=== PATIENT | female | born 1940 | race Caucasian/White ===

== ENCOUNTER 2016-12-28 03:18 | Inpatient (IN) | payer MEDICARE, BC ==
[2016-12-28 03:45] LABS: Glucose,Whole Blood 325 mg/dL (75-99)
[2016-12-28] MEDS ORDERED: HYDROmorphone 1 MG/ML 1 ML SYRINGE IVP STA (03:47)
[2016-12-28] MEDS ORDERED: SODIUM CHLORIDE 0.9% 500 ML IV STA (03:47)
[2016-12-28] MEDS ORDERED: ONDANSETRON 4 MG/2 ML VIAL IVP STA (03:47)
--- NOTE | 2016-12-28 03:49 | ED ---
Abdominal Pain HPI - General Source: patient, family, RN notes reviewed Mode of arrival: wheelchair Limitations: no limitations <Mattie Rinaldi - Last Filed: 12/28/16 03:47> <Deng Amanda - Last Filed: 12/28/16 06:31> - General Chief Complaint: Abdominal Pain Stated Complaint: Abdominal Pain Time Seen by Provider: 12/28/16 03:40 - History of Present Illness Initial Comments: 76-year-old female presents to the emergency department with a chief complaint of abdominal pain. Patient states that this pain has been happening for about 2 days now. Patient states that she started to have just the lower abdominal pain. Patient states she was unable to even lay flat due to the discomfort. Patient patient has some nausea with dry heaves. Patient states she is a dialysis patient and she did not do her peritoneal last night. Patient states that she was concerned because her symptoms just keep worsening so she thought that she should be evaluated. Patient states that she has not had any fever chills that she's been aware of this. Patient denies any chest pain or shortness of breath. Patient states that her glucose has been high on the 400s. Patient states that she was concerned due to the continued pain so she thought that she should be evaluated. (Mattie Rinaldi) - Related Data Home Medications Medication Instructions Recorded Confirmed Aspirin 81 mg PO DAILY 08/24/15 12/28/16 Cholecalciferol [Vitamin D3] 1,000 unit PO BID 08/24/15 12/28/16 Lovastatin [Mevacor] 10 mg PO DAILY 08/24/15 12/28/16 Metoprolol Tartrate [Lopressor] 100 mg PO BID 08/24/15 12/28/16 amLODIPine [Norvasc] 10 mg PO HS 08/24/15 12/28/16 Allopurinol [Zyloprim] 100 mg PO DAILY 11/27/15 12/28/16 Cyanocobalamin [Vitamin B-12] 1,000 mcg PO HS 11/27/15 12/28/16 Insulin Glargine [Lantus] 50 unit SQ HS 11/27/15 12/28/16 Pyridoxine [Vitamin B-6] 100 mg PO HS 11/27/15 12/28/16 Acetaminophen [Tylenol] 1,000 mg PO BID PRN 02/06/16 12/28/16 Insulin Aspart [NovoLOG] 10 unit SQ TID-W/MEALS 02/06/16 12/28/16 Insulin Aspart [NovoLOG] See Protocol SQ TID-W/MEALS 02/06/16 12/28/16 Isosorbide Mononitrate ER [Imdur] 30 mg PO QAM 02/06/16 12/28/16 Omeprazole 40 mg PO AC-BRKFST 02/06/16 12/28/16 Previous Rx's Medication Instructions Recorded hydrALAZINE HCL [Apresoline] 25 mg PO BID #60 tab 09/01/15 Furosemide [Lasix] 80 mg PO Q12HR #60 tablet 12/02/15 Cefuroxime [Ceftin] 250 mg PO BID #14 tablet 02/07/16 Hydrocodone/Acetaminophen [[place] 1 - 2 each PO Q4HR PRN #30 tab 02/07/16 5-325] Allergies Allergy/AdvReac Type Severity Reaction Status Date / Time No Known Allergies Allergy Verified 12/28/16 03:35 Review of Systems ROS Other: All systems not noted in ROS Statement are negative. <Mattie Rinaldi - Last Filed: 12/28/16 03:47> ROS Other: All systems not noted in ROS Statement are negative. <Deng Amanda - Last Filed: 12/28/16 06:31> ROS Statement: Those systems with pertinent positive or pertinent negative responses have been documented in the HPI. Past Medical History Past Medical History: Heart Failure, Diabetes Mellitus, Hyperlipidemia, Hypertension, Myocardial Infarction ([place]), Renal Disease Additional Past Medical History / Comment(s): currently using O2 at 2L NM, Pt is a transfer from [facility] to [facility] for CHF, renal failure. Pt presented today to [facility] with MAYRA x 5 days and getting worse. She has a dry cough and increased edema bilateral legs. 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 Last Myocardial Infarction Date:: unkn- 30 or more yrs ago per EKG History of Any Multi-Drug Resistant Organisms: None Reported Past Surgical History: Back Surgery, Orthopedic Surgery Additional Past Surgical History / Comment(s): 08/31/15 EGD with bx and colonoscopy with ulcerative polyp, right shoulder surgery - humerus ORIF, left ankle ORIF, low back surgery, multiple pain procedures, L cataract removal, R knee arthroscopy. Additional Past Anesthesia/Blood Transfusion Reaction / Comment(s): Pt states she has received blood in the past without reaction. Past Psychological History: No Psychological Hx Reported Additional Psychological History / Comment(s): Pt resides with her spouse. She is independent. She does not use any assistive device. She drives. Smoking Status: Never smoker Past Alcohol Use History: None Reported Past Drug Use History: None Reported - Past Family History Sister(s) Family Medical History: Cancer Additional Family Medical History / Comment(s): Ovarian cancer Brother(s) Family Medical History: Cancer Additional Family Medical History / Comment(s): colon Mother Family Medical History: Diabetes Mellitus Additional Family Medical History / Comment(s): Mother in her 80's Father History Unknown: Yes Additional Family Medical History / Comment(s): Father had a bowel obstruction. He at 84 yrs. <Mattie Rinaldi - Last Filed: 12/28/16 03:47> General Exam Limitations: no limitations <Mattie Rinaldi - Last Filed: 12/28/16 03:47> <Deng Amanda - Last Filed: 12/28/16 06:31> - General Exam Comments Initial Comments: General: The patient is awake and alert, in no distress, and does not appear acutely ill. Eye: Pupils are equal, round and reactive to light, extra-ocular movements are intact; there is normal conjunctiva bilaterally. No signs of icterus. Ears, nose, mouth and throat: There are moist mucous membranes and no oral lesions. Neck: The neck is supple, there is no tenderness. Cardiovascular: There is a regular rate and rhythm. No murmur, rub or gallop is appreciated. Respiratory: Lungs are clear to auscultation, respirations are non-labored, breath sounds are equal. No wheezes, stridor, rales, or rhonchi. Gastrointestinal: Peritoneal dialysis drain appears to be in place Soft, distended, diffusely tender abdomen without masses or organomegaly noted. There is no rebound or guarding present. No CVA tenderness. Bowel sounds are unremarkable. Back: There is no tenderness to palpation in the midline. There is no obvious deformity. No rashes noted. Musculoskeletal: Normal ROM, no tenderness, There is no pedal edema. There is no calf tenderness or swelling. Sensation intact. Pulses equal bilaterally 2+. Neurological: CN II-XII intact, There are no obvious motor or sensory deficits. Coordination appears grossly intact. Speech is normal. Skin: Skin is warm and dry and no rashes or lesions are noted. Psychiatric: Cooperative, appropriate mood & affect, normal judgment. (Mattie Rinaldi) Course <Mattie Rinaldi - Last Filed: 12/28/16 03:47> <Deng Amanda - Last Filed: 12/28/16 06:31> Vital Signs 12/28/16 12/28/16 03:31 05:26 Temperature 99.2 F 100 F H Pulse Rate 104 H 102 H Respiratory 20 20 Rate Blood Pressure 154/73 130/61 O2 Sat by Pulse 92 L 92 L Oximetry - Reevaluation(s) Reevaluation #1: 12/28/16 03:49 This case will be signed out to Dr. Amanda (Mattie Rinaldi) Medical Decision Making <Mattie Rinaldi - Last Filed: 12/28/16 03:47> - Lab Data Result diagrams: 12/28/16 03:58 12/28/16 03:58 - Radiology Data Radiology results: report reviewed (I did review the imaging and report no acute findings or is however evidence of a possible mass in the right kidney.), image reviewed <Deng Amanda - Last Filed: 12/28/16 06:31> - Medical Decision Making The patient did get relief of a lot of the abdominal pain after the dialysate was removed. He was however cloudy does have a low-grade temperature the concern is for early peritonitis patient will be placed on empiric antibiotics she'll be admitted with nephrology consultation the lactic acid was elevated however the patient on clinical exam does not appear to be toxic. (Deng Amanda) - Lab Data Lab Results 12/28/16 12/28/16 12/28/16 Range/Units 03:43 03:58 03:58 WBC 8.1 (3.8-10.6) k/uL RBC 3.65 L (3.80-5.40) m/uL Hgb 12.5 (11.4-16.0) gm/dL Hct 40.0 (34.0-46.0) % MCV 109.4 H (80.0-100.0) fL MCH 34.3 (25.0-35.0) pg MCHC 31.4 (31.0-37.0) g/dL RDW 15.1 (11.5-15.5) % Plt Count 148 L (150-450) k/uL Neutrophils % 87 % Lymphocytes % 6 % Monocytes % 5 % Eosinophils % 0 % Basophils % 0 % Neutrophils # 7.0 (1.3-7.7) k/uL Lymphocytes # 0.5 L (1.0-4.8) k/uL Monocytes # 0.4 (0-1.0) k/uL Eosinophils # 0.0 (0-0.7) k/uL Basophils # 0.0 (0-0.2) k/uL Manual Slide Review Performed Polychromasia Present Anisocytosis (manual) Present Macrocytosis Marked PT (9.0-12.0) sec INR (<1.1) APTT (22.0-30.0) sec Sodium 135 L (137-145) mmol/L Potassium 5.4 H (3.5-5.1) mmol/L Chloride 97 L (98-107) mmol/L Carbon Dioxide 24 (22-30) mmol/L Anion Gap 14 mmol/L BUN 43 H (7-17) mg/dL Creatinine 2.04 H (0.52-1.04) mg/dL Est GFR (MDRD) Af Amer 29 (>60 ml/min/1.73 sqM) Est GFR (MDRD) Non-Af 24 (>60 ml/min/1.73 sqM) Glucose 341 H (74-99) mg/dL POC Glucose (mg/dL) 325 H (75-99) mg/dL POC Glu Malware Analyst ID Arsalan Maew Plasma Lactic Acid [place] (0.7-2.0) mmol/L Calcium 9.2 (8.4-10.2) mg/dL Total Bilirubin 1.8 H (0.2-1.3) mg/dL AST 66 H (14-36) U/L ALT 38 (9-52) U/L Alkaline Phosphatase 121 (38-126) U/L Total Protein 7.1 (6.3-8.2) g/dL Albumin 3.9 (3.5-5.0) g/dL Amylase 44 (30-110) U/L Lipase 37 (23-300) U/L Acetone, Qual Negative (Negative) 12/28/16 12/28/16 Range/Units 03:58 03:58 WBC (3.8-10.6) k/uL RBC (3.80-5.40) m/uL Hgb (11.4-16.0) gm/dL Hct (34.0-46.0) % MCV (80.0-100.0) fL MCH (25.0-35.0) pg MCHC (31.0-37.0) g/dL RDW (11.5-15.5) % Plt Count (150-450) k/uL Neutrophils % % Lymphocytes % % Monocytes % % Eosinophils % % Basophils % % Neutrophils # (1.3-7.7) k/uL Lymphocytes # (1.0-4.8) k/uL Monocytes # (0-1.0) k/uL Eosinophils # (0-0.7) k/uL Basophils # (0-0.2) k/uL Manual Slide Review Polychromasia Anisocytosis (manual) Macrocytosis PT 10.9 (9.0-12.0) sec INR 1.1 (<1.1) APTT 27.1 (22.0-30.0) sec Sodium (137-145) mmol/L Potassium (3.5-5.1) mmol/L Chloride (98-107) mmol/L Carbon Dioxide (22-30) mmol/L Anion Gap mmol/L BUN (7-17) mg/dL Creatinine (0.52-1.04) mg/dL Est GFR (MDRD) Af Amer (>60 ml/min/1.73 sqM) Est GFR (MDRD) Non-Af (>60 ml/min/1.73 sqM) Glucose (74-99) mg/dL POC Glucose (mg/dL) (75-99) mg/dL POC Glu Malware Analyst ID Plasma Lactic Acid [place] 3.1 H* (0.7-2.0) mmol/L Calcium (8.4-10.2) mg/dL Total Bilirubin (0.2-1.3) mg/dL AST (14-36) U/L ALT (9-52) U/L Alkaline Phosphatase (38-126) U/L Total Protein (6.3-8.2) g/dL Albumin (3.5-5.0) g/dL Amylase (30-110) U/L Lipase (23-300) U/L Acetone, Qual (Negative) Disposition <Mattie Rinaldi - Last Filed: 12/28/16 03:47> <Deng Amanda - Last Filed: 12/28/16 06:31> Clinical Impression: Peritonitis associated with peritoneal dialysis, Abdominal pain, Fever, Sepsis , Renal failure Disposition: ADMITTED IP TO THIS HOSP Condition: Stable
[2016-12-28 04:19] LABS: Basophils % (A) 0 %; CH 36.1; CHCM 33.2; Eosinophils % (A) 0 %; HDW 2.94; HGB 12.5 gm/dL (11.4-16.0); Luc # (Auto) 0.13; Luc % (Auto) 2; Lymphocytes # (A) 0.5 k/uL (1.0-4.8); Lymphocytes % (A) 6 %; MCH 34.3 pg (25.0-35.0); MCHC 31.4 g/dL (31.0-37.0); MCV 109.4 fL (80.0-100.0); Macrocytosis Marked; Mean Platelet Volume 7.8; Monocytes # (A) 0.4 k/uL (0-1.0); Monocytes % (A) 5 %; Neutrophils % (A) 87 %; RBC 3.65 m/uL (3.80-5.40); RDW 15.1 % (11.5-15.5); WBC 8.1 k/uL (3.8-10.6); WBC (Perox) 8.03
[2016-12-28 04:20] LABS: Alkaline Phosphatase 121 U/L (38-126); Amylase 44 U/L (30-110); Anion Gap 14 mmol/L; Calcium 9.2 mg/dL (8.4-10.2); Carbon Dioxide 24 mmol/L (22-30); Chloride 97 mmol/L (98-107); Glucose 341 mg/dL (74-99); Non-African American GFR(MDRD) 24 (>60 ml/min/1.73 sqM); Sodium 135 mmol/L (137-145)
[2016-12-28 04:23] LABS: Potassium 5.4 mmol/L (3.5-5.1); Total Protein 7.1 g/dL (6.3-8.2)
[2016-12-28 04:24] LABS: AST 66 U/L (14-36); Total Bilirubin 1.8 mg/dL (0.2-1.3)
[2016-12-28 04:25] LABS: ALT 38 U/L (9-52); Blood Urea Nitrogen 43 mg/dL (7-17)
[2016-12-28 04:34] LABS: Manual Review Performed; Polychromasia Present
[2016-12-28 04:35] LABS: INR 1.1 (<1.1); Partial Thromboplastin Time 27.1 sec (22.0-30.0); Prothrombin Time 10.9 sec (9.0-12.0)
--- NOTE | 2016-12-28 04:47 | CT ---
EXAM: CT Abdomen and Pelvis Without Intravenous Contrast. CLINICAL HISTORY: Reason: Pain TECHNIQUE: Axial computed tomography images of the abdomen and pelvis without intravenous contrast. CTDI is 17.9 mGy and DLP is 1008.5 mGy-cm Coronal and sagittal reformatted images were created and reviewed. COMPARISON: No relevant prior studies available. FINDINGS: Lower thorax: Left lower lobe 5.9 mm nodule. Right lower lobe 6.4 mm nodule. Bilateral interstitial thickening of the visualized lung bases which may reflect a degree of pulmonary edema. Cardiomegaly. ABDOMEN: Liver: Unremarkable. Gallbladder and bile ducts: Cholelithiasis. Pancreas: Unremarkable. No ductal dilation. Spleen: Unremarkable. No splenomegaly. Adrenals: Unremarkable. No mass. Kidneys and ureters: Right renal 4.7 cm mass not well evaluated. Bilateral renal lobulated contours. Stomach and bowel: Minimally dilated small bowel loops. No definite obstruction. No mucosal thickening. Appendix: Appendix is not well visualized. PELVIS: Bladder: Unremarkable. No stones. Reproductive: Unremarkable as visualized. ABDOMEN and PELVIS: Intraperitoneal space: Peritoneal dialysis catheter with a moderate amount of free fluid and a small amount of free air. Bones/joints: Osteopenia. Multilevel degenerative changes of the spine. Anterolisthesis of L4 over L5 with posterior fusion. No acute fracture. No dislocation. Soft tissues: Unremarkable. Vasculature: Unremarkable. No abdominal aortic aneurysm. Lymph nodes: Unremarkable. No enlarged lymph nodes. IMPRESSION: 1. Peritoneal dialysis catheter with a moderate amount of free fluid and a small amount of free air. 2. Cholelithiasis. 3. Left lower lobe 5.9 mm nodule. Right lower lobe 6.4 mm nodule. In low-risk patients (minimal or absent history of smoking or other known risk factors), recommend CT at 12 months. If stable, no further follow- up. For high-risk patients (history of smoking or other known risk factors), recommend initial CT at 6-12 months. If stable, repeat CT at 18-24 months. 4. Bilateral interstitial thickening of the visualized lung bases which may reflect a degree of pulmonary edema. 5. Right renal 4.7 cm mass not well evaluated. Further evaluation may be performed with pre and postcontrast CT. 6. Minimally dilated small bowel loops with no definite evidence of obstruction.
[2016-12-28] MEDS ORDERED: DIALYSIS (PERITONEAL) DEX 1.5% 2,500 ML INTRAPERIT SCH (06:00)
[2016-12-28] MEDS ORDERED: PIPERACILLIN-TAZOBACTAM 3.375 GM in DEXTROSE/WATER 1 50ML.BAG IVPB STA (06:01)
[2016-12-28] MEDS ORDERED: ONDANSETRON 4 MG/2 ML VIAL IVP PRN (06:31)
[2016-12-28] MEDS ORDERED: NALOXONE 0.4 MG/ML 1 ML VIAL IV PRN (06:31)
[2016-12-28] MEDS ORDERED: ACETAMINOPHEN TAB 500 MG TAB PO PRN (06:35)
[2016-12-28] MEDS ORDERED: IV VANCOMYCIN PER PHARMACY 1 EACH MISC MISCELLANE PRN (06:35)
[2016-12-28] MEDS ORDERED: VANCOMYCIN 1,500 MG in SODIUM CHLORIDE 0.9% 250 ML IVPB ONE (07:00)
[2016-12-28] MEDS: HYDROcodone/APAP 5-325MG 1 EACH TAB PO PRN ×4 (07:09→22:07)
[2016-12-28 08:37] LABS: Glucose,Whole Blood 254 mg/dL (75-99)
[2016-12-28] MEDS: SODIUM CHLORIDE 0.9% 1,000 ML IV SCH (09:38)
[2016-12-28] MEDS: INSULIN LISPRO (humaLOG) 300 UNIT/3 ML VIAL SQ SCH ×7 (09:40→22:11)
[2016-12-28] MEDS: PANTOPRAZOLE 40 MG TABLET PO SCH (09:42)
[2016-12-28] MEDS: CHOLECALCIFEROL 1,000 UNIT TAB PO SCH ×2 (09:43→22:10)
[2016-12-28] MEDS: ATORVASTATIN 10 MG TAB PO SCH (09:43)
[2016-12-28] MEDS: ALLOPURINOL 100 MG TAB PO SCH (09:43)
[2016-12-28] MEDS: FUROSEMIDE 80 MG TAB PO SCH ×2 (09:43→22:10)
[2016-12-28] MEDS: hydrALAZINE HCL 25 MG TAB PO SCH ×2 (09:44→22:10)
[2016-12-28] MEDS: METOPROLOL TARTRATE 50 MG TAB PO SCH (09:44)
[2016-12-28] MEDS: ISOSORBIDE MONONITRATE ER 30 MG TAB.ER.24H PO SCH (09:44)
--- NOTE | 2016-12-28 10:48 | P.NPCON ---
History of Present Illness - Reason for Consult end stage renal disease - History of Present Illness Reason for consultation: End-stage renal disease History of present illness: Patient is a 76-year-old female seen in renal consultation for end- stage renal disease. She is maintained on peritoneal dialysis which was started about 8 months ago. Patient presented with abdominal discomfort going on for the last few days. She also noticed cloudy dialysate prior to admission. She was nauseous and has been dry heaving but did tolerate oral intake this morning. Her lactic acid was 3.1 on admission and is improved to 2.3 today. She is currently maintained on IV fluids running at 100 mL an hour. Denies any chest pain or shortness of breath. Hemodynamically she's been stable. She did have a temperature of 100F this admission. Vital signs are stable. General: The patient appeared well nourished and normally developed. HEENT: Head exam is unremarkable. Neck is without jugular venous distension. LUNGS: Lungs are clear to auscultation and percussion. Breath sounds decreased. HEART: Rate and Rhythm are regular. First and second heart sounds normal. No murmurs, rubs or gallops. ABDOMEN: Abdominal exam reveals normal bowel sounds. Mildly tender to palpation. EXTREMITITES: No clubbing, cyanosis, or edema. Past Medical History Past Medical History: Heart Failure, Diabetes Mellitus, Hyperlipidemia, Hypertension, Myocardial Infarction ([place]), Renal Disease Additional Past Medical History / Comment(s): ,11/27/15 Pt is a transfer from [facility] to [facility] for CHF, renal failure. Pt presented today to [facility] with MAYRA x 5 days and getting worse. She has a dry cough. 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 Last Myocardial Infarction Date:: unkn- 30 or more yrs ago per EKG History of Any Multi-Drug Resistant Organisms: None Reported Past Surgical History: Back Surgery, Orthopedic Surgery Additional Past Surgical History / Comment(s): 08/31/15 EGD with bx and colonoscopy with ulcerative polyp, right shoulder surgery - humerus ORIF, left ankle ORIF, low back surgery, multiple pain procedures, L cataract removal, R knee arthroscopy. Past Anesthesia/Blood Transfusion Reactions: No Reported Reaction Additional Past Anesthesia/Blood Transfusion Reaction / Comment(s): Pt states she has received blood in the past without reaction. Past Psychological History: No Psychological Hx Reported Additional Psychological History / Comment(s): Pt resides with her spouse. She is independent. She does not use any assistive device. She drives. Smoking Status: Never smoker Past Alcohol Use History: None Reported Past Drug Use History: None Reported - Past Family History Sister(s) Family Medical History: Cancer Additional Family Medical History / Comment(s): Ovarian cancer Brother(s) Family Medical History: Cancer Additional Family Medical History / Comment(s): colon Mother Family Medical History: Diabetes Mellitus Additional Family Medical History / Comment(s): Mother in her 80's Father History Unknown: Yes Additional Family Medical History / Comment(s): Father had a bowel obstruction. He at 84 yrs. Medications and Allergies Home Medications Medication Instructions Recorded Confirmed Type Aspirin 81 mg PO DAILY 08/24/15 12/28/16 History Cholecalciferol [Vitamin D3] 1,000 unit PO BID 08/24/15 12/28/16 History Lovastatin [Mevacor] 10 mg PO DAILY 08/24/15 12/28/16 History Metoprolol Tartrate [Lopressor] 100 mg PO BID 08/24/15 12/28/16 History amLODIPine [Norvasc] 10 mg PO HS 08/24/15 12/28/16 History Allopurinol [Zyloprim] 100 mg PO DAILY 11/27/15 12/28/16 History Cyanocobalamin [Vitamin B-12] 1,000 mcg PO HS 11/27/15 12/28/16 History Insulin Glargine [Lantus] 50 unit SQ HS 11/27/15 12/28/16 History Pyridoxine [Vitamin B-6] 100 mg PO HS 11/27/15 12/28/16 History Acetaminophen [Tylenol] 1,000 mg PO BID PRN 02/06/16 12/28/16 History Insulin Aspart [NovoLOG] 10 unit SQ TID-W/MEALS 02/06/16 12/28/16 History Insulin Aspart [NovoLOG] See Protocol SQ TID-W/MEALS 02/06/16 12/28/16 History Isosorbide Mononitrate ER [Imdur] 30 mg PO QAM 02/06/16 12/28/16 History Omeprazole 40 mg PO AC-BRKFST 02/06/16 12/28/16 History Allergies Allergy/AdvReac Type Severity Reaction Status Date / Time No Known Allergies Allergy Verified 12/28/16 03:35 Physical Exam Vitals: Vital Signs Temp Pulse Pulse Resp BP BP Pulse Ox 12/28/16 08:38 100 16 12/28/16 08:36 98.1 F 100 16 135/62 97 12/28/16 07:05 99 20 140/59 96 Intake and Output 12/27/16 12/28/16 12/28/16 22:59 06:59 14:59 Other: Voiding Method Toilet Results - Lab Results Most recent lab results Calcium 9.2 mg/dL (8.4-10.2) 12/28/16 03:58 12/28/16 03:58 12/28/16 03:58 Assessment and Plan Plan: Assessment: #1. End-stage renal disease maintained on peritoneal dialysis. #2. Abdominal discomfort possibly related to peritonitis. She did have cloudy dialysate prior to admission. Currently maintained on IV antibiotics. #3. Chronic kidney disease mineral bone disease. #4. Lactic acidosis. #5. Insulin-dependent diabetes mellitus. Plan: Check peritoneal fluid for cell count, culture, and Gram stain. Continue with IV antibiotics for now. I will give her 1 g of intraperitoneal vancomycin as well as Fortaz. Check phosphorus level. Nephrocaps daily. Decrease rate of IV fluids to 50 mL an hour. Continue with 2 L 1.5% changes every 6 hours. Thank you for the consultation. I will continue to follow the patient with you during her hospital stay.
[2016-12-28] MEDS: ASPIRIN 81 MG CHEW PO SCH (11:16)
[2016-12-28 12:02] LABS: Glucose,Whole Blood 221 mg/dL (75-99)
[2016-12-28 12:06] LABS: Amorphous Sediment,Urine Rare /hpf; Appearance,Urine Cloudy (Clear); Bacteria,Urine Many /hpf; Bilirubin,Urine Negative (Negative); Glucose,Urine (UA) Negative (Negative); Ketones,Urine Negative (Negative); Leukocyte Esterase,Urine Large (Negative); Mucus,Urine Occasional /hpf; Nitrite,Urine Negative (Negative); Particle Count 52441; Protein,Urine 1+ (Negative); RBC,Urine 5 /hpf (0-5); Specific Gravity,Urine 1.017 (1.001-1.035); Squamous Epithelial Cell,Urine 5 /hpf (0-4); UA Billing (MACRO vs. MICRO) MICRO; Urobilinogen,Urine <2.0 mg/dL (<2.0); WBC,Urine 26 /hpf (0-5)
[2016-12-28] MEDS: DIALYSIS DEX INTRAPERIT SCH (12:44)
[2016-12-28 14:26] LABS: Hemoglobin A1C 7.8 % (4.2-6.1)
[2016-12-28 15:32] LABS: RBC, Body Fluid 2550 /uL
[2016-12-28 16:44] LABS: Glucose,Whole Blood 151 mg/dL (75-99)
[2016-12-28] MEDS: PIPERACILLIN-TAZOBACTAM 3.375 GM in DEXTROSE/WATER 1 50ML.BAG IVPB SCH (16:47)
--- NOTE | 2016-12-28 17:57 | P.HPIM ---
History of Present Illness H&P Date: 12/28/16 76-year-old female currently maintained on peritoneal dialysis via cycler comes in to the hospital with the complaint of abdominal pain that is diffuse in nature 3-4 days. Patient states that the pain has progressively gotten worse associated with some difficulty breathing as well. Patient was noted to have diffuse abdominal pain PD catheter insertion site appeared to be normal. Peritoneal fluid was removed for evaluation. With the clinical suspicion for a peritonitis. Patient was started on IV antibiotics and admitted to the hospital. Patient states that she feels better since admission. Denies having any chest pain difficulty breathing nausea vomiting or diarrhea. Patient does make. Denies having any urinary urgency or frequency at this time. Patient has been maintained on peritoneal dialysis for over 8 months and has not had any issues since then. Review of Systems All systems: negative Past Medical History Past Medical History: Heart Failure, Diabetes Mellitus, Hyperlipidemia, Hypertension, Myocardial Infarction (CO), Renal Disease Additional Past Medical History / Comment(s): ,11/27/15 Pt is a transfer from [facility] to [facility] for CHF, renal failure. Pt presented today to [facility] with MAYRA x 5 days and getting worse. She has a dry cough. 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 Last Myocardial Infarction Date:: unkn- 30 or more yrs ago per EKG History of Any Multi-Drug Resistant Organisms: None Reported Past Surgical History: Back Surgery, Orthopedic Surgery Additional Past Surgical History / Comment(s): 08/31/15 EGD with bx and colonoscopy with ulcerative polyp, right shoulder surgery - humerus ORIF, left ankle ORIF, low back surgery, multiple pain procedures, L cataract removal, R knee arthroscopy. Past Anesthesia/Blood Transfusion Reactions: No Reported Reaction Additional Past Anesthesia/Blood Transfusion Reaction / Comment(s): Pt states she has received blood in the past without reaction. Past Psychological History: No Psychological Hx Reported Additional Psychological History / Comment(s): Pt resides with her spouse. She is independent. She does not use any assistive device. She drives. Smoking Status: Never smoker Past Alcohol Use History: None Reported Past Drug Use History: None Reported - Past Family History Sister(s) Family Medical History: Cancer Additional Family Medical History / Comment(s): Ovarian cancer Brother(s) Family Medical History: Cancer Additional Family Medical History / Comment(s): colon Mother Family Medical History: Diabetes Mellitus Additional Family Medical History / Comment(s): Mother in her 80's Father History Unknown: Yes Additional Family Medical History / Comment(s): Father had a bowel obstruction. He at 84 yrs. Medications and Allergies Home Medications Medication Instructions Recorded Confirmed Type Aspirin 81 mg PO DAILY 08/24/15 12/28/16 History Cholecalciferol [Vitamin D3] 1,000 unit PO BID 08/24/15 12/28/16 History Lovastatin [Mevacor] 10 mg PO DAILY 08/24/15 12/28/16 History Metoprolol Tartrate [Lopressor] 50 mg PO BID 08/24/15 12/28/16 History amLODIPine [Norvasc] 5 mg PO HS 08/24/15 12/28/16 History Allopurinol [Zyloprim] 100 mg PO DAILY 11/27/15 12/28/16 History Cyanocobalamin [Vitamin B-12] 1,000 mcg PO HS 11/27/15 12/28/16 History Insulin Glargine [Lantus] 50 unit SQ HS 11/27/15 12/28/16 History Pyridoxine [Vitamin B-6] 100 mg PO HS 11/27/15 12/28/16 History Acetaminophen [Tylenol] 1,000 mg PO BID PRN 02/06/16 12/28/16 History Insulin Aspart [NovoLOG] 10 unit SQ TID-W/MEALS 02/06/16 12/28/16 History Insulin Aspart [NovoLOG] See Protocol SQ TID-W/MEALS 02/06/16 12/28/16 History Isosorbide Mononitrate ER [Imdur] 30 mg PO QAM 02/06/16 12/28/16 History Omeprazole 40 mg PO AC-BRKFST 02/06/16 12/28/16 History Allergies Allergy/AdvReac Type Severity Reaction Status Date / Time No Known Allergies Allergy Verified 12/28/16 11:24 Physical Exam Vitals: Vital Signs Temp Pulse Pulse Resp BP BP Pulse Ox 12/28/16 17:00 97.1 F L 90 18 128/61 92 L 12/28/16 11:15 98 16 126/57 96 12/28/16 08:38 100 16 12/28/16 08:36 98.1 F 100 16 135/62 97 12/28/16 07:05 99 20 140/59 96 Intake and Output 12/28/16 12/28/16 12/28/16 06:59 14:59 22:59 Intake Total 850 Output Total 250 Balance 600 Intake: IV 600 Sodium Chloride 0.9% 1, 600 000 ml @ 50 mls/hr IV . Q20H [facility] Rx#:[id number] Intake, IV Titration 250 Amount Vancomycin 1,500 mg In 250 Sodium Chloride 0.9% 250 ml @ 125 mls/hr IVPB ONCE ONE Rx#:[id number] Output: Urine 250 Other: Voiding Method Toilet Toilet Physical exam Gen. appearance oriented 3 in no distress Neck is supple no JVD Lungs good air entry clear to auscultation no rhonchi or wheezing Heart S1-S2 heard regular rate and rhythm no murmurs appreciated Abdomen soft tender to palpation in epigastric region no organomegaly PD catheter Neurologically cranial nerves II-12 grossly intact no focal motor or sensory deficits noted Skin no abnormalities appreciated Results CBC & Chem 7: 12/28/16 03:58 12/28/16 03:58 Labs: Abnormal Lab Results - Last 24 Hours (Table) 12/28/16 12/28/16 12/28/16 Range/Units 07:49 07:49 08:33 POC Glucose (mg/dL) 254 H (75-99) mg/dL Hemoglobin A1c 7.8 H (4.2-6.1) % Plasma Lactic Acid [place] 2.3 H* (0.7-2.0) mmol/L Urine Appearance (Clear) Urine Protein (Negative) Ur Leukocyte Esterase (Negative) Urine WBC (0-5) /hpf Ur Squamous Epith Cells (0-4) /hpf Amorphous Sediment (None) /hpf Urine Bacteria (None) /hpf Urine Mucus (None) /hpf 12/28/16 12/28/16 12/28/16 Range/Units 11:30 12:00 16:43 POC Glucose (mg/dL) 221 H 151 H (75-99) mg/dL Hemoglobin A1c (4.2-6.1) % Plasma Lactic Acid [place] (0.7-2.0) mmol/L Urine Appearance Cloudy H (Clear) Urine Protein 1+ H (Negative) Ur Leukocyte Esterase Large H (Negative) Urine WBC 26 H (0-5) /hpf Ur Squamous Epith Cells 5 H (0-4) /hpf Amorphous Sediment Rare H (None) /hpf Urine Bacteria Many H (None) /hpf Urine Mucus Occasional H (None) /hpf Thrombosis Risk Factor Assmnt - Choose All That Apply Each Risk Factor Represents 2 Points: Age 61-74 years Thrombosis Risk Factor Assessment Total Risk Factor Score: 2 Thrombosis Risk Factor Assessment Level: Low Risk Assessment and Plan Plan: End-stage renal disease on PD #2 hyperkalemia #3 peritonitis #4 pulmonary nodules bilaterally will need to be followed up as an outpatient #5 history of hypertension #6 history of HF PEF currently stable Plan Continue antibody therapy. Vitals are stable. Continue pain control. Was sent for cell count cultures. Await final cultures. Does appear to have some WBC however clinical diagnosis of peritonitis is present.
[2016-12-28] MEDS ORDERED: DIALYSIS DEX INTRAPERIT ONE (18:00)
[2016-12-28] MEDS ORDERED: VANCOMYCIN INTRAPERIT ONE (18:00)
[2016-12-28] MEDS ORDERED: CEFTAZIDIME INTRAPERIT ONE (18:00)
[2016-12-28 21:43] LABS: Glucose,Whole Blood 132 mg/dL (75-99)
[2016-12-28] MEDS: INSULIN GLARGINE 100 UNIT/ML 10 ML VIAL SQ SCH (22:08)
[2016-12-28] MEDS: amLODIPine 10 MG TAB PO SCH (22:10)
[2016-12-28] MEDS: CYANOCOBALAMIN 500 MCG TAB PO SCH (22:10)
[2016-12-28] MEDS: PYRIDOXINE 50 MG TAB PO SCH (22:10)
[2016-12-29] MEDS: DIALYSIS DEX INTRAPERIT SCH ×4 (00:35→18:13)
[2016-12-29] MEDS: METOPROLOL TARTRATE 50 MG TAB PO SCH ×3 (01:52→21:13)
[2016-12-29] MEDS: HYDROcodone/APAP 5-325MG 1 EACH TAB PO PRN ×3 (02:03→10:40)
[2016-12-29] MEDS: PIPERACILLIN-TAZOBACTAM 3.375 GM in DEXTROSE/WATER 1 50ML.BAG IVPB SCH ×3 (02:06→18:13)
[2016-12-29 06:15] LABS: Glucose,Whole Blood 250 mg/dL (75-99)
[2016-12-29] MEDS: SODIUM CHLORIDE 0.9% 1,000 ML IV SCH ×2 (06:22→21:49)
[2016-12-29] MEDS: PANTOPRAZOLE 40 MG TABLET PO SCH (06:22)
[2016-12-29] MEDS: INSULIN LISPRO (humaLOG) 300 UNIT/3 ML VIAL SQ SCH ×8 (07:37→21:25)
[2016-12-29] MEDS: ISOSORBIDE MONONITRATE ER 30 MG TAB.ER.24H PO SCH (08:20)
[2016-12-29] MEDS: CHOLECALCIFEROL 1,000 UNIT TAB PO SCH ×2 (08:20→21:13)
[2016-12-29] MEDS: FUROSEMIDE 80 MG TAB PO SCH ×2 (08:20→21:14)
[2016-12-29] MEDS: ASPIRIN 81 MG CHEW PO SCH (08:20)
[2016-12-29] MEDS: ALLOPURINOL 100 MG TAB PO SCH (08:20)
[2016-12-29] MEDS: ATORVASTATIN 10 MG TAB PO SCH (08:20)
[2016-12-29] MEDS: hydrALAZINE HCL 25 MG TAB PO SCH ×2 (08:20→21:13)
--- NOTE | 2016-12-29 08:53 | P.PN ---
Subjective Patient is seen in follow-up for end-stage renal disease. She is maintained on peritoneal dialysis. Patient presented with abdominal pain along with nausea and dry heaving. Dialysate fluid was also noted to be cloudy. Her cell count is over 5000 with 93% PMNs. She did receive intraperitoneal vancomycin on December 28 as well as 1 g Fortaz intraperitoneally. She is also on IV Zosyn and vancomycin. She continues to have abdominal discomfort. Appetite is fair. Vital signs are stable. General: The patient appeared well nourished and normally developed. HEENT: Head exam is unremarkable. Neck is without jugular venous distension. LUNGS: Lungs are clear to auscultation and percussion. Breath sounds decreased. HEART: Rate and Rhythm are regular. First and second heart sounds normal. No murmurs, rubs or gallops. ABDOMEN: Abdominal exam reveals normal bowel sounds. Non-tender and non- distended. No evidence of peritonitis. EXTREMITITES: No clubbing, cyanosis, or edema. Objective - Vital Signs Vital signs: Vital Signs Temp 96.1 F L 12/29/16 08:10 Pulse 70 12/29/16 08:10 Resp 16 12/29/16 08:10 BP 104/55 12/29/16 08:10 Pulse Ox 92 L 12/29/16 08:10 Intake & Output 12/28/16 12/29/16 12/29/16 18:59 06:59 18:59 Intake Total 850 Output Total 250 200 Balance 600 -200 Intake: IV 600 Sodium Chloride 0.9% 1, 600 000 ml @ 50 mls/hr IV . Q20H [facility] Rx#:[id number] Intake, IV Titration 250 Amount Vancomycin 1,500 mg In 250 Sodium Chloride 0.9% 250 ml @ 125 mls/hr IVPB ONCE ONE Rx#:[id number] Output: Urine 250 200 Other: Voiding Method Toilet Toilet - Labs CBC & Chem 7: 12/28/16 03:58 12/28/16 03:58 Labs: Abnormal Lab Results - Last 24 Hours (Table) 12/28/16 12/28/16 12/28/16 Range/Units 07:49 07:49 11:30 POC Glucose (mg/dL) (75-99) mg/dL Hemoglobin A1c 7.8 H (4.2-6.1) % Plasma Lactic Acid [place] 2.3 H* (0.7-2.0) mmol/L Urine Appearance Cloudy H (Clear) Urine Protein 1+ H (Negative) Ur Leukocyte Esterase Large H (Negative) Urine WBC 26 H (0-5) /hpf Ur Squamous Epith Cells 5 H (0-4) /hpf Amorphous Sediment Rare H (None) /hpf Urine Bacteria Many H (None) /hpf Urine Mucus Occasional H (None) /hpf 12/28/16 12/28/16 12/28/16 Range/Units 12:00 16:43 21:41 POC Glucose (mg/dL) 221 H 151 H 132 H (75-99) mg/dL Hemoglobin A1c (4.2-6.1) % Plasma Lactic Acid [place] (0.7-2.0) mmol/L Urine Appearance (Clear) Urine Protein (Negative) Ur Leukocyte Esterase (Negative) Urine WBC (0-5) /hpf Ur Squamous Epith Cells (0-4) /hpf Amorphous Sediment (None) /hpf Urine Bacteria (None) /hpf Urine Mucus (None) /hpf 12/29/16 Range/Units 06:13 POC Glucose (mg/dL) 250 H (75-99) mg/dL Hemoglobin A1c (4.2-6.1) % Plasma Lactic Acid [place] (0.7-2.0) mmol/L Urine Appearance (Clear) Urine Protein (Negative) Ur Leukocyte Esterase (Negative) Urine WBC (0-5) /hpf Ur Squamous Epith Cells (0-4) /hpf Amorphous Sediment (None) /hpf Urine Bacteria (None) /hpf Urine Mucus (None) /hpf Microbiology - Last 24 Hours (Table) 12/28/16 13:20 Gram Stain - Preliminary Peritoneal Fluid Body Fluid Culture - Preliminary 12/28/16 11:30 Urine Culture - Preliminary Urine,Clean Catch Assessment and Plan Plan: Assessment: #1. End-stage renal disease maintained on peritoneal dialysis. #2. Abdominal discomfort secondary to peritonitis. #3. Chronic kidney disease mineral bone disease. #4. Lactic acidosis. #5. Insulin-dependent diabetes mellitus. Plan: Repeat peritoneal fluid for cell count, culture, and Gram stain. Maintain 1 g intraperitoneal Fortaz daily (started 12/28). She also received intraperitoneal vancomycin on December 28. Nephrocaps daily. Decrease rate of IV fluids to 50 mL an hour. Hep-Lock if tolerating oral intake. Repeat lactic acid level. Continue with 2 L 1.5% changes every 6 hours. Obtain infectious disease consultation.
[2016-12-29] MEDS ORDERED: CEFTAZIDIME INTRAPERIT SCH (12:00)
[2016-12-29] MEDS ORDERED: VANCOMYCIN 1,000 MG in SODIUM CHLORIDE 0.9% 250 ML IVPB ONE (12:00)
[2016-12-29] MEDS ORDERED: DIALYSIS DEX INTRAPERIT SCH ×2 (12:00→18:00)
[2016-12-29 12:07] LABS: Glucose,Whole Blood 192 mg/dL (75-99)
[2016-12-29] MEDS: FOLIC ACID-VIT B COMPLEX-VIT C 1 CAP PO SCH (12:42)
[2016-12-29] MEDS: HYDROcodone/APAP 7.5-325MG 1 EACH TAB PO PRN ×2 (14:11→18:13)
[2016-12-29] MEDS: LACTULOSE 20 GM/30 ML CUP PO SCH ×2 (14:12→21:14)
--- NOTE | 2016-12-29 14:53 | XR ---
EXAMINATION TYPE: XR abdomen 2V DATE OF EXAM ORDERED: 12/29/2016 2:44 PM HISTORY: Peritonitis/constipation. COMPARISON: Previous CT scan dated 12/28/2016. FINDINGS: There are dilated loops of bowel within the midabdomen. Some of these have haustral markin gs. Others demonstrate valvula conniventes. These are moderately dilated. There is been a previous interpedicular fusion of the lower lumbar spine. There is a dialysis catheter in place with its tip coiled in the pelvis. No free fluid and no free ai r is seen. IMPRESSION: FINDINGS MOST CONSISTENT WITH GENERALIZED ILEUS.
--- NOTE | 2016-12-29 15:49 | P.PN ---
Subjective 76-year-old female currently maintained on peritoneal dialysis via cycler comes in to the hospital with the complaint of abdominal pain that is diffuse in nature 3-4 days. Patient states that the pain has progressively gotten worse associated with some difficulty breathing as well. Patient was noted to have diffuse abdominal pain PD catheter insertion site appeared to be normal. Peritoneal fluid was removed for evaluation. With the clinical suspicion for a peritonitis. Patient was started on IV antibiotics and admitted to the hospital. Patient states that she feels better since admission. Denies having any chest pain difficulty breathing nausea vomiting or diarrhea. Patient does make. Denies having any urinary urgency or frequency at this time. Patient has been maintained on peritoneal dialysis for over 8 months and has not had any issues since then. 12/29/2016 Patient states that her abdominal pain is persistent however denies any fevers chills nausea vomiting. Was draining during the time of my evaluation. Objective - Vital Signs Vital signs: Vital Signs Temp 96.1 F L 12/29/16 08:10 Pulse 70 12/29/16 08:10 Resp 16 12/29/16 08:10 BP 104/55 12/29/16 08:10 Pulse Ox 92 L 12/29/16 08:10 Intake & Output 12/28/16 12/29/16 12/29/16 18:59 06:59 18:59 Intake Total 850 220 Output Total 250 200 Balance 600 -200 220 Intake: IV 600 Sodium Chloride 0.9% 1, 600 000 ml @ 50 mls/hr IV . Q20H [facility] Rx#:[id number] Intake, IV Titration 250 Amount Vancomycin 1,500 mg In 250 Sodium Chloride 0.9% 250 ml @ 125 mls/hr IVPB ONCE ONE Rx#:[id number] Oral 220 Output: Urine 250 200 Other: Voiding Method Toilet Toilet - Exam Gen. appears alert oriented 3 in no distress Lungs good air movement trace crackles on the right base no rhonchi or wheezing Heart S1-S2 heard regular rate and rhythm no murmurs. Abdomen is tender diffusely PD catheter in place Lower extremity is no edema noted Neuro exam no focal motor or sensory deficits noted. - Labs CBC & Chem 7: 12/28/16 03:58 12/28/16 03:58 Labs: Abnormal Lab Results - Last 24 Hours (Table) 12/28/16 12/28/16 12/29/16 Range/Units 16:43 21:41 06:13 POC Glucose (mg/dL) 151 H 132 H 250 H (75-99) mg/dL Plasma Lactic Acid [place] (0.7-2.0) mmol/L 12/29/16 12/29/16 Range/Units 09:20 12:05 POC Glucose (mg/dL) 192 H (75-99) mg/dL Plasma Lactic Acid [place] 2.3 H* (0.7-2.0) mmol/L Microbiology - Last 24 Hours (Table) 12/28/16 13:20 Gram Stain - Preliminary Peritoneal Fluid Body Fluid Culture - Preliminary 12/28/16 11:30 Urine Culture - Preliminary Urine,Clean Catch Assessment and Plan Plan: End-stage renal disease on PD #2 hyperkalemia #3 peritonitis #4 pulmonary nodules bilaterally will need to be followed up as an outpatient #5 history of hypertension #6 history of HF PEF currently stable Plan continue antibiotic therapy await final cultures infectious disease consult.
[2016-12-29 16:49] LABS: Glucose,Whole Blood 136 mg/dL (75-99)
[2016-12-29] MEDS: CEFTAZIDIME INTRAPERIT SCH (18:13)
[2016-12-29 19:19] LABS: RBC, Body Fluid 90 /uL
--- NOTE | 2016-12-29 20:11 | CONS ---
DATE OF CONSULTATION: 12/29/2016 REASON FOR CONSULTATION: PD catheter associated urinary peritonitis. HISTORY OF PRESENT ILLNESS: The patient is a 76-year-old female with past medical history significant for end-stage renal disease on peritoneal dialysis since February 2016. The patient did not have any prior episodes of peritonitis. The patient said she was doing well until when she started having abdominal pain. Pain has been mostly generalized describing to be sharp in nature, about 7 to 8 out of 10. The patient denies significant nausea, vomiting or any diarrhea with it. The next day on Friday, the patient noticed the peritoneal fluid is getting more cloudy. With these symptoms, the patient did present to the [facility] ER. The patient had been evaluated by the ER physician. The patient did have a low-grade fever of 100 and did have a normal white count of 8.1. The patient did have peritoneal fluid which did show a white count of 5425 with 93% WB polymorph. Patient did have a UA that has been positive as well with an elevated lactic acid 2.3. The peritoneal fluid culture now showing gram-negative bacilli. Patient started on IV vancomycin in addition to the Fortaz and the dialysis. I was asked to see the patient for further recommendation regarding antibiotic therapy. REVIEW OF SYSTEMS: CONSTITUTIONAL: Positive for weakness and low-grade fever. EYES: No complaint. ENT: No complaint. RESPIRATORY: No complaint. CARDIOVASCULAR: No complaint. GENITOURINARY: No complaint. GASTROINTESTINAL: As per HPI. MUSCULOSKELETAL: No complaint. INTEGUMENTARY: No complaint. PSYCHOLOGIC: No complaint. ENDOCRINE: No complaint. NEUROLOGIC: No complaint. Past medical history significant for end stage renal disease on peritoneal dialysis, hypertension, hyperlipidemia, diabetes mellitus, heart failure, myocardial infarction, history of recurrent urinary tract infection. PAST SURGICAL HISTORY: Back surgery, PD catheter placement, EGD with biopsy. Left ankle ORIF, left cataract removal and right knee arthroscopy. SOCIAL HISTORY: The patient denies smoking, drinking or drug use. FAMILY HISTORY: Sister with ovarian cancer and one brother with colon cancer. Mother with history of diabetes. ALLERGIES: No known drug allergies. MEDICATIONS: Currently the patient is on: 1. Tylenol. 2. Robinson. 3. Zyloprim. 4. Norvasc. 5. Aspirin. 6. Lipitor. 7. Ceftazidime with dialysis. 8. Vitamin D3. 9. Lasix. 10. Hydralazine. 11. Lantus. 12. Humalog. 13. Imdur. 14. Lactulose. 15. Lopressor. 16. Vancomycin, pharmacy to dose. 17. Zofran. 18. Protonix. 19. Piptazobactam. On examination, blood pressure is 101/50 with a pulse of 73, temperature 96.3. She is 93% on 3 L nasal cannula. General description is an elderly female up in the bed in no distress. Patient is afebrile. No tachypnea or respiratory muscles of aspiration use. HEENT: No pallor. No scleral icterus. Oral mucous membrane dry. NECK: Trachea central, no thyromegaly. LUNGS: Unlabored breathing. Clear to auscultation anteriorly. HEART: S1, S2 with regular rate and rhythm. ABDOMEN: Soft, mildly tender. No evidence of any tunnel infection at the PD catheter. EXTREMITIES: No edema of feet. SKIN EXAMINATION: No rash or mass palpable. NEUROLOGICAL: The patient is awake, alert, oriented x3. Mood and affect normal. LABS: Hemoglobin is 12.5, white count 8.1 BUN of 23, creatinine 2.04. Potassium is 5.4, bilirubin slightly elevated. Peritoneal fluid was yellow and cloudy with nucleated cells , the peritoneal fluid culture showing gram-negative bacilli. The patient did have CT of the abdomen and pelvis which did show free fluid no free air, cholelithiasis, nodule left lower lobe, bilateral thickening of the lung bases right renal calculus and no evidence of any obstruction. DIAGNOSTIC IMPRESSION AND PLAN: Patient with PD catheter associated peritonitis with the peritoneal fluid showing a gram-negative could be either Escherichia coli as the patient has mild pain on antibiotic in the recent past and this being her first episode and no evidence of any tunnel infection. PLAN: 1. We will continue the patient on Ceftazidime in her dialysis bag. However, if the blood cultures are negative we will discontinue on Zosyn as well as vancomycin. 2. Depending upon the final ID of this pathogen, we will determine discharge antibiotic. Thank you for this consultation. We will follow this patient along with you. ELA
[2016-12-29 21:08] LABS: Glucose,Whole Blood 178 mg/dL (75-99)
[2016-12-29] MEDS: PYRIDOXINE 50 MG TAB PO SCH (21:13)
[2016-12-29] MEDS: CYANOCOBALAMIN 500 MCG TAB PO SCH (21:13)
[2016-12-29] MEDS: amLODIPine 10 MG TAB PO SCH (21:13)
[2016-12-29] MEDS: INSULIN GLARGINE 100 UNIT/ML 10 ML VIAL SQ SCH (21:17)
[2016-12-30] MEDS: DIALYSIS DEX INTRAPERIT SCH ×4 (00:09→19:09)
[2016-12-30] MEDS: HYDROcodone/APAP 7.5-325MG 1 EACH TAB PO PRN ×4 (00:21→21:20)
[2016-12-30] MEDS: PIPERACILLIN-TAZOBACTAM 3.375 GM in DEXTROSE/WATER 1 50ML.BAG IVPB SCH ×2 (00:21→08:25)
[2016-12-30 02:20] LABS: Glucose,Whole Blood 170 mg/dL (75-99)
[2016-12-30 06:37] LABS: Basophils % (A) 0 %; CH 35.1; CHCM 31.3; Eosinophils # (A) 0.4 k/uL (0-0.7); Eosinophils % (A) 4 %; HCT 36.2 % (34.0-46.0); HDW 3.03; HGB 10.9 gm/dL (11.4-16.0); Hypochromasia Slight; Luc # (Auto) 0.33; Luc % (Auto) 3; Lymphocytes % (A) 10 %; MCH 33.9 pg (25.0-35.0); MCV 112.8 fL (80.0-100.0); Macrocytosis Marked; Mean Platelet Volume 8.9; Monocytes # (A) 0.7 k/uL (0-1.0); Monocytes % (A) 7 %; Neutrophils # (A) 7.7 k/uL (1.3-7.7); Neutrophils % (A) 76 %; RBC 3.21 m/uL (3.80-5.40); RDW 14.8 % (11.5-15.5); WBC 10.2 k/uL (3.8-10.6); WBC (Perox) 10.51
[2016-12-30 06:50] LABS: Calcium 8.3 mg/dL (8.4-10.2); Magnesium 1.7 mg/dL (1.6-2.3); Potassium 4.6 mmol/L (3.5-5.1); Total Protein 5.9 g/dL (6.3-8.2)
[2016-12-30 07:06] LABS: Glucose,Whole Blood 182 mg/dL (75-99)
[2016-12-30] MEDS: INSULIN LISPRO (humaLOG) 300 UNIT/3 ML VIAL SQ SCH ×7 (07:25→20:17)
[2016-12-30] MEDS: PANTOPRAZOLE 40 MG TABLET PO SCH (07:25)
[2016-12-30 07:54] LABS: Large Platelets Present; Polychromasia Present
[2016-12-30 07:58] LABS: Manual Review Performed
[2016-12-30] MEDS: ASPIRIN 81 MG CHEW PO SCH (08:23)
[2016-12-30] MEDS: ALLOPURINOL 100 MG TAB PO SCH (08:23)
[2016-12-30] MEDS: CHOLECALCIFEROL 1,000 UNIT TAB PO SCH ×2 (08:23→20:25)
[2016-12-30] MEDS: ISOSORBIDE MONONITRATE ER 30 MG TAB.ER.24H PO SCH (08:23)
[2016-12-30] MEDS: FUROSEMIDE 80 MG TAB PO SCH ×2 (08:23→20:25)
[2016-12-30] MEDS: ATORVASTATIN 10 MG TAB PO SCH (08:23)
[2016-12-30] MEDS: hydrALAZINE HCL 25 MG TAB PO SCH ×2 (08:24→20:25)
[2016-12-30] MEDS: METOPROLOL TARTRATE 50 MG TAB PO SCH ×2 (08:25→20:26)
--- NOTE | 2016-12-30 09:15 | XR ---
EXAMINATION TYPE: XR chest 1V portable DATE OF EXAM: 12/30/2016 7:01 AM COMPARISON: 08/28/2015 HISTORY: Shortness of breath TECHNIQUE: Single frontal view of the chest is obtained. FINDINGS: Bilateral areas of subsegmental consolidation noted in the heart is enlarged. No pneumotho rax. IMPRESSION: 1. Limited inspiration with subsegmental consolidation correlate for atelectasis versus pneumonia.
[2016-12-30] MEDS: LACTULOSE 20 GM/30 ML CUP PO SCH ×3 (09:22→20:19)
[2016-12-30 12:01] LABS: Glucose,Whole Blood 162 mg/dL (75-99)
[2016-12-30] MEDS: FOLIC ACID-VIT B COMPLEX-VIT C 1 CAP PO SCH (13:05)
--- NOTE | 2016-12-30 14:08 | PN ---
Patient is seen for followup for end-stage renal disease. She is currently maintained on peritoneal dialysis. She was admitted to the hospital with PD peritonitis. Fluid culture grew Klebsiella and patient is being seen by ID and maintained on IV ceftazidime. Her cell count has decreased overall. She states she is feeling better. On examination, blood pressure is 104/55, heart rate 74 per minute. She is afebrile. Examination of the heart, S1 and S2. Examination of the lungs, decreased breath sounds at the bases. Abdomen is soft, nontender. Examination of lower extremities shows no significant edema. TURNING LATHE TENDER exam is grossly intact. ASSESSMENT: 1. End-stage renal disease, on peritoneal dialysis. Continue current peritoneal dialysis exchanges. 2. Chronic obstructive pulmonary disease peritonitis with Klebsiella pneumonia, maintained on ceftazidime being followed by Infectious Disease. Clinically improving with decreasing cell count in the PD fluid. I will repeat another cell count tomorrow. 3. Hypertension, controlled, blood pressure is actually on the lower side. I will hold off on the Norvasc for now. PLAN: Discontinue Norvasc, discontinue IV fluids. Encourage increased oral intake. Hold hydralazine for systolic blood pressure less than 115.
[2016-12-30] MEDS: CIPROFLOXACIN HCL 250 MG TAB PO SCH ×2 (15:49→20:26)
[2016-12-30 16:57] LABS: Glucose,Whole Blood 133 mg/dL (75-99)
--- NOTE | 2016-12-30 17:40 | P.PN ---
Subjective 76-year-old female currently maintained on peritoneal dialysis via cycler comes in to the hospital with the complaint of abdominal pain that is diffuse in nature 3-4 days. Patient states that the pain has progressively gotten worse associated with some difficulty breathing as well. Patient was noted to have diffuse abdominal pain PD catheter insertion site appeared to be normal. Peritoneal fluid was removed for evaluation. With the clinical suspicion for a peritonitis. Patient was started on IV antibiotics and admitted to the hospital. Patient states that she feels better since admission. Denies having any chest pain difficulty breathing nausea vomiting or diarrhea. Patient does make. Denies having any urinary urgency or frequency at this time. Patient has been maintained on peritoneal dialysis for over 8 months and has not had any issues since then. 12/29/2016 Patient states that her abdominal pain is persistent however denies any fevers chills nausea vomiting. Was draining during the time of my evaluation. 12/30/2016 Patient denies having any abdominal pain today. However states that the there are some confusion over then fluid was being changed. Denies any fevers, chills, nausea, vomiting, diarrhea. Objective - Vital Signs Vital signs: Vital Signs Temp 97.5 F L 12/30/16 08:00 Pulse 74 12/30/16 08:00 Resp 16 12/30/16 08:00 BP 104/55 12/30/16 08:00 Pulse Ox 94 L 12/30/16 08:00 Intake & Output 12/29/16 12/30/16 12/30/16 18:59 06:59 18:59 Intake Total 1040 650 90 Balance 1040 650 90 Weight 95.9 kg Intake: IV 400 600 Sodium Chloride 0.9% 1, 400 600 000 ml @ 50 mls/hr IV . Q20H [facility] Rx#:[id number] Intake, IV Titration 300 50 Amount Piperacillin-Tazobactam 3 50 50 .375 gm In Dextrose/Water 1 50ml.bag @ 12.5 mls/hr IVPB Q8HR [facility] Rx#: [id number] Vancomycin 1,000 mg In 250 Sodium Chloride 0.9% 250 ml @ 125 mls/hr IVPB ONCE ONE Rx#:[id number] Oral 340 90 Other: Voiding Method Toilet Toilet Toilet # Voids 2 # Bowel Movements 1 - Exam Gen. appears alert oriented 3 in no distress Lungs good air movement trace crackles on the right base no rhonchi or wheezing Heart S1-S2 heard regular rate and rhythm no murmurs. Abdomen soft nontender no organomegaly catheter site appears normal Lower extremity is no edema noted Neuro exam no focal motor or sensory deficits noted. - Labs CBC & Chem 7: 12/30/16 06:15 12/30/16 06:15 Labs: Abnormal Lab Results - Last 24 Hours (Table) 12/29/16 12/30/16 12/30/16 Range/Units 20:57 02:18 06:15 RBC (3.80-5.40) m/uL Hgb (11.4-16.0) gm/dL MCV (80.0-100.0) fL MCHC (31.0-37.0) g/dL Chloride 96 L (98-107) mmol/L BUN 50 H (7-17) mg/dL Creatinine 4.38 H (0.52-1.04) mg/dL Glucose 154 H (74-99) mg/dL POC Glucose (mg/dL) 178 H 170 H (75-99) mg/dL Calcium 8.3 L (8.4-10.2) mg/dL Total Protein 5.9 L (6.3-8.2) g/dL Albumin 3.1 L (3.5-5.0) g/dL 12/30/16 12/30/16 12/30/16 Range/Units 06:15 07:02 11:55 RBC 3.21 L (3.80-5.40) m/uL Hgb 10.9 L (11.4-16.0) gm/dL MCV 112.8 H (80.0-100.0) fL MCHC 30.0 L (31.0-37.0) g/dL Chloride (98-107) mmol/L BUN (7-17) mg/dL Creatinine (0.52-1.04) mg/dL Glucose (74-99) mg/dL POC Glucose (mg/dL) 182 H 162 H (75-99) mg/dL Calcium (8.4-10.2) mg/dL Total Protein (6.3-8.2) g/dL Albumin (3.5-5.0) g/dL 12/30/16 Range/Units 16:21 RBC (3.80-5.40) m/uL Hgb (11.4-16.0) gm/dL MCV (80.0-100.0) fL MCHC (31.0-37.0) g/dL Chloride (98-107) mmol/L BUN (7-17) mg/dL Creatinine (0.52-1.04) mg/dL Glucose (74-99) mg/dL POC Glucose (mg/dL) 133 H (75-99) mg/dL Calcium (8.4-10.2) mg/dL Total Protein (6.3-8.2) g/dL Albumin (3.5-5.0) g/dL Microbiology - Last 24 Hours (Table) 12/29/16 13:30 Gram Stain - Preliminary Peritoneal Fluid Body Fluid Culture - Preliminary Gram Neg Bacilli 12/28/16 13:20 Gram Stain - Preliminary Peritoneal Fluid Body Fluid Culture - Preliminary Klebsiella pneumoniae 12/28/16 11:30 Urine Culture - Preliminary Urine,Clean Catch Gram Neg Bacilli Assessment and Plan Plan: End-stage renal disease on PD #2 hyperkalemia #3 peritonitis #4 pulmonary nodules bilaterally will need to be followed up as an outpatient #5 history of hypertension #6 history of HF PEF currently stable Plan patient will likely be discharged home on oral ciprofloxacin for 2 weeks.
[2016-12-30] MEDS: CEFTAZIDIME INTRAPERIT SCH (19:09)
[2016-12-30 20:15] LABS: Glucose,Whole Blood 161 mg/dL (75-99)
[2016-12-30] MEDS: INSULIN GLARGINE 100 UNIT/ML 10 ML VIAL SQ SCH (20:25)
[2016-12-30] MEDS: CYANOCOBALAMIN 500 MCG TAB PO SCH (20:25)
[2016-12-30] MEDS: PYRIDOXINE 50 MG TAB PO SCH (20:26)
[2016-12-30] MEDS ORDERED: PIPERACILLIN-TAZOBACTAM 3.375 GM in DEXTROSE/WATER 1 50ML.BAG IVPB SCH (21:00)
[2016-12-31] MEDS: DIALYSIS DEX INTRAPERIT SCH ×4 (00:20→18:03)
[2016-12-31 02:32] LABS: Glucose,Whole Blood 120 mg/dL (75-99)
[2016-12-31] MEDS: HYDROcodone/APAP 7.5-325MG 1 EACH TAB PO PRN ×3 (06:15→14:05)
--- NOTE | 2016-12-31 06:42 | PN ---
DATE OF SERVICE: 12/30/2016 Reason for followup is PD catheter associated peritonitis. INTERVAL HISTORY: The patient is afebrile. She is feeling slightly better. Her abdominal pain has slightly improved and the dialysis fluid is currently clearing out. Denies having any chest pain, shortness of breath or cough and no diarrhea. On examination, blood pressure 121/58 with a pulse of 76, temperature 97.1. She is 93% on 3 L nasal cannula. General description is an elderly female up in the chair in no distress. RESPIRATORY SYSTEM: Unlabored breathing. Clear to auscultation anteriorly. HEART: S1, S2. Regular rate and rhythm. ABDOMEN: Soft. No tenderness. LABS: Hemoglobin 10.9, white count 10.2 with a BUN of 50, creatinine 4.38. The peritoneal culture with Klebsiella pneumoniae which is sensitive pathogen. Urine with E. coli seemed to be resistant. DIAGNOSTIC IMPRESSION AND PLAN: Patient with PD catheter associated peritonitis. The patient's cultures now positive for Klebsiella pneumoniae that is a sensitive pathogen. Patient currently Fortaz in peritoneal dialysis. We will discontinue the vancomycin and Zosyn as the patient was not bacteremic and add p.o. Cipro 250 twice a day, which the patient will continue for another 2 weeks. Plan of care was discussed with the attending physician. ELA
[2016-12-31 07:04] LABS: Calcium 8.1 mg/dL (8.4-10.2); Potassium 4.1 mmol/L (3.5-5.1)
[2016-12-31 07:27] LABS: Glucose,Whole Blood 135 mg/dL (75-99)
[2016-12-31] MEDS: INSULIN LISPRO (humaLOG) 300 UNIT/3 ML VIAL SQ SCH ×7 (07:56→22:16)
[2016-12-31] MEDS: FUROSEMIDE 80 MG TAB PO SCH ×2 (08:03→22:34)
[2016-12-31] MEDS: CHOLECALCIFEROL 1,000 UNIT TAB PO SCH ×2 (08:04→22:11)
[2016-12-31] MEDS: CIPROFLOXACIN HCL 250 MG TAB PO SCH ×2 (08:04→22:11)
[2016-12-31] MEDS: hydrALAZINE HCL 25 MG TAB PO SCH ×2 (08:04→22:12)
[2016-12-31] MEDS: ALLOPURINOL 100 MG TAB PO SCH (08:05)
[2016-12-31] MEDS: ATORVASTATIN 10 MG TAB PO SCH (08:06)
[2016-12-31] MEDS: ASPIRIN 81 MG CHEW PO SCH (08:06)
[2016-12-31] MEDS: ISOSORBIDE MONONITRATE ER 30 MG TAB.ER.24H PO SCH (08:06)
[2016-12-31] MEDS: PANTOPRAZOLE 40 MG TABLET PO SCH (08:06)
[2016-12-31] MEDS: METOPROLOL TARTRATE 50 MG TAB PO SCH ×2 (08:07→22:12)
[2016-12-31] MEDS: LACTULOSE 20 GM/30 ML CUP PO SCH ×3 (08:07→22:19)
[2016-12-31 11:31] LABS: Glucose,Whole Blood 134 mg/dL (75-99)
--- NOTE | 2016-12-31 11:37 | PN ---
DATE OF SERVICE: 12/31/2016 Reason for followup is PD catheter associated peritonitis. INTERVAL HISTORY: The patient is afebrile. Her abdominal pain has slightly improved. Patient denies having any chest pain or shortness of breath or cough. On examination, blood pressure 118/60 with a pulse of 84, temperature 97.9, she is 95% on 2 L nasal cannula. General description is an elderly female, up in the bed in no distress. RESPIRATORY SYSTEM: Unlabored breathing. Clear to auscultation anteriorly. HEART: S1, S2, regular rate and rhythm. ABDOMEN: Soft. No tenderness. LABS: Peritoneal fluid culture with Klebsiella pneumoniae. DIAGNOSTIC IMPRESSION AND PLAN: Patient with Klebsiella pneumoniae, peritoneal dialysis catheter associated peritonitis. Patient did show clinical improvement. Plan to finish therapy with the p.o. Cipro b.i.d. for another 2 weeks. Continue supportive care.
[2016-12-31] MEDS: FOLIC ACID-VIT B COMPLEX-VIT C 1 CAP PO SCH (12:58)
--- NOTE | 2016-12-31 15:42 | CDI ---
In responding to this query, please exercise your independent professional judgment. The [facility] Coding Staff and Clinical Documentation Specialists appreciate your assistance in clarifying documentation, maintaining compliance with coding guidelines, accurately documenting patients condition and capturing severity of illness. The fact that a question is asked does not imply that any particular answer is desired or expected. Communication forms are a method of clarifying documentation and are not made part of the Legal Health Record. Thank you in advance for your clarification. Last Revision, August 2015 Louis Lopez [address] [place] [address] Documentation Clarification Form Date: 12/31/2016 3:26:00 PM From: Annie Snow Admit Date: 12/28/2016 6:31:00 AM Patient Name: Gayle Carnes Visit Number: [id number] Discharge Date: Dr. True Pride Peritoneal dialysis catheter associated peritonitis documented per ID Patient history/risk factors: End stage renal disease, Heart failure, Diabetes mellitus, Hypertension, Clinical Indicators: Complains of abdominal pain x 2 days with some nausea and dry heaves. She in peritoneal dialysis and did have cloudy dialysate prior to admission Lab findings: Peritoneal fluid culture with Klebsiella pneumoniae Vital Signs: 154/73 104 20 99.2 92 % RA Treatment: Vancomycin IV (change to Cipro PO) Peritoneal dialysis ( per Nephrology orders) Monitor Labs Consults: ID: Patient with Klebsiella pneumonia peritoneal dialysis catheter associated peritonitis In your professional opinion, can you please clarify Peritonitis? Peritoneal dialysis catheter associated Peritonitis (further specify cause) Unable to determine Please document in your progress notes and discharge summary in order to capture severity of illness and risk of mortality. Include clinical findings that support your diagnosis. FYI: Press F11 to launch patient chart. Place X here if this finding has no clinical significance, is not applicable or if you are not able to provide any additional documentation. ELA
[2016-12-31 16:45] LABS: Glucose,Whole Blood 98 mg/dL (75-99)
[2016-12-31] MEDS: CEFTAZIDIME INTRAPERIT SCH (18:03)
--- NOTE | 2016-12-31 19:09 | P.PN ---
Subjective 76-year-old female currently maintained on peritoneal dialysis via cycler comes in to the hospital with the complaint of abdominal pain that is diffuse in nature 3-4 days. Patient states that the pain has progressively gotten worse associated with some difficulty breathing as well. Patient was noted to have diffuse abdominal pain PD catheter insertion site appeared to be normal. Peritoneal fluid was removed for evaluation. With the clinical suspicion for a peritonitis. Patient was started on IV antibiotics and admitted to the hospital. Patient states that she feels better since admission. Denies having any chest pain difficulty breathing nausea vomiting or diarrhea. Patient does make. Denies having any urinary urgency or frequency at this time. Patient has been maintained on peritoneal dialysis for over 8 months and has not had any issues since then. 12/29/2016 Patient states that her abdominal pain is persistent however denies any fevers chills nausea vomiting. Was draining during the time of my evaluation. 12/30/2016 Patient denies having any abdominal pain today. However states that the there are some confusion over then fluid was being changed. Denies any fevers, chills, nausea, vomiting, diarrhea. 12/31/16 No new overnight events states her abd pain is significantly improved. Objective - Vital Signs Vital signs: Vital Signs Temp 97.4 F L 12/31/16 13:38 Pulse 71 12/31/16 18:10 Resp 16 12/31/16 18:10 BP 135/75 12/31/16 18:10 Pulse Ox 96 12/31/16 18:10 Intake & Output 12/31/16 12/31/16 01/01/17 06:59 18:59 06:59 Intake Total 400 1320 Balance 400 1320 Weight 99.8 kg Intake: IV 400 Sodium Chloride 0.9% 1, 400 000 ml @ 50 mls/hr IV . Q20H [facility] Rx#:[id number] Oral 1320 Other: Voiding Method Toilet # Voids 1 1 - Exam Gen. appears alert oriented 3 in no distress Lungs good air movement trace crackles on the right base no rhonchi or wheezing Heart S1-S2 heard regular rate and rhythm no murmurs. Abdomen soft nontender no organomegaly catheter site appears normal Lower extremity is no edema noted Neuro exam no focal motor or sensory deficits noted. - Labs CBC & Chem 7: 12/30/16 06:15 12/31/16 06:36 Labs: Abnormal Lab Results - Last 24 Hours (Table) 12/30/16 12/31/16 12/31/16 Range/Units 20:15 02:30 06:36 Sodium 135 L (137-145) mmol/L Chloride 97 L (98-107) mmol/L BUN 51 H (7-17) mg/dL Creatinine 4.40 H (0.52-1.04) mg/dL Glucose 122 H (74-99) mg/dL POC Glucose (mg/dL) 161 H 120 H (75-99) mg/dL Calcium 8.1 L (8.4-10.2) mg/dL 12/31/16 12/31/16 Range/Units 07:23 11:27 Sodium (137-145) mmol/L Chloride (98-107) mmol/L BUN (7-17) mg/dL Creatinine (0.52-1.04) mg/dL Glucose (74-99) mg/dL POC Glucose (mg/dL) 135 H 134 H (75-99) mg/dL Calcium (8.4-10.2) mg/dL Microbiology - Last 24 Hours (Table) 12/29/16 13:30 Gram Stain - Final Peritoneal Fluid Body Fluid Culture - Final Klebsiella pneumoniae 12/28/16 13:20 Gram Stain - Final Peritoneal Fluid Body Fluid Culture - Final Klebsiella pneumoniae 12/28/16 11:30 Urine Culture - Final Urine,Clean Catch Escherichia coli Assessment and Plan Plan: End-stage renal disease on PD #2 hyperkalemia #3 peritonitis, catheter related #4 pulmonary nodules bilaterally will need to be followed up as an outpatient #5 history of hypertension #6 history of HF PEF currently stable Plan patient will likely be discharged home on oral ciprofloxacin for 2 weeks. D/c home await cell count taken from today's exchange
[2016-12-31 20:27] LABS: RBC, Body Fluid 35 /uL
--- NOTE | 2016-12-31 20:49 | PN ---
Patient is seen for followup for end-stage renal disease. She was admitted to the hospital with abdominal pain and found to have CAPD peritonitis. PD fluid grew klebsiella. Patient is maintained on IV Fortaz. On examination, blood pressure 123/75, heart rate 62 per minute. She is afebrile. EXAMINATION OF THE HEART: S1 and S2. EXAMINATION OF THE LUNGS: Bilateral breath sounds are heard. ABDOMEN: Soft, nontender. Examination of lower extremities shows edema 1+ bilaterally. ENROLLED AGENT exam is grossly intact. Labs show potassium 4.1, sodium 135. ASSESSMENT: 1. End-stage renal disease, on peritoneal dialysis. Continue current peritoneal dialysis exchanges. 2. Mild volume overload. Discontinue the IV fluids. Continue with p.o. Lasix. May continue with current PD exchanges. Will increase to 2.5%, depending on volume status tomorrow. Patient is encouraged to increase oral intake. 3. Klebsiella pneumoniae peritonitis, maintained on Fortaz. Repeat fluid cell count today. Clinically patient is significantly improving. PLAN: Check PD fluid cell count from today. Continue the antibiotics intraperitoneally.
[2016-12-31 21:36] LABS: Glucose,Whole Blood 144 mg/dL (75-99)
[2016-12-31] MEDS: PYRIDOXINE 50 MG TAB PO SCH (22:11)
[2016-12-31] MEDS: CYANOCOBALAMIN 500 MCG TAB PO SCH (22:12)
[2016-12-31] MEDS: INSULIN GLARGINE 100 UNIT/ML 10 ML VIAL SQ SCH (22:16)
[2017-01-01] MEDS: DIALYSIS DEX INTRAPERIT SCH ×2 (00:26→05:55)
[2017-01-01 02:21] LABS: Glucose,Whole Blood 150 mg/dL (75-99)
[2017-01-01] MEDS: HYDROcodone/APAP 7.5-325MG 1 EACH TAB PO PRN ×2 (06:04→12:04)
[2017-01-01 07:32] LABS: Glucose,Whole Blood 134 mg/dL (75-99)
[2017-01-01 07:42] LABS: Calcium 8.6 mg/dL (8.4-10.2); Potassium 3.9 mmol/L (3.5-5.1)
[2017-01-01] MEDS: CIPROFLOXACIN HCL 250 MG TAB PO SCH (07:49)
[2017-01-01] MEDS: ASPIRIN 81 MG CHEW PO SCH (07:49)
[2017-01-01] MEDS: CHOLECALCIFEROL 1,000 UNIT TAB PO SCH (07:49)
[2017-01-01] MEDS: PANTOPRAZOLE 40 MG TABLET PO SCH (07:49)
[2017-01-01] MEDS: hydrALAZINE HCL 25 MG TAB PO SCH (07:49)
[2017-01-01] MEDS: METOPROLOL TARTRATE 50 MG TAB PO SCH (07:49)
[2017-01-01] MEDS: ALLOPURINOL 100 MG TAB PO SCH (07:50)
[2017-01-01] MEDS: FUROSEMIDE 80 MG TAB PO SCH (07:50)
[2017-01-01] MEDS: ISOSORBIDE MONONITRATE ER 30 MG TAB.ER.24H PO SCH (07:50)
[2017-01-01] MEDS: LACTULOSE 20 GM/30 ML CUP PO SCH (07:51)
[2017-01-01] MEDS: ATORVASTATIN 10 MG TAB PO SCH (07:51)
[2017-01-01] MEDS: FOLIC ACID-VIT B COMPLEX-VIT C 1 CAP PO SCH (07:52)
[2017-01-01] MEDS: INSULIN LISPRO (humaLOG) 300 UNIT/3 ML VIAL SQ SCH ×4 (07:52→12:06)
[2017-01-01 08:10] VITALS: TEMP 98.7
[2017-01-01 11:48] LABS: Glucose,Whole Blood 139 mg/dL (75-99)
[2017-01-01] MEDS ORDERED: DIALYSIS (PERITONL) DEX 4.25% 2,500 ML INTRAPERIT ONE (12:00)
[2017-01-01] MEDS ORDERED: DIALYSIS (PERITONL) DEX 4.25% 2,500 ML INTRAPERIT SCH (12:00)
[2017-01-01 12:08] VITALS: BP 128/70; PULSE 67; RESP 14
--- NOTE | 2017-01-01 16:13 | PN ---
Patient is seen for follow-up for end-stage renal disease. She was admitted to the hospital with abdominal pain and CAPD peritonitis. CAPD peritonitis fluid cultures grew Klebsiella and patient is maintained on Fortaz intraperitoneally. She also had Escherichia coli urinary tract infection for which she is on Cipro. Patient currently feels significantly improved. However, she appears to be mildly short of breath and appears to be volume overloaded. On examination, blood pressure is 134/68, heart rate 81 per minute. She is afebrile. Examination of the heart S1 and S2. Examination of the lungs: Bilateral breath sounds are heard. Abdomen is soft, nontender, obese. Examination of lower extremity edema 2+ bilaterally. Labs show potassium 3.9, sodium 137. ASSESSMENT: 1. End-stage renal disease, on peritoneal dialysis. 2. Volume overload. Will plan for a 4.25% exchange for the next dialysis. Patient is advised to use 2.5% solution at home if she is discharged today. 3. CAPD peritonitis. The patient will be maintained on intraperitoneal Fortaz and she will complete her oral course of Cipro for the urinary tract infection.
--- NOTE | 2017-01-01 17:07 | PN ---
DATE OF SERVICE: 01/01/2017 Reason for follow-up: Klebsiella PD catheter associated peritonitis. INTERVAL HISTORY: The patient is afebrile. She is feeling better. Her abdominal pain has improved. The patient denies having any chest pain or shortness of breath. No cough. On examination, blood pressure 128/70 with a pulse of 57, temperature 98.7, she is 95% on 3 L nasal cannula. General description is an elderly female up in the bed in no distress. RESPIRATORY SYSTEM: Unlabored breathing. Clear to auscultation anteriorly. HEART: S1, S2. Regular rate and rhythm. ABDOMEN: Soft, no tenderness. LABS: BUN of 48, creatinine .42.3. DIAGNOSTIC IMPRESSION AND PLAN: Patient with Klebsiella, PD catheter associated peritonitis. Plan is to finish therapy with p.o. Cipro 500 daily for another 2 weeks with close outpatient follow-up. ELA
--- NOTE | 2017-01-01 17:55 | P.DS ---
Providers Date of admission: 12/28/16 06:31 Attending physician: Oz Paul Consults: 12/29/16 08:44 Consult Physician Routine Consulting Provider: Cathy Brooks Consult Reason/Comments: Peritonitis Do you want consulting provider notified?: Yes Primary care physician: Jose Juan Seay Hospital Course: 76-year-old female currently maintained on peritoneal dialysis via cycler comes in to the hospital with the complaint of abdominal pain that is diffuse in nature 3-4 days. Patient states that the pain has progressively gotten worse associated with some difficulty breathing as well. Patient was noted to have diffuse abdominal pain PD catheter insertion site appeared to be normal. Peritoneal fluid was removed for evaluation. With the clinical suspicion for a peritonitis. Patient was started on IV antibiotics and admitted to the hospital. Patient states that she feels better since admission. Denies having any chest pain difficulty breathing nausea vomiting or diarrhea. Patient does make. Denies having any urinary urgency or frequency at this time. Patient has been maintained on peritoneal dialysis for over 8 months and has not had any issues since then. 12/29/2016 Patient states that her abdominal pain is persistent however denies any fevers chills nausea vomiting. Was draining during the time of my evaluation. 12/30/2016 Patient denies having any abdominal pain today. However states that the there are some confusion over then fluid was being changed. Denies any fevers, chills, nausea, vomiting, diarrhea. 12/31/16 No new overnight events states her abd pain is significantly improved. Objective - Vital Signs Vital signs: Vital Signs Temp 97.4 F L 12/31/16 13:38 Pulse 71 12/31/16 18:10 Resp 16 12/31/16 18:10 BP 135/75 12/31/16 18:10 Pulse Ox 96 12/31/16 18:10 Intake & Output 12/31/16 12/31/16 01/01/17 06:59 18:59 06:59 Intake Total 400 1320 Balance 400 1320 Weight 99.8 kg Intake: IV 400 Sodium Chloride 0.9% 1, 400 000 ml @ 50 mls/hr IV . Q20H [facility] Rx#:[id number] Oral 1320 Other: Voiding Method Toilet # Voids 1 1 - Exam Gen. appears alert oriented 3 in no distress Lungs good air movement trace crackles on the right base no rhonchi or wheezing Heart S1-S2 heard regular rate and rhythm no murmurs. Abdomen soft nontender no organomegaly catheter site appears normal Lower extremity is no edema noted Neuro exam no focal motor or sensory deficits noted. - Labs CBC & Chem 7: 12/30/16 06:15 12/31/16 06:36 Labs: Abnormal Lab Results - Last 24 Hours (Table) 12/30/16 12/31/16 12/31/16 Range/Units 20:15 02:30 06:36 Sodium 135 L (137-145) mmol/L Chloride 97 L (98-107) mmol/L BUN 51 H (7-17) mg/dL Creatinine 4.40 H (0.52-1.04) mg/dL Glucose 122 H (74-99) mg/dL POC Glucose (mg/dL) 161 H 120 H (75-99) mg/dL Calcium 8.1 L (8.4-10.2) mg/dL 12/31/16 12/31/16 Range/Units 07:23 11:27 Sodium (137-145) mmol/L Chloride (98-107) mmol/L BUN (7-17) mg/dL Creatinine (0.52-1.04) mg/dL Glucose (74-99) mg/dL POC Glucose (mg/dL) 135 H 134 H (75-99) mg/dL Calcium (8.4-10.2) mg/dL Microbiology - Last 24 Hours (Table) 12/29/16 13:30 Gram Stain - Final Peritoneal Fluid Body Fluid Culture - Final Klebsiella pneumoniae 12/28/16 13:20 Gram Stain - Final Peritoneal Fluid Body Fluid Culture - Final Klebsiella pneumoniae 12/28/16 11:30 Urine Culture - Final Urine,Clean Catch Escherichia coli Assessment and Plan Plan: End-stage renal disease on PD #2 hyperkalemia #3 peritonitis, catheter related #4 pulmonary nodules bilaterally will need to be followed up as an outpatient #5 history of hypertension #6 history of HF PEF currently stable patient's cell counts were noted. Patient will be given prescription for narcotics and ciprofloxacin 250 mg by mouth twice a day for 14 days. Patient is to follow-up with Dr. Cornelio lambert. Patient's WBC count in the patient continue fluid is significantly decreased. Patient's symptoms also improved. Patient Condition at Discharge: Stable Plan - Discharge Summary New Discharge Prescriptions: Ciprofloxacin HCl [Cipro] 250 mg PO BID #28 tab HYDROcodone/APAP 5-325MG [[place]th[place] 5-325] 1 tab PO Q6HR PRN #40 tab PRN Reason: Pain Discharge Medication List Aspirin 81 mg PO DAILY 08/24/15 [History] Cholecalciferol [Vitamin D3] 1,000 unit PO BID 08/24/15 [History] Lovastatin [Mevacor] 10 mg PO DAILY 08/24/15 [History] Metoprolol Tartrate [Lopressor] 50 mg PO BID 08/24/15 [History] amLODIPine [Norvasc] 5 mg PO HS 08/24/15 [History] hydrALAZINE HCL [Apresoline] 25 mg PO BID #60 tab 09/01/15 [Rx] Allopurinol [Zyloprim] 100 mg PO DAILY 11/27/15 [History] Cyanocobalamin [Vitamin B-12] 1,000 mcg PO HS 11/27/15 [History] Insulin Glargine [Lantus] 50 unit SQ HS 11/27/15 [History] Pyridoxine [Vitamin B-6] 100 mg PO HS 11/27/15 [History] Furosemide [Lasix] 80 mg PO Q12HR #60 tablet 12/02/15 [Rx] Acetaminophen [Tylenol] 1,000 mg PO BID PRN 02/06/16 [History] Insulin Aspart [NovoLOG] 10 unit SQ TID-W/MEALS 02/06/16 [History] Insulin Aspart [NovoLOG] See Protocol SQ TID-W/MEALS 02/06/16 [History] Isosorbide Mononitrate ER [Imdur] 30 mg PO QAM 02/06/16 [History] Omeprazole 40 mg PO AC-BRKFST 02/06/16 [History] Ciprofloxacin HCl [Cipro] 250 mg PO BID #28 tab 01/01/17 [Rx] HYDROcodone/APAP 5-325MG [E[place]tham 5-325] 1 tab PO Q6HR PRN #40 tab 01/01/17 [Rx] Follow up Appointment(s)/Referral(s): Makeda Grimes MD [STAFF PHYSICIAN] - 1 Week (Please call office to make follow-up appointment.) Jose Juan Seay MD [Primary Care Provider] - 01/08/17 11:30 am Cathy Brooks MD [STAFF PHYSICIAN] - 01/09/17 10:45 am Patient Instructions/Handouts: Peritonitis (DC) Activity/Diet/Wound Care/Special Instructions: Activity as tolerated resume diet as tolerated dialysis as ordered Discharge Disposition: HOME SELF-CARE
== END 2017-01-01 15:38 | disposition home or self-care (01) | DRG 919 ==
LOC: EC 03:18 → 6SEL 06:31 → 3SUR 12-30 21:01
PROVIDERS: ADMIT Hospitalist; ATTEND Hospitalist
DX: T85.71XA Infection and inflammatory reaction due to peritoneal dialysis catheter, initial encounter (principal); N18.6 End stage renal disease; K65.9 Peritonitis, unspecified; I13.2 Hypertensive heart and chronic kidney disease with heart failure and with stage 5 chronic kidney disease, or end stage renal disease; E87.2 Acidosis; I50.32 Chronic diastolic (congestive) heart failure; E11.22 Type 2 diabetes mellitus with diabetic chronic kidney disease; N39.0 Urinary tract infection, site not specified; E87.5 Hyperkalemia; E87.70 Fluid overload, unspecified; R91.8 Other nonspecific abnormal finding of lung field; B96.20 Unspecified Escherichia coli [E. coli] as the cause of diseases classified elsewhere; I34.0 Nonrheumatic mitral (valve) insufficiency; B96.1 Klebsiella pneumoniae [K. pneumoniae] as the cause of diseases classified elsewhere; D64.9 Anemia, unspecified; E78.5 Hyperlipidemia, unspecified; K57.90 Diverticulosis of intestine, part unspecified, without perforation or abscess without bleeding; M19.90 Unspecified osteoarthritis, unspecified site; M48.00 Spinal stenosis, site unspecified; H54.41 Blindness, right eye, normal vision left eye; E55.9 Vitamin D deficiency, unspecified; M54.9 Dorsalgia, unspecified; R05 Cough; R11.0 Nausea; G89.29 Other chronic pain; I25.2 Old myocardial infarction; Z80.0 Family history of malignant neoplasm of digestive organs; Z80.41 Family history of malignant neoplasm of ovary; Z83.3 Family history of diabetes mellitus; Z79.82 Long term (current) use of aspirin; Z79.899 Other long term (current) drug therapy; Z79.4 Long term (current) use of insulin; Z99.2 Dependence on renal dialysis; Z87.81 Personal history of (healed) traumatic fracture; Z86.010 Personal history of colon polyps; Z87.19 Personal history of other diseases of the digestive system; Z87.440 Personal history of urinary (tract) infections; Z98.42 Cataract extraction status, left eye; Z86.19 Personal history of other infectious and parasitic diseases; Y84.1 Kidney dialysis as the cause of abnormal reaction of the patient, or of later complication, without mention of misadventure at the time of the procedure
CPT/HCPCS: 36415; 71010; 74020; 74176; 80048; 80053; 80202; 81001; 82009; 82150; 83036; 83605; 83690; 83735; 84100; 85025; 85610; 85730; 87040; 87070; 87077; 87086; 87186; 87205; 89050; 94760; 96361; 96365; 96375; 99285

== ENCOUNTER 2017-01-02 23:47 | Inpatient (IN) | payer MEDICARE, BC ==
[2017-01-03] MEDS ORDERED: ONDANSETRON 4 MG/2 ML VIAL IVP STA (00:15)
[2017-01-03] MEDS ORDERED: HYDROmorphone 1 MG/ML 1 ML SYRINGE IVP STA (00:15)
[2017-01-03] MEDS ORDERED: SODIUM CHLORIDE 0.9% 500 ML IV STA (00:15)
[2017-01-03] MEDS ORDERED: KETOROLAC 60 MG/2 ML VIAL IVP STA (00:16)
[2017-01-03] MEDS ORDERED: PIPERACILLIN-TAZOBACTAM 3.375 GM in DEXTROSE/WATER 1 50ML.BAG IVPB STA (00:20)
--- NOTE | 2017-01-03 00:22 | ED ---
General Adult HPI - General Chief complaint: Abdominal Pain Stated complaint: Abd Pain Time Seen by Provider: 01/03/17 00:00 Source: patient, RN notes reviewed Mode of arrival: wheelchair Limitations: no limitations - History of Present Illness Initial comments: This is a 76-year-old female who presents emergency Department complaining of abdominal pain. Patient states she's been in the hospital since Friday and was released yesterday. Patient states she was diagnosed with peritonitis. Patient states she was on antibiotics while in the hospital and then went home on oral antibiotics. Patient states she has not gotten any better. Patient states the pain is actually little bit worse today. Patient is mildly nauseated but has not vomited. Patient states she is having normal bowel movements. Patient denies any fever or chills per patient denies chest pain difficulty breathing or shortness of breath. Patient denies any lightheadedness dizziness or near syncopal episode. - Related Data Home Medications Medication Instructions Recorded Confirmed Aspirin 81 mg PO DAILY 08/24/15 12/28/16 Cholecalciferol [Vitamin D3] 1,000 unit PO BID 08/24/15 12/28/16 Lovastatin [Mevacor] 10 mg PO DAILY 08/24/15 12/28/16 Metoprolol Tartrate [Lopressor] 50 mg PO BID 08/24/15 12/28/16 amLODIPine [Norvasc] 5 mg PO HS 08/24/15 12/28/16 Allopurinol [Zyloprim] 100 mg PO DAILY 11/27/15 12/28/16 Cyanocobalamin [Vitamin B-12] 1,000 mcg PO HS 11/27/15 12/28/16 Insulin Glargine [Lantus] 50 unit SQ HS 11/27/15 12/28/16 Pyridoxine [Vitamin B-6] 100 mg PO HS 11/27/15 12/28/16 Acetaminophen [Tylenol] 1,000 mg PO BID PRN 02/06/16 12/28/16 Insulin Aspart [NovoLOG] 10 unit SQ TID-W/MEALS 02/06/16 12/28/16 Insulin Aspart [NovoLOG] See Protocol SQ TID-W/MEALS 02/06/16 12/28/16 Isosorbide Mononitrate ER [Imdur] 30 mg PO QAM 02/06/16 12/28/16 Omeprazole 40 mg PO AC-BRKFST 02/06/16 12/28/16 Previous Rx's Medication Instructions Recorded hydrALAZINE HCL [Apresoline] 25 mg PO BID #60 tab 09/01/15 Furosemide [Lasix] 80 mg PO Q12HR #60 tablet 12/02/15 Ciprofloxacin HCl [Cipro] 250 mg PO BID #28 tab 01/01/17 HYDROcodone/APAP 5-325MG [[place] 1 tab PO Q6HR PRN #40 tab 01/01/17 5-325] Allergies Allergy/AdvReac Type Severity Reaction Status Date / Time No Known Allergies Allergy Verified 12/28/16 11:24 Review of Systems ROS Statement: Those systems with pertinent positive or pertinent negative responses have been documented in the HPI. ROS Other: All systems not noted in ROS Statement are negative. Past Medical History Past Medical History: Heart Failure, Diabetes Mellitus, Hyperlipidemia, Hypertension, Myocardial Infarction ([place]), Renal Disease Additional Past Medical History / Comment(s): ,11/27/15 Pt is a transfer from [facility] to [facility] for CHF, renal failure. Pt presented today to [facility] with MAYRA x 5 days and getting worse. She has a dry cough. 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 Peritonitis Last Myocardial Infarction Date:: unkn- 30 or more yrs ago per EKG History of Any Multi-Drug Resistant Organisms: None Reported Past Surgical History: Back Surgery, Orthopedic Surgery Additional Past Surgical History / Comment(s): 08/31/15 EGD with bx and colonoscopy with ulcerative polyp, right shoulder surgery - humerus ORIF, left ankle ORIF, low back surgery, multiple pain procedures, L cataract removal, R knee arthroscopy. Past Anesthesia/Blood Transfusion Reactions: No Reported Reaction Additional Past Anesthesia/Blood Transfusion Reaction / Comment(s): Pt states she has received blood in the past without reaction. Past Psychological History: No Psychological Hx Reported Additional Psychological History / Comment(s): Pt resides with her spouse. She is independent. She does not use any assistive device. She drives. Smoking Status: Never smoker Past Alcohol Use History: None Reported Past Drug Use History: None Reported - Past Family History Sister(s) Family Medical History: Cancer Additional Family Medical History / Comment(s): Ovarian cancer Brother(s) Family Medical History: Cancer Additional Family Medical History / Comment(s): colon Mother Family Medical History: Diabetes Mellitus Additional Family Medical History / Comment(s): Mother in her 80's Father History Unknown: Yes Additional Family Medical History / Comment(s): Father had a bowel obstruction. He at 84 yrs. General Exam - General Exam Comments Initial Comments: GENERAL: Patient is well-developed and well-nourished. Patient is nontoxic and well- hydrated and is in moderate distress. ENT: Neck is soft and supple. No significant lymphadenopathy is noted. Oropharynx is clear. Moist mucous membranes. Neck has full range of motion without eliciting any pain. EYES: The sclera were anicteric and conjunctiva were pink and moist. Extraocular movements were intact and pupils were equal round and reactive to light. Eyelids were unremarkable. PULMONARY: Unlabored respirations. Good breath sounds bilaterally. No audible rales rhonchi or wheezing was noted. CARDIOVASCULAR: There is a regular rate and rhythm without any murmurs gallops or rubs. ABDOMEN: Abdomen is diffusely tender and moderately distended SKIN: Skin is clear with no lesions or rashes and otherwise unremarkable. NEUROLOGIC: Patient is alert and oriented x3. Cranial nerves II through XII are grossly intact. Motor and sensory are also intact. Normal speech, volume and content. Symmetrical smile. MUSCULOSKELETAL: Normal extremities with adequate strength and full range of motion. No lower extremity swelling or edema. No calf tenderness. LYMPHATICS: No significant lymphadenopathy is noted PSYCHIATRIC: Normal psychiatric evaluation. Normal interpersonal interactions appears functionally intact in deals appropriately with others. No signs of depression. No signs of anxiety. Limitations: no limitations Course Vital Signs 01/02/17 01/03/17 01/03/17 23:57 00:23 00:46 Temperature 98.1 F 99.5 F Pulse Rate 94 85 Respiratory 20 18 Rate Blood Pressure 122/63 101/62 O2 Sat by Pulse 95 95 Oximetry Medical Decision Making - Medical Decision Making I started the patient on Rocephin and Zosyn because the urine culture as well as the body fluid culture were susceptible to these antibiotics - Lab Data Result diagrams: 01/03/17 00:35 01/03/17 00:35 Lab Results 01/03/17 01/03/17 01/03/17 Range/Units 00:35 00:35 00:35 WBC 11.5 H (3.8-10.6) k/uL RBC 3.26 L (3.80-5.40) m/uL Hgb 11.1 L (11.4-16.0) gm/dL Hct 35.0 (34.0-46.0) % MCV 107.5 H D (80.0-100.0) fL MCH 34.1 (25.0-35.0) pg MCHC 31.7 (31.0-37.0) g/dL RDW 14.8 (11.5-15.5) % Plt Count 272 (150-450) k/uL Neutrophils % 83 % Lymphocytes % 6 % Monocytes % 7 % Eosinophils % 1 % Basophils % 0 % Neutrophils # 9.6 H (1.3-7.7) k/uL Lymphocytes # 0.7 L (1.0-4.8) k/uL Monocytes # 0.9 (0-1.0) k/uL Eosinophils # 0.1 (0-0.7) k/uL Basophils # 0.0 (0-0.2) k/uL Macrocytosis Moderate Sodium 138 (137-145) mmol/L Potassium 3.2 L (3.5-5.1) mmol/L Chloride 97 L (98-107) mmol/L Carbon Dioxide 27 (22-30) mmol/L Anion Gap 14 mmol/L BUN 43 H (7-17) mg/dL Creatinine 3.10 H (0.52-1.04) mg/dL Est GFR (MDRD) Af Amer 18 (>60 ml/min/1.73 sqM) Est GFR (MDRD) Non-Af 15 (>60 ml/min/1.73 sqM) Glucose 129 H (74-99) mg/dL Plasma Lactic Acid [place] 1.5 (0.7-2.0) mmol/L Calcium 8.5 (8.4-10.2) mg/dL Total Bilirubin 0.4 (0.2-1.3) mg/dL AST 20 (14-36) U/L ALT 36 (9-52) U/L Alkaline Phosphatase 128 H (38-126) U/L Total Protein 5.4 L (6.3-8.2) g/dL Albumin 2.9 L (3.5-5.0) g/dL Amylase 50 (30-110) U/L Lipase 191 (23-300) U/L Critical Care Time Critical Care Time: Yes Total Critical Care Time: 35 Disposition Clinical Impression: Peritonitis associated with peritoneal dialysis Disposition: ADMITTED IP TO THIS HOSP Referrals: Jose Juan Seay MD [Primary Care Provider] - 1-2 days Time of Disposition: 02:08
[2017-01-03 00:58] LABS: Calcium 8.5 mg/dL (8.4-10.2); Potassium 3.2 mmol/L (3.5-5.1); Total Bilirubin 0.4 mg/dL (0.2-1.3); Total Protein 5.4 g/dL (6.3-8.2)
[2017-01-03 01:29] LABS: Basophils % (A) 0 %; CH 35.7; CHCM 33.4; Eosinophils # (A) 0.1 k/uL (0-0.7); Eosinophils % (A) 1 %; HDW 3.01; HGB 11.1 gm/dL (11.4-16.0); Luc # (Auto) 0.23; Luc % (Auto) 2; Lymphocytes # (A) 0.7 k/uL (1.0-4.8); Lymphocytes % (A) 6 %; MCH 34.1 pg (25.0-35.0); MCHC 31.7 g/dL (31.0-37.0); Macrocytosis Moderate; Mean Platelet Volume 8.5; Monocytes # (A) 0.9 k/uL (0-1.0); Monocytes % (A) 7 %; Neutrophils # (A) 9.6 k/uL (1.3-7.7); Neutrophils % (A) 83 %; RBC 3.26 m/uL (3.80-5.40); RDW 14.8 % (11.5-15.5); WBC 11.5 k/uL (3.8-10.6)
[2017-01-03 01:32] LABS: MCV 107.5 fL (80.0-100.0)
[2017-01-03] MEDS ORDERED: SODIUM CHLORIDE 0.9% 1,000 ML IV ONE (02:10)
[2017-01-03] MEDS ORDERED: ONDANSETRON 4 MG/2 ML VIAL IVP PRN (02:13)
[2017-01-03 02:55] LABS: Glucose,Whole Blood 77 mg/dL (75-99)
[2017-01-03] MEDS ORDERED: Potassium Replacement Protocol 1 EACH MISC MISCELLANE PRN ×2 (03:18→06:07)
[2017-01-03] MEDS: HYDROmorphone 1 MG/ML 1 ML SYRINGE IVP PRN ×3 (03:24→18:10)
[2017-01-03 03:30] LABS: RBC, Body Fluid 36 /uL
[2017-01-03] MEDS ORDERED: POTASSIUM CHLORIDE ER 20 MEQ TAB.ER PO SCH ×2 (04:00→07:00)
[2017-01-03] MEDS ORDERED: Magnesium Replacement Protocol 1 EACH MISC MISCELLANE PRN (04:54)
[2017-01-03 05:27] LABS: Magnesium 1.3 mg/dL (1.6-2.3); Total Bilirubin 0.3 mg/dL (0.2-1.3); Total Protein 4.8 g/dL (6.3-8.2)
[2017-01-03] MEDS: MAGNESIUM SULFATE-D5W PMX 1 GM in DEXTROSE/WATER 1 100ML.BAG IVPB SCH ×4 (05:46→18:00)
[2017-01-03 05:49] LABS: Basophils % (A) 0 %; CH 35.3; CHCM 32.1; Eosinophils # (A) 0.2 k/uL (0-0.7); Eosinophils % (A) 2 %; HCT 30.7 % (34.0-46.0); HDW 2.99; HGB 9.7 gm/dL (11.4-16.0); Hypochromasia Slight; Luc # (Auto) 0.25; Luc % (Auto) 3; Lymphocytes # (A) 0.8 k/uL (1.0-4.8); Lymphocytes % (A) 8 %; MCH 34.8 pg (25.0-35.0); MCHC 31.5 g/dL (31.0-37.0); MCV 110.4 fL (80.0-100.0); Macrocytosis Marked; Mean Platelet Volume 7.9; Monocytes # (A) 0.6 k/uL (0-1.0); Monocytes % (A) 6 %; Neutrophils # (A) 7.9 k/uL (1.3-7.7); Neutrophils % (A) 81 %; RBC 2.78 m/uL (3.80-5.40); RDW 14.9 % (11.5-15.5); WBC 9.8 k/uL (3.8-10.6); WBC (Perox) 10.34
[2017-01-03] MEDS ORDERED: DIALYSIS (PERITONEAL) DEX 1.5% 2,500 ML INTRAPERIT SCH (06:00)
[2017-01-03] MEDS ORDERED: DIALYSIS (PERITONL) DEX 4.25% 2,500 ML INTRAPERIT SCH (06:45)
[2017-01-03] MEDS ORDERED: LACTULOSE 20 GM/30 ML CUP PO PRN (06:45)
--- NOTE | 2017-01-03 07:11 | XR ---
Exam: XR ABDOMEN History: Fluid. Comparison: CT of the abdomen and pelvis dated 12/28/16. Radiographs dated 12/29/16. Technique: 2 views. Findings: There are several gas-filled and dilated loops of small bowel. A segment of bowel in the upper abdomen measures up to 6 cm in caliber. This may represent a markedly distended portion of the small bowel. There is also a large amount of gas throughout the colon which is prominent, but not frankly dilated. Given the prominence of gas are at the entire GI tract, this may represent an enterocolitis or ileus. However, the possibility of developing superimposed small bowel obstruction is not ruled out. Close followup recommended. Impression: Probable enterocolitis/ileus. Superimposed small bowel obstruction not ruled out. Close followup recommended.
[2017-01-03] MEDS ORDERED: PIPERACILLIN-TAZOBACTAM 3.375 GM in DEXTROSE/WATER 1 50ML.BAG IVPB SCH ×2 (08:00→21:00)
[2017-01-03 08:17] LABS: Manual Review Performed
[2017-01-03] MEDS: DIALYSIS (PERITONL) DEX 4.25% 2,500 ML INTRAPERIT SCH ×2 (09:51→14:40)
--- NOTE | 2017-01-03 10:19 | P.NPCON ---
History of Present Illness - Reason for Consult end stage renal disease - History of Present Illness Reason for consultation: End-stage renal disease History of present illness: Patient is a 76-year-old female seen in renal consultation for end- stage renal disease. She is maintained on peritoneal dialysis. Patient was just admitted and was discharged from the hospital on January 01. At that time she had developed peritonitis and peritoneal fluid culture was positive for Klebsiella species. She was started on antibiotics on December 28 and at that time she did receive 1 g of intraperitoneal vancomycin and 1 g of Fortaz which has been continued since then. She was also discharged with oral ciprofloxacin per infectious disease recommendations. Patient presented to the hospital last night with abdominal pain and weight gain. According to the she has gained nearly 20 pounds since last admission. She is currently resting in bed. Denies any nausea or vomiting. Denies any chest pain or shortness of breath. Does admit to abdominal discomfort. Fluid hasn't been cloudy. Her cell count was down to 45 on December 31 and is up to 139 today. Vital signs are stable. General: The patient appeared well nourished and normally developed. HEENT: Head exam is unremarkable. Neck is without jugular venous distension. LUNGS: Lungs are clear to auscultation and percussion. Breath sounds decreased. HEART: Rate and Rhythm are regular. First and second heart sounds normal. No murmurs, rubs or gallops. ABDOMEN: Abdominal exam reveals normal bowel sounds. Diffusely tender. Moderately distended. EXTREMITITES: Trace edema. Past Medical History Past Medical History: Heart Failure, Diabetes Mellitus, Hyperlipidemia, Hypertension, Myocardial Infarction ([place]), Renal Disease Additional Past Medical History / Comment(s): ,11/27/15 Pt is a transfer from [facility] to [facility] for CHF, renal failure. Pt presented today to [facility] with MAYRA x 5 days and getting worse. She has a dry cough. 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 Peritonitis Last Myocardial Infarction Date:: unkn- 30 or more yrs ago per EKG History of Any Multi-Drug Resistant Organisms: None Reported Past Surgical History: Back Surgery, Orthopedic Surgery Additional Past Surgical History / Comment(s): 08/31/15 EGD with bx and colonoscopy with ulcerative polyp, right shoulder surgery - humerus ORIF, left ankle ORIF, low back surgery, multiple pain procedures, L cataract removal, R knee arthroscopy. Past Anesthesia/Blood Transfusion Reactions: No Reported Reaction Additional Past Anesthesia/Blood Transfusion Reaction / Comment(s): Pt states she has received blood in the past without reaction. Past Psychological History: No Psychological Hx Reported Additional Psychological History / Comment(s): Pt resides with her spouse. She is independent. She does not use any assistive device. She drives. Smoking Status: Never smoker Past Alcohol Use History: None Reported Past Drug Use History: None Reported - Past Family History Sister(s) Family Medical History: Cancer Additional Family Medical History / Comment(s): Ovarian cancer Brother(s) Family Medical History: Cancer Additional Family Medical History / Comment(s): colon Mother Family Medical History: Diabetes Mellitus Additional Family Medical History / Comment(s): Mother in her 80's Father History Unknown: Yes Additional Family Medical History / Comment(s): Father had a bowel obstruction. He at 84 yrs. Medications and Allergies Home Medications Medication Instructions Recorded Confirmed Type Cholecalciferol [Vitamin D3] 1,000 unit PO BID 08/24/15 01/03/17 History Lovastatin [Mevacor] 10 mg PO DAILY 08/24/15 01/03/17 History Metoprolol Tartrate [Lopressor] 100 mg PO BID 08/24/15 01/03/17 History amLODIPine [Norvasc] 10 mg PO DAILY 08/24/15 01/03/17 History Allopurinol [Zyloprim] 100 mg PO DAILY 11/27/15 01/03/17 History Cyanocobalamin [Vitamin B-12] 1,000 mcg PO HS 11/27/15 01/03/17 History Insulin Glargine [Lantus] 76 unit SQ HS 11/27/15 01/03/17 History Pyridoxine [Vitamin B-6] 100 mg PO HS 11/27/15 01/03/17 History Acetaminophen [Tylenol] 500 mg PO BID 02/06/16 01/03/17 History Aspirin EC [Ecotrin Low Dose] 81 mg PO DAILY 01/03/17 01/03/17 History Furosemide [Lasix] 80 mg PO BID 01/03/17 01/03/17 History Insulin Lispro [humaLOG] 10 units SQ AC-BID 01/03/17 01/03/17 History Allergies Allergy/AdvReac Type Severity Reaction Status Date / Time No Known Allergies Allergy Verified 12/28/16 11:24 Physical Exam Vitals: Vital Signs Temp Pulse Pulse Resp BP BP Pulse Ox 01/03/17 10:00 78 14 126/58 97 01/03/17 07:00 98.1 F 80 18 106/46 01/03/17 04:12 78 20 01/03/17 02:40 96.9 F L 85 18 113/59 97 01/03/17 02:26 98.2 F 81 18 122/57 95 Intake and Output 01/02/17 01/03/17 01/03/17 22:59 06:59 14:59 Intake Total 300 Balance 300 Intake: Intake, IV Titration 300 Amount Magnesium Sulfate-D5w Pmx 300 1 gm In Dextrose/Water 1 100ml.bag @ 100 mls/hr IVPB Q1H [facility] Rx#: [id number] Other: Weight 98.9 kg Results - Lab Results Most recent lab results Calcium 8.0 mg/dL (8.4-10.2) L 01/03/17 04:43 Phosphorus 5.0 mg/dL (2.5-4.5) H 01/03/17 04:43 Magnesium 1.3 mg/dL (1.6-2.3) L 01/03/17 04:43 01/03/17 04:43 01/03/17 04:43 Assessment and Plan Plan: Assessment: #1. End-stage renal disease maintained on peritoneal dialysis. #2. Peritonitis with peritoneal fluid culture positive for Klebsiella. Maintained on antibiotics since December 28. #3. Abdominal pain. This may be related to peritonitis as well as ileus which was noted on abdominal x-ray. #4. Urinary tract infection with urine culture positive for E. coli on December 28. #5. Anemia of chronic kidney disease. #6. Hypokalemia related to poor nutritional status and peritoneal dialysis. Magnesium also low. Plan: Continue with 2 L exchanges every 4 hours was 4.25% dextrose solution. Continue with intraperitoneal Fortaz 1 g daily to dwell for 6 hours. Replace potassium. 40 mEq today. Replace magnesium. 2 g today. Continue to monitor cell count closely. Avoid infectious disease and surgical recommendations. Hep-Lock IV fluids. Thank you for the consultation. I will continue to follow the patient with you during her hospital stay.
[2017-01-03 10:37] LABS: RBC, Body Fluid 143 /uL
[2017-01-03] MEDS ORDERED: METRONIDAZOLE NS PMX INTRAPERIT SCH (14:00)
[2017-01-03] MEDS ORDERED: DIALYSIS DEX INTRAPERIT SCH (14:00)
[2017-01-03] MEDS: POTASSIUM CHLORIDE 10 MEQ, LIDOCAINE 2% INJ 10 MG in SODIUM CHLORIDE 0.9% 100 ML IVPB SCH ×3 (14:19→23:13)
--- NOTE | 2017-01-03 14:20 | P.HPIM ---
History of Present Illness H&P Date: 01/03/17 76-year-old female who was recently discharged from the hospital after being diagnosed with the catheter related bacteria peritonitis secondary to Klebsiella comes back in the hospital with worsening abdominal pain and weekend. In the last physician patient was maintained on intraperitoneal vancomycin and Fortaz. Patient was also given Zosyn initially thereafter discharged home on ciprofloxacin per susceptibilities. On discharge patient was asked to be maintained on 4.5% dianeal alternating with 1.5% as patient did have 2+ pitting edema and some degree of fluid overload. Patient comes back in the hospital with worsening abdominal pain and weight gain currently denies having any fevers, chills, nausea, vomiting. Is able to tolerate diet this a.m. Denies having any urinary urgency or frequency or burning at this time. On the last admission patient was noted to have a urine culture that is positive however was not treated as patient was asymptomatic. Review of Systems All systems: negative (Noted in history of present illness) Past Medical History Past Medical History: Heart Failure, Diabetes Mellitus, Hyperlipidemia, Hypertension, Myocardial Infarction ([place]), Renal Disease Additional Past Medical History / Comment(s): ,11/27/15 Pt is a transfer from [facility] to [facility] for CHF, renal failure. Pt presented today to [facility] with MAYRA x 5 days and getting worse. She has a dry cough. 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 Peritonitis Last Myocardial Infarction Date:: unkn- 30 or more yrs ago per EKG History of Any Multi-Drug Resistant Organisms: None Reported Past Surgical History: Back Surgery, Orthopedic Surgery Additional Past Surgical History / Comment(s): 08/31/15 EGD with bx and colonoscopy with ulcerative polyp, right shoulder surgery - humerus ORIF, left ankle ORIF, low back surgery, multiple pain procedures, L cataract removal, R knee arthroscopy. Past Anesthesia/Blood Transfusion Reactions: No Reported Reaction Additional Past Anesthesia/Blood Transfusion Reaction / Comment(s): Pt states she has received blood in the past without reaction. Past Psychological History: No Psychological Hx Reported Additional Psychological History / Comment(s): Pt resides with her spouse. She is independent. She does not use any assistive device. She drives. Smoking Status: Never smoker Past Alcohol Use History: None Reported Past Drug Use History: None Reported - Past Family History Sister(s) Family Medical History: Cancer Additional Family Medical History / Comment(s): Ovarian cancer Brother(s) Family Medical History: Cancer Additional Family Medical History / Comment(s): colon Mother Family Medical History: Diabetes Mellitus Additional Family Medical History / Comment(s): Mother in her 80's Father History Unknown: Yes Additional Family Medical History / Comment(s): Father had a bowel obstruction. He at 84 yrs. Medications and Allergies Home Medications Medication Instructions Recorded Confirmed Type Cholecalciferol [Vitamin D3] 1,000 unit PO BID 08/24/15 01/03/17 History Lovastatin [Mevacor] 10 mg PO DAILY 08/24/15 01/03/17 History Metoprolol Tartrate [Lopressor] 100 mg PO BID 08/24/15 01/03/17 History amLODIPine [Norvasc] 10 mg PO DAILY 08/24/15 01/03/17 History Allopurinol [Zyloprim] 100 mg PO DAILY 11/27/15 01/03/17 History Cyanocobalamin [Vitamin B-12] 1,000 mcg PO HS 11/27/15 01/03/17 History Insulin Glargine [Lantus] 76 unit SQ HS 11/27/15 01/03/17 History Pyridoxine [Vitamin B-6] 100 mg PO HS 11/27/15 01/03/17 History Acetaminophen [Tylenol] 500 mg PO BID 02/06/16 01/03/17 History Aspirin EC [Ecotrin Low Dose] 81 mg PO DAILY 01/03/17 01/03/17 History Furosemide [Lasix] 80 mg PO BID 01/03/17 01/03/17 History Insulin Lispro [humaLOG] 10 units SQ AC-BID 01/03/17 01/03/17 History Allergies Allergy/AdvReac Type Severity Reaction Status Date / Time No Known Allergies Allergy Verified 12/28/16 11:24 Physical Exam Vitals: Vital Signs Temp Pulse Pulse Resp BP BP Pulse Ox 01/03/17 10:14 80 14 126/58 97 01/03/17 10:00 78 14 126/58 97 01/03/17 08:00 14 01/03/17 07:00 98.1 F 80 18 106/46 01/03/17 04:12 78 20 01/03/17 02:40 96.9 F L 85 18 113/59 97 01/03/17 02:26 98.2 F 81 18 122/57 95 Intake and Output 01/02/17 01/03/17 01/03/17 22:59 06:59 14:59 Intake Total 300 250 Balance 300 250 Intake: Intake, IV Titration 300 Amount Magnesium Sulfate-D5w Pmx 300 1 gm In Dextrose/Water 1 100ml.bag @ 100 mls/hr IVPB Q1H [facility] Rx#: [id number] Oral 250 Other: Weight 98.9 kg 98.43 kg Patient Weight 01/04/17 06:59 Weight 98.43 kg - Exam Physical exam Gen. appearance oriented 3 in no distress Neck is supple no JVD Lungs air movement clear to auscultation no rhonchi wheezing noted Heart S1-S2 heard regular rate and rhythm no murmurs appreciated Abdomen catheter is noted site of the PD catheter is appropriate Abdomen is diffusely tender to palpation Neurologically cranial nerves II-12 grossly intact no focal motor or sensory deficits noted Skin lower extremities 1+ pitting edema noted. Results CBC & Chem 7: 01/03/17 04:43 01/03/17 04:43 Labs: Abnormal Lab Results - Last 24 Hours (Table) 01/03/17 01/03/17 Range/Units 04:43 04:43 RBC 2.78 L (3.80-5.40) m/uL Hgb 9.7 L (11.4-16.0) gm/dL Hct 30.7 L (34.0-46.0) % MCV 110.4 H (80.0-100.0) fL Neutrophils # 7.9 H (1.3-7.7) k/uL Lymphocytes # 0.8 L (1.0-4.8) k/uL Potassium 3.0 L* (3.5-5.1) mmol/L BUN 44 H (7-17) mg/dL Creatinine 3.00 H (0.52-1.04) mg/dL Glucose 59 L (74-99) mg/dL Calcium 8.0 L (8.4-10.2) mg/dL Phosphorus 5.0 H (2.5-4.5) mg/dL Magnesium 1.3 L (1.6-2.3) mg/dL Total Protein 4.8 L (6.3-8.2) g/dL Albumin 2.4 L (3.5-5.0) g/dL Microbiology - Last 24 Hours (Table) 01/03/17 06:51 Gram Stain - Preliminary Peritoneal Fluid Body Fluid Culture - Preliminary Thrombosis Risk Factor Assmnt - Choose All That Apply Any of the Below Risk Factors Present?: Yes Each Factor Represents 1 point: Medical pt on bed rest Other Risk Factors: Yes Each Risk Factor Represents 2 Points: Age 61-74 years Other congenital or acquired thrombophilia - If yes, enter type in comment: No Thrombosis Risk Factor Assessment Total Risk Factor Score: 3 Thrombosis Risk Factor Assessment Level: Moderate Risk Assessment and Plan Plan: #1 abdominal pain likely secondary to mild degree of fluid overload #2 ESRD on PD #3 recent bacterial peritonitis with Klebsiella #4 history of hypertension #5 dyslipidemia #6 acute diarrhea rule out infectious colitis #7 hypokalemia Plan Did discuss with nephrology. Patient's PD exchanges will be changed. Was recommended the patient should have Fortaz indwelling for 6 hours. To continue ciprofloxacin. ID consult and has been reconsulted again. Blood pressures are stable. Medications were Reconciled
--- NOTE | 2017-01-03 15:28 | P.GSCN ---
History of Present Illness Consult date: 01/03/17 Reason for Consult: Peritonitis History of present illness: Patient began experiencing lower abdominal pain 8 days ago. She was hospitalized last Friday and discharged home about 4 days later. She was treated with catheter associated peritonitis. While at home the patient had increasing abdominal bloating and pain and came back to the hospital for those reasons. No high fevers. Repeat cultures are currently pending. She is on antibiotics. We're asked to see this patient for potential catheter removal. The patient and her would like to avoid catheter removal if possible. She had a CAT scan performed which did not show any definite enteric leak or process to explain her peritonitis. Her white blood cell count is normal. Temp 99.5 Review of Systems The patient denies any acute changes in his vision or hearing, no dysphagia or odynophagia, no chest pain or shortness of breath, no dysuria or hematuria, no headache, no runny nose, no rectal bleeding or melena, no unexplained weight loss Past Medical History Past Medical History: Heart Failure, Diabetes Mellitus, Hyperlipidemia, Hypertension, Myocardial Infarction (TN), Renal Disease Additional Past Medical History / Comment(s): ,11/27/15 Pt is a transfer from [facility] to [facility] for CHF, renal failure. Pt presented today to [facility] with MAYRA x 5 days and getting worse. She has a dry cough. 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 Peritonitis Last Myocardial Infarction Date:: unkn- 30 or more yrs ago per EKG History of Any Multi-Drug Resistant Organisms: None Reported Past Surgical History: Back Surgery, Orthopedic Surgery Additional Past Surgical History / Comment(s): 08/31/15 EGD with bx and colonoscopy with ulcerative polyp, right shoulder surgery - humerus ORIF, left ankle ORIF, low back surgery, multiple pain procedures, L cataract removal, R knee arthroscopy. Past Anesthesia/Blood Transfusion Reactions: No Reported Reaction Additional Past Anesthesia/Blood Transfusion Reaction / Comm: Pt states she has received blood in the past without reaction. Past Psychological History: No Psychological Hx Reported Additional Psychological History / Comment(s): Pt resides with her spouse. She is independent. She does not use any assistive device. She drives. Smoking Status: Never smoker Past Alcohol Use History: None Reported Past Drug Use History: None Reported - Past Family History Sister(s) Family Medical History: Cancer Additional Family Medical History / Comment(s): Ovarian cancer Brother(s) Family Medical History: Cancer Additional Family Medical History / Comment(s): colon Mother Family Medical History: Diabetes Mellitus Additional Family Medical History / Comment(s): Mother in her 80's Father History Unknown: Yes Additional Family Medical History / Comment(s): Father had a bowel obstruction. He at 84 yrs. Medications and Allergies Home Medications Medication Instructions Recorded Confirmed Type Cholecalciferol [Vitamin D3] 1,000 unit PO BID 08/24/15 01/03/17 History Lovastatin [Mevacor] 10 mg PO DAILY 08/24/15 01/03/17 History Metoprolol Tartrate [Lopressor] 100 mg PO BID 08/24/15 01/03/17 History amLODIPine [Norvasc] 10 mg PO DAILY 08/24/15 01/03/17 History Allopurinol [Zyloprim] 100 mg PO DAILY 11/27/15 01/03/17 History Cyanocobalamin [Vitamin B-12] 1,000 mcg PO HS 11/27/15 01/03/17 History Insulin Glargine [Lantus] 76 unit SQ HS 11/27/15 01/03/17 History Pyridoxine [Vitamin B-6] 100 mg PO HS 11/27/15 01/03/17 History Acetaminophen [Tylenol] 500 mg PO BID 02/06/16 01/03/17 History Aspirin EC [Ecotrin Low Dose] 81 mg PO DAILY 01/03/17 01/03/17 History Furosemide [Lasix] 80 mg PO BID 01/03/17 01/03/17 History Insulin Lispro [humaLOG] 10 units SQ AC-BID 01/03/17 01/03/17 History Allergies Allergy/AdvReac Type Severity Reaction Status Date / Time No Known Allergies Allergy Verified 12/28/16 11:24 Surgical - Exam Vital Signs Temp Pulse Resp BP Pulse Ox 98.1 F 94 20 122/63 95 01/02/17 23:57 01/02/17 23:57 01/02/17 23:57 01/02/17 23:57 01/02/17 23:57 Physical exam: General: Well-developed, well-nourished HEENT: Normocephalic, sclerae nonicteric Abdomen: Mild diffuse tenderness increased in the lower quadrants, no rebound or guarding, catheter and intact, mild distention Extremities: No edema Neuro: Alert and oriented Results - Labs 01/03/17 04:43 01/03/17 04:43 Abnormal Lab Results - Last 24 Hours (Table) 01/03/17 01/03/17 Range/Units 04:43 04:43 RBC 2.78 L (3.80-5.40) m/uL Hgb 9.7 L (11.4-16.0) gm/dL Hct 30.7 L (34.0-46.0) % MCV 110.4 H (80.0-100.0) fL Neutrophils # 7.9 H (1.3-7.7) k/uL Lymphocytes # 0.8 L (1.0-4.8) k/uL Potassium 3.0 L* (3.5-5.1) mmol/L BUN 44 H (7-17) mg/dL Creatinine 3.00 H (0.52-1.04) mg/dL Glucose 59 L (74-99) mg/dL Calcium 8.0 L (8.4-10.2) mg/dL Phosphorus 5.0 H (2.5-4.5) mg/dL Magnesium 1.3 L (1.6-2.3) mg/dL Total Protein 4.8 L (6.3-8.2) g/dL Albumin 2.4 L (3.5-5.0) g/dL Microbiology - Last 24 Hours (Table) 01/03/17 06:51 Gram Stain - Preliminary Peritoneal Fluid Body Fluid Culture - Preliminary Diabetes panel 01/03/17 Range/Units 04:43 Sodium 138 (137-145) mmol/L Potassium 3.0 L* (3.5-5.1) mmol/L Chloride 100 (98-107) mmol/L Carbon Dioxide 27 (22-30) mmol/L BUN 44 H (7-17) mg/dL Creatinine 3.00 H (0.52-1.04) mg/dL Glucose 59 L (74-99) mg/dL Calcium 8.0 L (8.4-10.2) mg/dL AST 19 (14-36) U/L ALT 35 (9-52) U/L Alkaline Phosphatase 102 (38-126) U/L Total Protein 4.8 L (6.3-8.2) g/dL Albumin 2.4 L (3.5-5.0) g/dL Calcium panel 01/03/17 Range/Units 04:43 Calcium 8.0 L (8.4-10.2) mg/dL Phosphorus 5.0 H (2.5-4.5) mg/dL Albumin 2.4 L (3.5-5.0) g/dL Pituitary panel 01/03/17 Range/Units 04:43 Sodium 138 (137-145) mmol/L Potassium 3.0 L* (3.5-5.1) mmol/L Chloride 100 (98-107) mmol/L Carbon Dioxide 27 (22-30) mmol/L BUN 44 H (7-17) mg/dL Creatinine 3.00 H (0.52-1.04) mg/dL Glucose 59 L (74-99) mg/dL Calcium 8.0 L (8.4-10.2) mg/dL Adrenal panel 01/03/17 Range/Units 04:43 Sodium 138 (137-145) mmol/L Potassium 3.0 L* (3.5-5.1) mmol/L Chloride 100 (98-107) mmol/L Carbon Dioxide 27 (22-30) mmol/L BUN 44 H (7-17) mg/dL Creatinine 3.00 H (0.52-1.04) mg/dL Glucose 59 L (74-99) mg/dL Calcium 8.0 L (8.4-10.2) mg/dL Total Bilirubin 0.3 (0.2-1.3) mg/dL AST 19 (14-36) U/L ALT 35 (9-52) U/L Alkaline Phosphatase 102 (38-126) U/L Total Protein 4.8 L (6.3-8.2) g/dL Albumin 2.4 L (3.5-5.0) g/dL Assessment and Plan (1) Peritonitis associated with peritoneal dialysis Narrative/Plan: Continue antibiotics. Await cultures. Will follow. Status: Acute
--- NOTE | 2017-01-03 19:47 | CONS ---
DATE OF CONSULTATION: 01/03/2017. REASON FOR CONSULTATION: Peritonitis. HISTORY OF PRESENT ILLNESS: The patient is a 76 -year-old female with a past medical history significant for end-stage renal disease on peritoneal dialysis. She was recently admitted to the [facility] with a PD catheter associated peritonitis. Cultures were positive for Klebsiella. She was treated with Fortaz in the dialysis bag in addition to a Zosyn systemically that was switched to ciprofloxacin 500 daily at the time of discharge for another 2 week course. The patient coming back to the ER early this morning with chief complaint of abdominal pain and distention. Patient described the pain to be mostly generalized almost 7 to 8 out of 10 and no radiation. Patient denies any nausea and vomiting. Denies any fever and chills. She did mention that she has been retaining more fluid with more swelling in the legs as well. Subsequently evaluated by the ER physician. The patient did have a abdominal x-ray which did show enterocolitis/ ileus small bowel obstruction not ruled out. The patient did have elevated white count of 11.5. She did have peritoneal fluid sent for culture, which was colorless clear with nucleated cells 139. Repeat now showing slightly cloudy with cell count of 324. The patient has been started on Rocephin with Flagyl in the back. I was asked to see the patient for further recommendation regarding antibiotic therapy. REVIEW OF SYSTEMS: CONSTITUTIONAL: Positive for weakness but no fever has been recorded. EYES: No complaint. ENT: No complaint. RESPIRATORY: No complaint. CARDIOVASCULAR: No complaint. GENITOURINARY: No complaint. GASTROINTESTINAL: As per HPI. MUSCULOSKELETAL: No complaint. INTEGUMENTARY: No complaint. PSYCHOLOGICAL: No complaint. NEUROLOGIC: No complaint. ENDOCRINOLOGIC: No complaint. Her past medical history significant for end-stage renal disease on hemodialysis, PD catheter associated peritonitis, diabetes mellitus, hypertension, hyperlipidemia, coronary artery disease. PAST MEDICAL HISTORY: Back surgery, EGD with biopsy, colonoscopy, left ankle ORIF, back surgery, cataract removal, right knee arthroscopy. SOCIAL HISTORY: No history of smoking, drinking or drug use. Lives with her . FAMILY HISTORY: Sister with history of ovarian cancer. Brother with history of colon cancer. Mother with history of diabetes. ALLERGIES: No known drug allergies. Medications currently include the patient on: 1. Rocephin 1 gram IV piggyback daily. 2. Dilaudid. 3. Lactulose. 4. Flagyl. 5. Zofran. On examination, blood pressure is 125/61 with a pulse of 87, temperature 98.1. She is 97% on 2 liters nasal cannula. General description is an elderly female, lying in bed in no distress. No tachypnea or accessory muscle of respiration use. HEENT examination shows slight pallor. No scleral icterus. Oral mucous membranes dry. NECK: Trachea central. There is no thyromegaly. LUNGS: Unlabored breathing. Clear to auscultation anteriorly. HEART: S1, S2 regular rate and rhythm. ABDOMEN: Soft, slightly distended. Mild guarding. No rigidity. PD catheter site is clean. EXTREMITIES: Trace edema of feet. SKIN EXAMINATION: No rash or mass palpable. NEUROLOGICAL: The patient is awake, alert, oriented x3. Mood and affect normal. LABS: Hemoglobin 9.7, white count 9.8, admission white count 11.5, potassium is 3. Hemoglobin 10 BUN of 44 with creatinine 3.0. PT fluid is slightly cloudy. Cultures currently pending. DIAGNOSTIC IMPRESSION AND PLAN: Patient with abdominal pain and distention, more likely peritonitis in a patient who recently did have Klebsiella growing in those fluid which was sensitive to ciprofloxacin on which the patient was discharged home, now coming back with more pain though the fluid is not as cloudy and abdominal distention. Question of possible recurrent peritonitis with the same failing the initial therapy. PLAN: 1. We will discuss with surgery to see if we can do a CT of the abdomen and pelvis to make sure no other intraabdominal pathology. 2. We will add Rocephin to the intra-abdominal/peritoneal diasylate while awaiting for the cultures to finalize. 3. Will follow up with clinical condition and cultures to further adjust the medication if needed. Thank you for this consultation. Will follow this patient along with you. ELA
[2017-01-03] MEDS: DIALYSIS DEX INTRAPERIT SCH (19:58)
[2017-01-03] MEDS: CEFTRIAXONE INTRAPERIT SCH (19:58)
[2017-01-03] MEDS: DIALYSIS (PERITONL) DEX 4.25% 2,000 ML INTRAPERIT SCH (22:44)
[2017-01-04] MEDS: DIALYSIS (PERITONL) DEX 4.25% 2,000 ML INTRAPERIT SCH ×3 (00:13→08:20)
[2017-01-04] MEDS: POTASSIUM CHLORIDE 10 MEQ, LIDOCAINE 2% INJ 10 MG in SODIUM CHLORIDE 0.9% 100 ML IVPB SCH (00:18)
[2017-01-04] MEDS: HYDROmorphone 1 MG/ML 1 ML SYRINGE IVP PRN ×3 (06:55→22:56)
[2017-01-04 07:40] LABS: Basophils # (A) 0.1 k/uL (0-0.2); Basophils % (A) 1 %; CH 34.7; CHCM 30.7; Eosinophils # (A) 0.3 k/uL (0-0.7); Eosinophils % (A) 3 %; HCT 32.4 % (34.0-46.0); HDW 3.04; Hypochromasia Moderate; Luc % (Auto) 2; Lymphocytes # (A) 0.5 k/uL (1.0-4.8); Lymphocytes % (A) 6 %; MCH 34.9 pg (25.0-35.0); MCHC 30.7 g/dL (31.0-37.0); MCV 113.8 fL (80.0-100.0); Macrocytosis Marked; Mean Platelet Volume 9.3; Monocytes # (A) 0.4 k/uL (0-1.0); Monocytes % (A) 5 %; Neutrophils # (A) 7.5 k/uL (1.3-7.7); Neutrophils % (A) 84 %; RBC 2.85 m/uL (3.80-5.40); WBC (Perox) 8.11
[2017-01-04 07:52] LABS: Total Protein 5.1 g/dL (6.3-8.2)
[2017-01-04 07:54] LABS: Calcium 8.5 mg/dL (8.4-10.2); Magnesium 2.3 mg/dL (1.6-2.3); Potassium 4.1 mmol/L (3.5-5.1); Total Bilirubin 0.3 mg/dL (0.2-1.3)
[2017-01-04 10:01] LABS: Appearance,Urine Turbid (Clear); Bilirubin,Urine Negative (Negative); Glucose,Urine (UA) 2+ (Negative); Ketones,Urine Negative (Negative); Leukocyte Esterase,Urine Large (Negative); Nitrite,Urine Negative (Negative); Particle Count 24295; Protein,Urine 1+ (Negative); RBC,Urine 58 /hpf (0-5); Specific Gravity,Urine 1.014 (1.001-1.035); Squamous Epithelial Cell,Urine 51 /hpf (0-4); UA Billing (MACRO vs. MICRO) MICRO; Urobilinogen,Urine <2.0 mg/dL (<2.0); WBC,Urine 11 /hpf (0-5)
--- NOTE | 2017-01-04 11:45 | P.PN ---
Subjective Principal diagnosis: Peritonitis Patient says she feels slightly better than yesterday. She is afebrile. Cultures are currently pending. Objective - Vital Signs Vital signs: Vital Signs Temp 97.8 F 01/04/17 07:00 Pulse 92 01/04/17 07:00 Resp 18 01/04/17 07:00 BP 138/65 01/04/17 07:00 Pulse Ox 94 L 01/04/17 07:00 Intake & Output 01/03/17 01/04/17 01/04/17 18:59 06:59 18:59 Intake Total 900 990 Output Total 300 300 Balance 600 990 -300 Weight 98.43 kg 98.43 kg Intake: Intake, IV Titration 250 Amount Magnesium Sulfate-D5w Pmx 100 1 gm In Dextrose/Water 1 100ml.bag @ 100 mls/hr IVPB Q1H [facility] Rx#: [id number] Piperacillin-Tazobactam 3 50 .375 gm In Dextrose/Water 1 50ml.bag @ 12.5 mls/hr IVPB Q8HR [facility] Rx#: [id number] Potassium Chloride 10 meq 100 Lidocaine 2% Inj 10 mg In Sodium Chloride 0.9% 100 ml @ 100 mls/hr IVPB Q1HR [facility] Rx#:[id number] Oral 650 990 Output: Urine 300 300 Other: Voiding Method CAPD # Voids 2 2 # Bowel Movements 1 1 - Exam Abdomen: Soft, distended, mild diffuse tenderness particularly lower abdomen - Labs CBC & Chem 7: 01/04/17 07:05 01/04/17 07:05 Labs: Abnormal Lab Results - Last 24 Hours (Table) 01/04/17 01/04/17 01/04/17 Range/Units 03:52 07:05 07:05 RBC 2.85 L (3.80-5.40) m/uL Hgb 10.0 L (11.4-16.0) gm/dL Hct 32.4 L (34.0-46.0) % MCV 113.8 H (80.0-100.0) fL MCHC 30.7 L (31.0-37.0) g/dL Lymphocytes # 0.5 L (1.0-4.8) k/uL BUN 39 H (7-17) mg/dL Creatinine 2.94 H (0.52-1.04) mg/dL Glucose 358 H (74-99) mg/dL Alkaline Phosphatase 128 H (38-126) U/L Total Protein 5.1 L (6.3-8.2) g/dL Albumin 2.6 L (3.5-5.0) g/dL Urine Appearance Turbid H (Clear) Urine Protein 1+ H (Negative) Urine Glucose (UA) 2+ H (Negative) Urine Blood Moderate H (Negative) Ur Leukocyte Esterase Large H (Negative) Urine RBC 58 H (0-5) /hpf Urine WBC 11 H (0-5) /hpf Ur Squamous Epith Cells 51 H (0-4) /hpf Urine Yeast (Budding) Many H (None) /hpf Microbiology - Last 24 Hours (Table) 01/03/17 06:51 Gram Stain - Preliminary Peritoneal Fluid Body Fluid Culture - Preliminary Assessment and Plan (1) Peritonitis associated with peritoneal dialysis Narrative/Plan: Continue antibiotics. Continue diet as tolerated. Will follow with you. Status: Acute
[2017-01-04 11:52] LABS: Glucose,Whole Blood 454 mg/dL (75-99)
[2017-01-04] MEDS ORDERED: INSULIN REGULAR 100 UNIT/ML VIAL IV ONE (12:02)
[2017-01-04] MEDS: ASPIRIN 81 MG CHEW PO SCH (12:11)
[2017-01-04] MEDS ORDERED: INSULIN GLARGINE 100 UNIT/ML 10 ML VIAL SQ ONE (12:56)
--- NOTE | 2017-01-04 15:37 | PN ---
Patient is seen for followup for end-stage renal disease. She is currently maintained on peritoneal dialysis. She was admitted to the hospital with recurrent abdominal pain and fluid overload. Currently she is maintained on 4.25% solution q.4 hours. She has had about 300 to 200 mL of ultrafiltration with each exchange. Overall, patient states she is feeling better. On examination, blood pressure is 138/65, heart rate 92 per minute. She is afebrile. EXAMINATION OF THE HEART: S1 and S2. EXAMINATION OF THE LUNGS: Bilateral breath sounds are heard. Decreased breath sounds in the bases. ABDOMEN: Soft, nontender. Examination of lower extremities shows edema 1+ bilaterally. Labs show ( ) cell count of about 90 in the PD fluid. Hemoglobin 10.0. Potassium 4.1. ASSESSMENT: 1. End-stage renal disease on peritoneal dialysis. Continue current PD exchanges. 2. CAPD peritonitis with the fluid culture that grew Klebsiella, maintained on ceftriaxone intraperitoneally. 3. Hypertension, currently controlled. PLAN: Continue current PD exchanges. Add IV Lasix to help with volume overload.
[2017-01-04] MEDS ORDERED: FUROSEMIDE 80 MG TAB PO SCH (16:00)
[2017-01-04 17:26] LABS: Glucose,Whole Blood 263 mg/dL (75-99)
[2017-01-04] MEDS: INSULIN LISPRO (humaLOG) 300 UNIT/3 ML VIAL SQ SCH (17:30)
--- NOTE | 2017-01-04 17:30 | P.PN ---
Subjective 76-year-old female who was recently discharged from the hospital after being diagnosed with the catheter related bacteria peritonitis secondary to Klebsiella comes back in the hospital with worsening abdominal pain and weekend. In the last physician patient was maintained on intraperitoneal vancomycin and Fortaz. Patient was also given Zosyn initially thereafter discharged home on ciprofloxacin per susceptibilities. On discharge patient was asked to be maintained on 4.5% dianeal alternating with 1.5% as patient did have 2+ pitting edema and some degree of fluid overload. Patient comes back in the hospital with worsening abdominal pain and weight gain currently denies having any fevers, chills, nausea, vomiting. Is able to tolerate diet this a.m. Denies having any urinary urgency or frequency or burning at this time. On the last admission patient was noted to have a urine culture that is positive however was not treated as patient was asymptomatic. 01/04/17 States pain is slightly improved NO more diarrhea reported No feves, chills, chest pain, navarro nausea, or vomiting reported. Glucose levels were elevated. Objective - Vital Signs Vital signs: Vital Signs Temp 97.8 F 01/04/17 07:00 Pulse 103 H 01/04/17 16:00 Resp 18 01/04/17 16:00 BP 169/77 01/04/17 15:00 Pulse Ox 93 L 01/04/17 15:00 Intake & Output 01/03/17 01/04/17 01/04/17 18:59 06:59 18:59 Intake Total 900 990 700 Output Total 300 600 Balance 600 990 100 Weight 98.43 kg 98.43 kg Intake: Intake, IV Titration 250 100 Amount Magnesium Sulfate-D5w Pmx 100 1 gm In Dextrose/Water 1 100ml.bag @ 100 mls/hr IVPB Q1H [facility] Rx#: [id number] Piperacillin-Tazobactam 3 50 .375 gm In Dextrose/Water 1 50ml.bag @ 12.5 mls/hr IVPB Q8HR [facility] Rx#: [id number] Potassium Chloride 10 meq 100 Lidocaine 2% Inj 10 mg In Sodium Chloride 0.9% 100 ml @ 100 mls/hr IVPB Q1HR [facility] Rx#:[id number] cefTRIAXone 1,000 mg In 100 Sodium Chloride 0.9% 50 ml @ 100 mls/hr IVPB Q24HR [facility] Rx#:[id number] Oral 650 990 600 Output: Urine 300 600 Other: Voiding Method CAPD # Voids 2 1 # Bowel Movements 1 1 - Constitutional General appearance: Present: average body habitus, no acute distress - EENT Eyes: Present: PERRLA - Neck Neck: Present: normal ROM - Respiratory Respiratory: bilateral: CTA, negative: dullness, rales, rhonchi, wheezing - Cardiovascular Rhythm: regular Heart sounds: normal: S1, S2 Abnormal Heart Sounds: Absent: systolic murmur - Gastrointestinal General gastrointestinal: Present: normal bowel sounds, tenderness. Absent: organomegaly - Integumentary Integumentary: Present: normal, normal turgor - Neurologic Neurologic: Present: CNII-XII intact. Absent: focal deficits - Musculoskeletal Musculoskeletal: Present: gait normal, generalized weakness, strength equal bilaterally - Psychiatric Psychiatric: Present: A&O x's 3, appropriate affect - Labs CBC & Chem 7: 01/04/17 07:05 01/04/17 07:05 Labs: Abnormal Lab Results - Last 24 Hours (Table) 01/04/17 01/04/17 01/04/17 Range/Units 03:52 07:05 07:05 RBC 2.85 L (3.80-5.40) m/uL Hgb 10.0 L (11.4-16.0) gm/dL Hct 32.4 L (34.0-46.0) % MCV 113.8 H (80.0-100.0) fL MCHC 30.7 L (31.0-37.0) g/dL Lymphocytes # 0.5 L (1.0-4.8) k/uL BUN 39 H (7-17) mg/dL Creatinine 2.94 H (0.52-1.04) mg/dL Glucose 358 H (74-99) mg/dL POC Glucose (mg/dL) (75-99) mg/dL Alkaline Phosphatase 128 H (38-126) U/L Total Protein 5.1 L (6.3-8.2) g/dL Albumin 2.6 L (3.5-5.0) g/dL Urine Appearance Turbid H (Clear) Urine Protein 1+ H (Negative) Urine Glucose (UA) 2+ H (Negative) Urine Blood Moderate H (Negative) Ur Leukocyte Esterase Large H (Negative) Urine RBC 58 H (0-5) /hpf Urine WBC 11 H (0-5) /hpf Ur Squamous Epith Cells 51 H (0-4) /hpf Urine Yeast (Budding) Many H (None) /hpf 01/04/17 01/04/17 Range/Units 11:51 17:16 RBC (3.80-5.40) m/uL Hgb (11.4-16.0) gm/dL Hct (34.0-46.0) % MCV (80.0-100.0) fL MCHC (31.0-37.0) g/dL Lymphocytes # (1.0-4.8) k/uL BUN (7-17) mg/dL Creatinine (0.52-1.04) mg/dL Glucose (74-99) mg/dL POC Glucose (mg/dL) 454 H 263 H (75-99) mg/dL Alkaline Phosphatase (38-126) U/L Total Protein (6.3-8.2) g/dL Albumin (3.5-5.0) g/dL Urine Appearance (Clear) Urine Protein (Negative) Urine Glucose (UA) (Negative) Urine Blood (Negative) Ur Leukocyte Esterase (Negative) Urine RBC (0-5) /hpf Urine WBC (0-5) /hpf Ur Squamous Epith Cells (0-4) /hpf Urine Yeast (Budding) (None) /hpf Microbiology - Last 24 Hours (Table) 01/03/17 06:51 Gram Stain - Preliminary Peritoneal Fluid Body Fluid Culture - Preliminary Assessment and Plan Plan: #1 abdominal pain likely secondary to mild degree of fluid overload #2 ESRD on PD #3 recent bacterial peritonitis with Klebsiella #4 history of hypertension #5 dyslipidemia #6 acute diarrhea rule out infectious colitis #7 hypokalemia Plan ID recommendations noted Pt appears to be slightly improved Continue aggresive fluid removal Encourage ambulation IV regular insulin 10 units restart home meds DVT prophylaxis Bp stable. Intraperitoneal abx.
[2017-01-04 20:07] LABS: Glucose,Whole Blood 284 mg/dL (75-99)
[2017-01-04] MEDS: DIALYSIS DEX INTRAPERIT SCH (20:34)
[2017-01-04] MEDS: CEFTRIAXONE INTRAPERIT SCH (20:34)
[2017-01-04] MEDS: ACETAMINOPHEN TAB 500 MG TAB PO SCH (22:20)
[2017-01-04] MEDS: CHOLECALCIFEROL 1,000 UNIT TAB PO SCH (22:21)
[2017-01-04] MEDS: PYRIDOXINE 50 MG TAB PO SCH (22:21)
[2017-01-04] MEDS: METOPROLOL TARTRATE 50 MG TAB PO SCH (22:21)
[2017-01-04] MEDS: FUROSEMIDE 10 MG/ML 10 ML VIAL IV SCH (22:22)
[2017-01-05] MEDS: DIALYSIS (PERITONL) DEX 4.25% 2,000 ML INTRAPERIT SCH ×3 (01:01→08:42)
[2017-01-05] MEDS: HYDROmorphone 1 MG/ML 1 ML SYRINGE IVP PRN ×3 (03:25→21:32)
[2017-01-05] MEDS: INSULIN GLARGINE 100 UNIT/ML 10 ML VIAL SQ SCH ×2 (07:21→22:49)
[2017-01-05 07:26] LABS: Basophils # (A) 0.1 k/uL (0-0.2); Basophils % (A) 1 %; CH 34.9; CHCM 30.5; Eosinophils # (A) 0.4 k/uL (0-0.7); Eosinophils % (A) 4 %; HDW 3.08; HGB 10.2 gm/dL (11.4-16.0); Hypochromasia Marked; Luc # (Auto) 0.23; Luc % (Auto) 2; Lymphocytes # (A) 0.8 k/uL (1.0-4.8); Lymphocytes % (A) 7 %; MCH 34.5 pg (25.0-35.0); Macrocytosis Marked; Mean Platelet Volume 8.1; Monocytes # (A) 0.5 k/uL (0-1.0); Monocytes % (A) 4 %; Neutrophils # (A) 8.6 k/uL (1.3-7.7); Neutrophils % (A) 82 %; RBC 2.96 m/uL (3.80-5.40); RDW 14.9 % (11.5-15.5); WBC 10.4 k/uL (3.8-10.6)
[2017-01-05] MEDS: ASPIRIN 81 MG CHEW PO SCH (07:31)
[2017-01-05] MEDS: FUROSEMIDE 10 MG/ML 10 ML VIAL IV SCH ×2 (07:31→21:41)
[2017-01-05] MEDS: ATORVASTATIN 10 MG TAB PO SCH (07:32)
[2017-01-05] MEDS: METOPROLOL TARTRATE 50 MG TAB PO SCH ×2 (07:32→21:42)
[2017-01-05] MEDS: ALLOPURINOL 100 MG TAB PO SCH (07:32)
[2017-01-05] MEDS: amLODIPine 10 MG TAB PO SCH (07:32)
[2017-01-05] MEDS: CHOLECALCIFEROL 1,000 UNIT TAB PO SCH ×2 (07:32→21:41)
[2017-01-05 07:37] LABS: Glucose,Whole Blood 242 mg/dL (75-99)
[2017-01-05 07:52] LABS: Calcium 8.9 mg/dL (8.4-10.2); Total Bilirubin 0.4 mg/dL (0.2-1.3); Total Protein 5.3 g/dL (6.3-8.2)
[2017-01-05] MEDS: INSULIN LISPRO (humaLOG) 300 UNIT/3 ML VIAL SQ SCH ×2 (08:00→17:39)
[2017-01-05 09:32] LABS: Large Platelets Present; Polychromasia Present
[2017-01-05 09:33] LABS: Manual Review Performed
[2017-01-05] MEDS: ACETAMINOPHEN TAB 500 MG TAB PO SCH ×2 (09:38→21:41)
--- NOTE | 2017-01-05 10:13 | P.PN ---
Subjective Principal diagnosis: Peritonitis Overall patient feels slightly better. Still with some abdominal bloating. No nausea or vomiting. Objective - Vital Signs Vital signs: Vital Signs Temp 97.5 F L 01/05/17 07:00 Pulse 76 01/05/17 08:00 Resp 18 01/05/17 08:00 BP 151/71 01/05/17 07:00 Pulse Ox 97 01/05/17 07:00 Intake & Output 01/04/17 01/05/17 01/05/17 17:59 06:59 18:59 Intake Total Output Total Balance Weight 98.43 kg Intake: Intake, IV Titration Amount cefTRIAXone 1,000 mg In Sodium Chloride 0.9% 50 ml @ 100 mls/hr IVPB Q24HR [facility] Rx#:[id number] Oral Output: Urine Other: Voiding Method CAPD # Voids # Bowel Movements 1 - Exam Abdomen: Soft, mild distention, mild lower abdominal tenderness - Labs CBC & Chem 7: 01/05/17 07:01 01/05/17 07:01 Labs: Abnormal Lab Results - Last 24 Hours (Table) 01/04/17 01/04/17 01/04/17 Range/Units 03:52 11:51 17:16 RBC (3.80-5.40) m/uL Hgb (11.4-16.0) gm/dL MCV (80.0-100.0) fL MCHC (31.0-37.0) g/dL Neutrophils # (1.3-7.7) k/uL Lymphocytes # (1.0-4.8) k/uL BUN (7-17) mg/dL Creatinine (0.52-1.04) mg/dL Glucose (74-99) mg/dL POC Glucose (mg/dL) 454 H 263 H (75-99) mg/dL Total Protein (6.3-8.2) g/dL Albumin (3.5-5.0) g/dL Urine Appearance Turbid H (Clear) Urine Protein 1+ H (Negative) Urine Glucose (UA) 2+ H (Negative) Urine Blood Moderate H (Negative) Ur Leukocyte Esterase Large H (Negative) Urine RBC 58 H (0-5) /hpf Urine WBC 11 H (0-5) /hpf Ur Squamous Epith Cells 51 H (0-4) /hpf Urine Yeast (Budding) Many H (None) /hpf 01/04/17 01/05/17 01/05/17 Range/Units 20:06 07:01 07:01 RBC 2.96 L (3.80-5.40) m/uL Hgb 10.2 L (11.4-16.0) gm/dL MCV 115.0 H (80.0-100.0) fL MCHC 30.0 L (31.0-37.0) g/dL Neutrophils # 8.6 H (1.3-7.7) k/uL Lymphocytes # 0.8 L (1.0-4.8) k/uL BUN 40 H (7-17) mg/dL Creatinine 2.84 H (0.52-1.04) mg/dL Glucose 259 H (74-99) mg/dL POC Glucose (mg/dL) 284 H (75-99) mg/dL Total Protein 5.3 L (6.3-8.2) g/dL Albumin 2.8 L (3.5-5.0) g/dL Urine Appearance (Clear) Urine Protein (Negative) Urine Glucose (UA) (Negative) Urine Blood (Negative) Ur Leukocyte Esterase (Negative) Urine RBC (0-5) /hpf Urine WBC (0-5) /hpf Ur Squamous Epith Cells (0-4) /hpf Urine Yeast (Budding) (None) /hpf 01/05/17 Range/Units 07:36 RBC (3.80-5.40) m/uL Hgb (11.4-16.0) gm/dL MCV (80.0-100.0) fL MCHC (31.0-37.0) g/dL Neutrophils # (1.3-7.7) k/uL Lymphocytes # (1.0-4.8) k/uL BUN (7-17) mg/dL Creatinine (0.52-1.04) mg/dL Glucose (74-99) mg/dL POC Glucose (mg/dL) 242 H (75-99) mg/dL Total Protein (6.3-8.2) g/dL Albumin (3.5-5.0) g/dL Urine Appearance (Clear) Urine Protein (Negative) Urine Glucose (UA) (Negative) Urine Blood (Negative) Ur Leukocyte Esterase (Negative) Urine RBC (0-5) /hpf Urine WBC (0-5) /hpf Ur Squamous Epith Cells (0-4) /hpf Urine Yeast (Budding) (None) /hpf Microbiology - Last 24 Hours (Table) 01/03/17 06:51 Gram Stain - Preliminary Peritoneal Fluid Body Fluid Culture - Preliminary Assessment and Plan (1) Peritonitis associated with peritoneal dialysis Narrative/Plan: Continue antibiotics. Monitor dialysis fluid input and output. We'll follow. Status: Acute
[2017-01-05 11:22] LABS: Glucose,Whole Blood 377 mg/dL (75-99)
[2017-01-05] MEDS ORDERED: INSULIN LISPRO (humaLOG) 300 UNIT/3 ML VIAL SQ ONE (12:26)
[2017-01-05 17:15] LABS: Glucose,Whole Blood 263 mg/dL (75-99)
--- NOTE | 2017-01-05 18:06 | P.PN ---
Subjective 76-year-old female who was recently discharged from the hospital after being diagnosed with the catheter related bacteria peritonitis secondary to Klebsiella comes back in the hospital with worsening abdominal pain and weekend. In the last physician patient was maintained on intraperitoneal vancomycin and Fortaz. Patient was also given Zosyn initially thereafter discharged home on ciprofloxacin per susceptibilities. On discharge patient was asked to be maintained on 4.5% dianeal alternating with 1.5% as patient did have 2+ pitting edema and some degree of fluid overload. Patient comes back in the hospital with worsening abdominal pain and weight gain currently denies having any fevers, chills, nausea, vomiting. Is able to tolerate diet this a.m. Denies having any urinary urgency or frequency or burning at this time. On the last admission patient was noted to have a urine culture that is positive however was not treated as patient was asymptomatic. 01/04/17 States pain is slightly improved NO more diarrhea reported No feves, chills, chest pain, navarro nausea, or vomiting reported. Glucose levels were elevated. 01/05/17 No new overnight events States pain is improved Had a bm. no fevers, chills, nausea, vomiting reported. Objective - Vital Signs Vital signs: Vital Signs Temp 98.4 F 01/05/17 15:00 Pulse 76 01/05/17 15:09 Resp 18 01/05/17 15:09 BP 136/65 01/05/17 15:00 Pulse Ox 97 01/05/17 15:00 Intake & Output 01/04/17 01/05/17 01/05/17 17:59 06:59 18:59 Intake Total 680 Output Total Balance 680 Weight 98.43 kg Intake: Intake, IV Titration Amount cefTRIAXone 1,000 mg In Sodium Chloride 0.9% 50 ml @ 100 mls/hr IVPB Q24HR [facility] Rx#:[id number] Oral 680 Output: Urine Other: Voiding Method CAPD # Voids 2 # Bowel Movements 1 - Constitutional General appearance: Present: average body habitus, no acute distress - EENT Eyes: Present: PERRLA - Neck Neck: Present: normal ROM. Absent: rigidity - Respiratory Respiratory: bilateral: CTA - Cardiovascular Rhythm: regular Heart sounds: normal: S1, S2 - Gastrointestinal General gastrointestinal: Present: normal bowel sounds, soft. Absent: organomegaly - Neurologic Neurologic: Present: CNII-XII intact. Absent: focal deficits - Psychiatric Psychiatric: Present: A&O x's 3, appropriate affect - Labs CBC & Chem 7: 01/05/17 07:01 01/05/17 07:01 Labs: Abnormal Lab Results - Last 24 Hours (Table) 01/04/17 01/04/17 01/05/17 Range/Units 17:16 20:06 07:01 RBC 2.96 L (3.80-5.40) m/uL Hgb 10.2 L (11.4-16.0) gm/dL MCV 115.0 H (80.0-100.0) fL MCHC 30.0 L (31.0-37.0) g/dL Neutrophils # 8.6 H (1.3-7.7) k/uL Lymphocytes # 0.8 L (1.0-4.8) k/uL BUN (7-17) mg/dL Creatinine (0.52-1.04) mg/dL Glucose (74-99) mg/dL POC Glucose (mg/dL) 263 H 284 H (75-99) mg/dL Total Protein (6.3-8.2) g/dL Albumin (3.5-5.0) g/dL 01/05/17 01/05/17 01/05/17 Range/Units 07:01 07:36 11:21 RBC (3.80-5.40) m/uL Hgb (11.4-16.0) gm/dL MCV (80.0-100.0) fL MCHC (31.0-37.0) g/dL Neutrophils # (1.3-7.7) k/uL Lymphocytes # (1.0-4.8) k/uL BUN 40 H (7-17) mg/dL Creatinine 2.84 H (0.52-1.04) mg/dL Glucose 259 H (74-99) mg/dL POC Glucose (mg/dL) 242 H 377 H (75-99) mg/dL Total Protein 5.3 L (6.3-8.2) g/dL Albumin 2.8 L (3.5-5.0) g/dL 01/05/17 Range/Units 17:14 RBC (3.80-5.40) m/uL Hgb (11.4-16.0) gm/dL MCV (80.0-100.0) fL MCHC (31.0-37.0) g/dL Neutrophils # (1.3-7.7) k/uL Lymphocytes # (1.0-4.8) k/uL BUN (7-17) mg/dL Creatinine (0.52-1.04) mg/dL Glucose (74-99) mg/dL POC Glucose (mg/dL) 263 H (75-99) mg/dL Total Protein (6.3-8.2) g/dL Albumin (3.5-5.0) g/dL Microbiology - Last 24 Hours (Table) 01/03/17 06:51 Gram Stain - Preliminary Peritoneal Fluid Body Fluid Culture - Preliminary Assessment and Plan Plan: #1 abdominal pain likely secondary to mild degree of fluid overload #2 ESRD on PD #3 recent bacterial peritonitis with Klebsiella #4 history of hypertension #5 dyslipidemia #6 acute diarrhea rule out infectious colitis #7 hypokalemia Plan Encourage ambulation. DVT prophylaxis Bp stable. Intraperitoneal abx with rocephin.
--- NOTE | 2017-01-05 19:52 | PN ---
Patient is seen for follow-up for end-stage renal disease. Currently she is maintained on CAPD with 4.25% solutions every 4 hours. Patient had about 2 to 300 mL of UF with each exchange. She was started on IV Lasix yesterday and she seems slightly improved. Abdominal pain is also better. On examination, blood pressure is 136/65, heart rate 76 per minute. She is afebrile. Examination of the heart S1 and S2. Examination of the lungs: Decreased breath sounds in bases. ABDOMEN: Soft mild tenderness noted. Overall improvement. Examination of lower extremities shows chronic skin changes, edema 1+ bilaterally. Labs show potassium 4.0, hemoglobin 10.2. White cell count 10.4. ASSESSMENT: 1. End-stage renal disease, on peritoneal dialysis. Continue current PD exchanges. 2. Volume overload, maintained on IV Lasix, continue current 4.25% solution, volume status is slightly better. 3. CAPD peritonitis currently maintained on IV Rocephin. Fluid cultures had grown Klebsiella pneumonia on previous admission, and urine culture grew E. coli. PLAN: Continue current exchanges.
[2017-01-05 20:12] LABS: Glucose,Whole Blood 219 mg/dL (75-99)
[2017-01-05] MEDS: DIALYSIS DEX INTRAPERIT SCH (21:20)
[2017-01-05] MEDS: CEFTRIAXONE INTRAPERIT SCH (21:20)
[2017-01-05] MEDS: PYRIDOXINE 50 MG TAB PO SCH (21:42)
[2017-01-05] MEDS ORDERED: INSULIN GLARGINE 100 UNIT/ML 10 ML VIAL SQ STA (21:53)
[2017-01-06] MEDS: DIALYSIS (PERITONL) DEX 4.25% 2,000 ML INTRAPERIT SCH ×4 (00:32→14:16)
[2017-01-06] MEDS: HYDROmorphone 1 MG/ML 1 ML SYRINGE IVP PRN ×6 (01:33→20:54)
[2017-01-06 07:06] LABS: Glucose,Whole Blood 334 mg/dL (75-99)
[2017-01-06] MEDS: ACETAMINOPHEN TAB 500 MG TAB PO SCH ×2 (07:55→22:11)
[2017-01-06] MEDS: CHOLECALCIFEROL 1,000 UNIT TAB PO SCH ×2 (07:57→22:11)
[2017-01-06] MEDS: METOPROLOL TARTRATE 50 MG TAB PO SCH ×2 (07:57→22:10)
[2017-01-06] MEDS: FUROSEMIDE 10 MG/ML 10 ML VIAL IV SCH ×2 (07:58→22:12)
[2017-01-06] MEDS: amLODIPine 10 MG TAB PO SCH (07:58)
[2017-01-06] MEDS: ATORVASTATIN 10 MG TAB PO SCH (07:58)
[2017-01-06] MEDS: ALLOPURINOL 100 MG TAB PO SCH (07:58)
[2017-01-06] MEDS: ASPIRIN 81 MG CHEW PO SCH (07:58)
[2017-01-06] MEDS: INSULIN LISPRO (humaLOG) 300 UNIT/3 ML VIAL SQ SCH ×3 (07:59→18:29)
[2017-01-06 08:07] LABS: Basophils % (A) 0 %; CH 34.7; CHCM 30.2; Eosinophils # (A) 0.4 k/uL (0-0.7); Eosinophils % (A) 4 %; HCT 32.9 % (34.0-46.0); HGB 9.9 gm/dL (11.4-16.0); Hypochromasia Marked; Luc # (Auto) 0.22; Luc % (Auto) 2; Lymphocytes # (A) 0.8 k/uL (1.0-4.8); Lymphocytes % (A) 7 %; MCH 34.7 pg (25.0-35.0); MCHC 30.1 g/dL (31.0-37.0); MCV 115.2 fL (80.0-100.0); Macrocytosis Marked; Mean Platelet Volume 8.1; Monocytes # (A) 0.4 k/uL (0-1.0); Monocytes % (A) 4 %; Neutrophils # (A) 8.6 k/uL (1.3-7.7); Neutrophils % (A) 83 %; RBC 2.86 m/uL (3.80-5.40); RDW 14.7 % (11.5-15.5); WBC 10.4 k/uL (3.8-10.6); WBC (Perox) 10.58
[2017-01-06 08:26] LABS: Total Bilirubin 0.4 mg/dL (0.2-1.3); Total Protein 5.1 g/dL (6.3-8.2)
--- NOTE | 2017-01-06 10:49 | PN ---
DATE OF SERVICE: 01/05/2017 Reason for followup is PD catheter and peritonitis. INTERVAL HISTORY: The patient is afebrile, her abdominal pain has slightly improved. The patient denies having any nausea, denies any chest pain or shortness of breath or cough. No diarrhea. On examination, blood pressure 163/83 with a pulse of 82, temperature 98.2, she is 96% on 2 L nasal cannula. General description is an elderly female, up in the bed in no distress. RESPIRATORY SYSTEM: Unlabored breathing. Clear to auscultation anteriorly. HEART: S1, S2, regular rate and rhythm. ABDOMEN: Soft, no significant tenderness. LABS: Hemoglobin is 10.2 with a white count of 10.4 with a BUN of 14, creatinine is 2.84. DIAGNOSTIC IMPRESSION AND PLAN: Patient with PD catheter and peritonitis, currently being treated with Rocephin, which will be continued. We should repeat another white count and culture from the PD fluid. Will be able to finish therapy with p.o. Cipro. Continue supportive care. ELA
[2017-01-06 11:58] LABS: Glucose,Whole Blood 414 mg/dL (75-99)
[2017-01-06] MEDS ORDERED: DIALYSIS (PERITONL) DEX 4.25% 2,500 ML INTRAPERIT SCH (14:00)
--- NOTE | 2017-01-06 15:34 | P.PN ---
Subjective Principal diagnosis: Peritonitis patient feels better today. She has less pain with her exchange today than she had been having. She is afebrile. Objective - Vital Signs Vital signs: Vital Signs Temp 97.2 F L 01/06/17 14:33 Pulse 77 01/06/17 14:33 Resp 16 01/06/17 14:33 BP 133/69 01/06/17 14:33 Pulse Ox 98 01/06/17 08:34 Intake & Output 01/05/17 01/06/17 01/06/17 18:59 06:59 18:59 Intake Total 680 810 Output Total 300 300 Balance 680 510 -300 Weight 98.43 kg 97.721 kg Intake: IV 20 0.9NS 10ML flush 20 Oral 680 790 Output: Urine 300 300 Other: Voiding Method CAPD CAPD CAPD # Voids 2 2 3 # Bowel Movements 1 1 1 - Exam abdomen: Soft, nondistended, mild tenderness - Labs CBC & Chem 7: 01/06/17 07:21 01/06/17 07:21 Labs: Abnormal Lab Results - Last 24 Hours (Table) 01/05/17 01/05/17 01/06/17 Range/Units 17:14 20:10 07:04 RBC (3.80-5.40) m/uL Hgb (11.4-16.0) gm/dL Hct (34.0-46.0) % MCV (80.0-100.0) fL MCHC (31.0-37.0) g/dL Neutrophils # (1.3-7.7) k/uL Lymphocytes # (1.0-4.8) k/uL BUN (7-17) mg/dL Creatinine (0.52-1.04) mg/dL Glucose (74-99) mg/dL POC Glucose (mg/dL) 263 H 219 H 334 H (75-99) mg/dL Total Protein (6.3-8.2) g/dL Albumin (3.5-5.0) g/dL 01/06/17 01/06/17 01/06/17 Range/Units 07:21 07:21 11:53 RBC 2.86 L (3.80-5.40) m/uL Hgb 9.9 L (11.4-16.0) gm/dL Hct 32.9 L (34.0-46.0) % MCV 115.2 H (80.0-100.0) fL MCHC 30.1 L (31.0-37.0) g/dL Neutrophils # 8.6 H (1.3-7.7) k/uL Lymphocytes # 0.8 L (1.0-4.8) k/uL BUN 39 H (7-17) mg/dL Creatinine 2.19 H (0.52-1.04) mg/dL Glucose 342 H (74-99) mg/dL POC Glucose (mg/dL) 414 H (75-99) mg/dL Total Protein 5.1 L (6.3-8.2) g/dL Albumin 2.6 L (3.5-5.0) g/dL Microbiology - Last 24 Hours (Table) 01/03/17 06:51 Gram Stain - Preliminary Peritoneal Fluid Body Fluid Culture - Preliminary Assessment and Plan (1) Peritonitis associated with peritoneal dialysis Narrative/Plan: continue antibiotics. We'll follow Status: Acute
[2017-01-06 16:42] LABS: RBC, Body Fluid 63 /uL
--- NOTE | 2017-01-06 16:46 | PN ---
DATE OF SERVICE: 01/06/2017 REASON FOR FOLLOWUP: PD catheter-associated peritonitis. INTERVAL HISTORY: The patient is afebrile. She is currently breathing comfortably. Abdominal pain has improved. She did have some output with Lasix. Her overall swelling has decreased as well. Patient denies having any chest pain or shortness of breath or cough. On examination, blood pressure is 146/73 with a pulse of 80, temperature 98.2. She is 98% on room air. General description is an elderly female up in the chair in no distress. RESPIRATORY SYSTEM: Unlabored breathing. Clear to auscultation anteriorly. HEART: S1, S2. Regular rate and rhythm. ABDOMEN: Soft. No tenderness. LABS: Hemoglobin is 9.9. White count 10.4 with a BUN of 39, creatinine 2.19. Follow-up peritoneal fluid culture as well as blood culture is negative. DIAGNOSTIC IMPRESSION AND PLAN: Patient with PD catheter-associated peritonitis. Previous culture has been klebsiella. Readmitted to hospital mostly with swelling, for which the patient is currently getting Lasix. She has no fever this admission or elevated white count. At this time I recommend keeping the patient on Rocephin in the dialysis fluid with a plan to finish therapy with oral Cipro. Family present at the bedside. Their questions were answered.
--- NOTE | 2017-01-06 17:16 | P.PN ---
Subjective 76-year-old female who was recently discharged from the hospital after being diagnosed with the catheter related bacteria peritonitis secondary to Klebsiella comes back in the hospital with worsening abdominal pain and weekend. In the last physician patient was maintained on intraperitoneal vancomycin and Fortaz. Patient was also given Zosyn initially thereafter discharged home on ciprofloxacin per susceptibilities. On discharge patient was asked to be maintained on 4.5% dianeal alternating with 1.5% as patient did have 2+ pitting edema and some degree of fluid overload. Patient comes back in the hospital with worsening abdominal pain and weight gain currently denies having any fevers, chills, nausea, vomiting. Is able to tolerate diet this a.m. Denies having any urinary urgency or frequency or burning at this time. On the last admission patient was noted to have a urine culture that is positive however was not treated as patient was asymptomatic. 01/04/17 States pain is slightly improved NO more diarrhea reported No feves, chills, chest pain, navarro nausea, or vomiting reported. Glucose levels were elevated. 01/05/17 No new overnight events States pain is improved Had a bm. no fevers, chills, nausea, vomiting reported. 01/06/17 No new overnight events States her pain is slightly improved no nausea, vomiting, diarrhea. 1 loose stool reported. Objective - Vital Signs Vital signs: Vital Signs Temp 97.7 F 01/06/17 15:00 Pulse 80 01/06/17 15:47 Resp 16 01/06/17 15:47 BP 133/64 01/06/17 15:00 Pulse Ox 98 01/06/17 15:00 Intake & Output 01/05/17 01/06/17 01/06/17 18:59 06:59 18:59 Intake Total 680 810 Output Total 300 600 Balance 680 510 -600 Weight 98.43 kg 97.721 kg Intake: IV 20 0.9NS 10ML flush 20 Oral 680 790 Output: Urine 300 600 Other: Voiding Method CAPD CAPD CAPD # Voids 2 2 3 # Bowel Movements 1 1 1 - Constitutional General appearance: Present: average body habitus, no acute distress - EENT Eyes: Present: PERRLA - Neck Neck: Present: normal ROM - Respiratory Respiratory: bilateral: CTA, negative: dullness, rales, rhonchi - Cardiovascular Rhythm: regular Heart sounds: normal: S1, S2 - Gastrointestinal General gastrointestinal: Present: soft, tenderness. Absent: normal bowel sounds, organomegaly Localized gastrointestinal: tender: midline (PD cath noted.) - Integumentary Integumentary: Present: normal - Neurologic Neurologic: Present: CNII-XII intact. Absent: focal deficits - Psychiatric Psychiatric: Present: A&O x's 3, appropriate affect - Labs CBC & Chem 7: 01/06/17 07:21 01/06/17 07:21 Labs: Abnormal Lab Results - Last 24 Hours (Table) 01/05/17 01/05/17 01/06/17 Range/Units 17:14 20:10 07:04 RBC (3.80-5.40) m/uL Hgb (11.4-16.0) gm/dL Hct (34.0-46.0) % MCV (80.0-100.0) fL MCHC (31.0-37.0) g/dL Neutrophils # (1.3-7.7) k/uL Lymphocytes # (1.0-4.8) k/uL BUN (7-17) mg/dL Creatinine (0.52-1.04) mg/dL Glucose (74-99) mg/dL POC Glucose (mg/dL) 263 H 219 H 334 H (75-99) mg/dL Total Protein (6.3-8.2) g/dL Albumin (3.5-5.0) g/dL 01/06/17 01/06/17 01/06/17 Range/Units 07:21 07:21 11:53 RBC 2.86 L (3.80-5.40) m/uL Hgb 9.9 L (11.4-16.0) gm/dL Hct 32.9 L (34.0-46.0) % MCV 115.2 H (80.0-100.0) fL MCHC 30.1 L (31.0-37.0) g/dL Neutrophils # 8.6 H (1.3-7.7) k/uL Lymphocytes # 0.8 L (1.0-4.8) k/uL BUN 39 H (7-17) mg/dL Creatinine 2.19 H (0.52-1.04) mg/dL Glucose 342 H (74-99) mg/dL POC Glucose (mg/dL) 414 H (75-99) mg/dL Total Protein 5.1 L (6.3-8.2) g/dL Albumin 2.6 L (3.5-5.0) g/dL Microbiology - Last 24 Hours (Table) 01/03/17 06:51 Gram Stain - Preliminary Peritoneal Fluid Body Fluid Culture - Preliminary Assessment and Plan Plan: #1 abdominal pain likely secondary to mild degree of fluid overload #2 ESRD on PD #3 recent bacterial peritonitis with Klebsiellasec to cath related infection. #4 history of hypertension #5 dyslipidemia #6 acute diarrhea rule out infectious colitis #7 hypokalemia Plan Encourage ambulation. DVT prophylaxis Bp stable. Intraperitoneal abx with rocephin. if pain doesnot improve and pt continues to have signs of cath related peritonitis, may need to consider removal of cath.
[2017-01-06 17:28] LABS: Glucose,Whole Blood 365 mg/dL (75-99)
--- NOTE | 2017-01-06 19:17 | PN ---
Patient is seen for follow-up for end-stage renal disease. She was admitted to the hospital with fluid overload and had recurrent abdominal pain after being treated for CAPD peritonitis. The fluid cell count has decreased; however, patient is still requiring pain medications. Her cell count now is about 56. We have not been getting much ultrafiltration with the 4.25% solutions q.4 hours. She has had only about 200 to 500 mL of fluid sometimes and the last couple of exchanges there was no ultrafiltration. Patient is also maintained on IV Lasix in the meantime. I have discussed with her regarding the fact that since she is continues to have abdominal pain, we may need to discontinue the PD catheter and maintain her on temporary hemodialysis with plans to resume the PD in about one month's time especially given the fact that it was gram-negative peritonitis. Patient stated that she will think about it and we will make the final decision tomorrow. She will need to go to [place] for temporary hemodialysis and then she will return back to [place] for her peritoneal dialysis in about one month's time. On examination today, blood pressure is 133/69, heart rate 77 per minute. She is afebrile. Examination of the heart S1 and S2. Examination of the lungs: Bilateral breath sounds are heard. Decreased breath sounds in bases. ABDOMEN: Soft. There is minimal tenderness noted. Examination of lower extremities shows edema 1+ bilaterally. [employer]ER exam is grossly intact. Chronic skin changes are noted in lower extremities. Labs show potassium 4.0, hemoglobin 9.9 g/dL, cell count was 56. ASSESSMENT: 1. End-stage renal disease, maintained on peritoneal dialysis, not getting much ultrafiltration I will decrease to exchanges to q.6 hours, continue with the IV Lasix and we will decide regarding switching her to hemodialysis tomorrow. 2. CAPD peritonitis with the fluid culture that grew Klebsiella pneumonia, currently maintained on IV Rocephin and overall the patient states that she feels better as compared to the initial episode but since this admission. She does not feel significantly improved and continues to require medications for pain. Most likely we will switch her to hemodialysis, and I will make that decision tomorrow. We will plan to resume PD in about one month's time. She will need to be on temporary hemo but out of [place] rather than [place] as that is closer for her.
[2017-01-06 20:35] LABS: Glucose,Whole Blood 384 mg/dL (75-99)
[2017-01-06] MEDS: CEFTRIAXONE INTRAPERIT SCH (20:55)
[2017-01-06] MEDS: DIALYSIS DEX INTRAPERIT SCH (20:55)
[2017-01-06] MEDS: INSULIN GLARGINE 100 UNIT/ML 10 ML VIAL SQ SCH (22:09)
[2017-01-06] MEDS: PYRIDOXINE 50 MG TAB PO SCH (22:11)
[2017-01-06 22:17] LABS: Hemoglobin A1C 7.9 % (4.2-6.1)
[2017-01-07] MEDS: DIALYSIS (PERITONL) DEX 4.25% 2,000 ML INTRAPERIT SCH ×3 (02:22→14:20)
[2017-01-07] MEDS: HYDROmorphone 1 MG/ML 1 ML SYRINGE IVP PRN ×4 (02:23→20:07)
[2017-01-07 07:32] LABS: Glucose,Whole Blood 355 mg/dL (75-99)
[2017-01-07] MEDS: INSULIN LISPRO (humaLOG) 300 UNIT/3 ML VIAL SQ SCH ×3 (08:31→18:10)
[2017-01-07] MEDS: ACETAMINOPHEN TAB 500 MG TAB PO SCH ×2 (08:33→20:11)
[2017-01-07] MEDS ORDERED: CIPROFLOXACIN HCL 250 MG TAB PO SCH (09:00)
[2017-01-07] MEDS: METOPROLOL TARTRATE 50 MG TAB PO SCH ×2 (09:01→20:24)
[2017-01-07] MEDS: ATORVASTATIN 10 MG TAB PO SCH (09:01)
[2017-01-07] MEDS: CHOLECALCIFEROL 1,000 UNIT TAB PO SCH ×2 (09:01→20:25)
[2017-01-07] MEDS: amLODIPine 10 MG TAB PO SCH (09:01)
[2017-01-07] MEDS: ALLOPURINOL 100 MG TAB PO SCH (09:01)
[2017-01-07] MEDS: ASPIRIN 81 MG CHEW PO SCH (09:01)
[2017-01-07] MEDS: FUROSEMIDE 10 MG/ML 10 ML VIAL IV SCH ×2 (09:01→20:24)
--- NOTE | 2017-01-07 11:09 | P.PN ---
Subjective Patient is seen in follow-up for end-stage renal disease. She is currently maintained on peritoneal dialysis. She is being treated for Klebsiella peritonitis with intraperitoneal Rocephin. Her cell count has been trending down however she continues to have abdominal pain and fluid overload. Despite being on 4.25% changes, she is not maintaining a significant net negative fluid balance. Denies vomiting or diarrhea. Vital signs are stable. General: The patient appeared well nourished and normally developed. HEENT: Head exam is unremarkable. Neck is without jugular venous distension. LUNGS: Lungs are clear to auscultation and percussion. Breath sounds decreased. HEART: Rate and Rhythm are regular. First and second heart sounds normal. No murmurs, rubs or gallops. ABDOMEN: Abdominal exam reveals normal bowel sounds. Moderately distended. EXTREMITITES: 1+ edema. Objective - Vital Signs Vital signs: Vital Signs Temp 98.3 F 01/07/17 09:16 Pulse 86 01/07/17 09:16 Resp 16 01/07/17 09:16 BP 154/85 01/07/17 09:16 Pulse Ox 96 01/07/17 09:16 Intake & Output 01/06/17 01/07/17 01/07/17 18:59 06:59 18:59 Intake Total 380 Output Total 600 Balance -600 380 Weight 97.721 kg 214.7 kg Intake: IV 30 0.9NS 10ML flush 30 Oral 350 Output: Urine 600 Other: Voiding Method CAPD CAPD CAPD # Voids 1 1 1 # Bowel Movements 1 - Labs CBC & Chem 7: 01/06/17 07:21 01/06/17 07:21 Labs: Abnormal Lab Results - Last 24 Hours (Table) 01/06/17 01/06/17 01/06/17 Range/Units 07:21 11:53 17:27 POC Glucose (mg/dL) 414 H 365 H (75-99) mg/dL Hemoglobin A1c 7.9 H (4.2-6.1) % 01/06/17 01/07/17 Range/Units 20:31 07:30 POC Glucose (mg/dL) 384 H 355 H (75-99) mg/dL Hemoglobin A1c (4.2-6.1) % Microbiology - Last 24 Hours (Table) 01/03/17 06:51 Gram Stain - Preliminary Peritoneal Fluid Body Fluid Culture - Preliminary Assessment and Plan Plan: Assessment: #1. End-stage renal disease maintained on peritoneal dialysis. #2. Peritonitis with peritoneal fluid culture positive for Klebsiella. Maintained on antibiotics since December 28. #3. Abdominal pain likely related to peritonitis. Continues to require pain medications. #4. Urinary tract infection with urine culture positive for E. coli on December 28. #5. Anemia of chronic kidney disease. #6. Volume overload. Plan: Patient is agreeable to switch to temporary hemodialysis. Will discontinue peritoneal dialysis catheter. Consult vascular surgery for permacath placement. Hemodialysis tomorrow with goal 3 L ultrafiltration. Antibiotics per infectious disease recommendations. data center project manager to help set up outpatient hemodialysis in [place]. Will plan to transition back to peritoneal dialysis in about one month once infection free.
[2017-01-07 11:32] LABS: Glucose,Whole Blood 363 mg/dL (75-99)
--- NOTE | 2017-01-07 14:08 | P.PN ---
Subjective 76-year-old female who was recently discharged from the hospital after being diagnosed with the catheter related bacteria peritonitis secondary to Klebsiella comes back in the hospital with worsening abdominal pain and weekend. In the last physician patient was maintained on intraperitoneal vancomycin and Fortaz. Patient was also given Zosyn initially thereafter discharged home on ciprofloxacin per susceptibilities. On discharge patient was asked to be maintained on 4.5% dianeal alternating with 1.5% as patient did have 2+ pitting edema and some degree of fluid overload. Patient comes back in the hospital with worsening abdominal pain and weight gain currently denies having any fevers, chills, nausea, vomiting. Is able to tolerate diet this a.m. Denies having any urinary urgency or frequency or burning at this time. On the last admission patient was noted to have a urine culture that is positive however was not treated as patient was asymptomatic. 01/04/17 States pain is slightly improved NO more diarrhea reported No feves, chills, chest pain, navarro nausea, or vomiting reported. Glucose levels were elevated. 01/05/17 No new overnight events States pain is improved Had a bm. no fevers, chills, nausea, vomiting reported. 01/06/17 No new overnight events States her pain is slightly improved no nausea, vomiting, diarrhea. 1 loose stool reported. 01/07/2017 States to be doing well however continues to have minimal pain in her abdomen. No diarrhea reported. No fevers, chills, nausea, vomiting reported Objective - Vital Signs Vital signs: Vital Signs Temp 98.3 F 01/07/17 09:16 Pulse 86 01/07/17 09:16 Resp 16 01/07/17 09:16 BP 154/85 01/07/17 09:16 Pulse Ox 96 01/07/17 09:16 Intake & Output 01/06/17 01/07/17 01/07/17 18:59 06:59 18:59 Intake Total 380 Output Total 600 Balance -600 380 Weight 97.721 kg 214.7 kg Intake: IV 30 0.9NS 10ML flush 30 Oral 350 Output: Urine 600 Other: Voiding Method CAPD CAPD CAPD # Voids 1 1 1 # Bowel Movements 1 - Exam Physical exam Gen. appearance oriented 3 in no distress Neck is supple no JVD Lungs good air entry clear to auscultation no rhonchi or wheezing Heart S1-S2 heard regular rate and rhythm no murmurs appreciated Abdomen is soft diffusely tender. Catheter is noted in the right hemiabdomen. Neurologically cranial nerves II-12 grossly intact no focal motor or sensory deficits noted Skin no abnormalities appreciated - Labs CBC & Chem 7: 01/06/17 07:21 01/06/17 07:21 Labs: Abnormal Lab Results - Last 24 Hours (Table) 01/06/17 01/06/17 01/06/17 Range/Units 07:21 17:27 20:31 POC Glucose (mg/dL) 365 H 384 H (75-99) mg/dL Hemoglobin A1c 7.9 H (4.2-6.1) % 01/07/17 01/07/17 Range/Units 07:30 11:30 POC Glucose (mg/dL) 355 H 363 H (75-99) mg/dL Hemoglobin A1c (4.2-6.1) % Microbiology - Last 24 Hours (Table) 01/03/17 06:51 Gram Stain - Final Peritoneal Fluid Body Fluid Culture - Final Assessment and Plan Plan: #1 abdominal pain likely secondary to mild degree of fluid overload #2 ESRD on PD #3 recent bacterial peritonitis with Klebsiellasec to cath related infection. #4 history of hypertension #5 dyslipidemia #6 acute diarrhea rule out infectious colitis #7 hypokalemia Plan PD catheter will be removed. Vascular surgery consult for placement of a tunneled catheter. Outpatient hemodialysis set up. We'll continue ciprofloxacin for Klebsiella catheter associated bacterial peritonitis Hemodialysis plans per nephrology.
[2017-01-07] MEDS ORDERED: INSULIN REGULAR 100 UNIT/ML VIAL IV ONE (14:09)
[2017-01-07] MEDS ORDERED: CIPROFLOXACIN HCL 500 MG TAB PO SCH (15:42)
[2017-01-07] MEDS ORDERED: fentaNYL (PF) 50 MCG/ML 2 ML AMP IV ONE (15:51)
[2017-01-07] MEDS ORDERED: LIDOCAINE 2% INJ 20 MG/ML SQ ONE (15:53)
[2017-01-07] MEDS ORDERED: SODIUM CHLORIDE 0.9% 500 ML IV ONE (15:58)
[2017-01-07] MEDS ORDERED: CIPROFLOXACIN HCL 250 MG TAB PO ONE (16:00)
[2017-01-07] MEDS ORDERED: HEPARIN SODIUM 1,000 UNIT/ML VIAL MISCELLANE ONE (16:16)
--- NOTE | 2017-01-07 16:22 | P.GSCN ---
History of Present Illness History of present illness: 76-year-old white female, consulted for placement of dialysis catheter this patient has been coming dialysis infected and a care of Dr. Moreno Medical history history of diabetes, history of hypertension, history of chronic renal failure, Surgical history patient had a peritoneal dialysis for dialysis Neck examination neck is supple no bruit appreciated patient had a right shoulder surgery done in the past Chest is clear first and second sound normal Abdomen mild tenderness there is a peritoneal dialysis catheter Vascular examination brachial radial and femoral pulses are present Plan is placement placement of the dialysis catheter risk and complication discussed with the patient Past Medical History Past Medical History: Heart Failure, Diabetes Mellitus, Hyperlipidemia, Hypertension, Myocardial Infarction ([place]), Renal Disease Additional Past Medical History / Comment(s): ,11/27/15 Pt is a transfer from [facility] to [facility] for CHF, renal failure. Pt presented today to [facility] with MAYRA x 5 days and getting worse. She has a dry cough. 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 Peritonitis Last Myocardial Infarction Date:: unkn- 30 or more yrs ago per EKG History of Any Multi-Drug Resistant Organisms: None Reported Past Surgical History: Back Surgery, Orthopedic Surgery Additional Past Surgical History / Comment(s): 08/31/15 EGD with bx and colonoscopy with ulcerative polyp, right shoulder surgery - humerus ORIF, left ankle ORIF, low back surgery, multiple pain procedures, L cataract removal, R knee arthroscopy. Past Anesthesia/Blood Transfusion Reactions: No Reported Reaction Additional Past Anesthesia/Blood Transfusion Reaction / Comm: Pt states she has received blood in the past without reaction. Past Psychological History: No Psychological Hx Reported Additional Psychological History / Comment(s): Pt resides with her spouse. She is independent. She does not use any assistive device. She drives. Smoking Status: Never smoker Past Alcohol Use History: None Reported Past Drug Use History: None Reported - Past Family History Sister(s) Family Medical History: Cancer Additional Family Medical History / Comment(s): Ovarian cancer Brother(s) Family Medical History: Cancer Additional Family Medical History / Comment(s): colon Mother Family Medical History: Diabetes Mellitus Additional Family Medical History / Comment(s): Mother in her 80's Father History Unknown: Yes Additional Family Medical History / Comment(s): Father had a bowel obstruction. He at 84 yrs. Medications and Allergies Home Medications Medication Instructions Recorded Confirmed Type Cholecalciferol [Vitamin D3] 1,000 unit PO BID 08/24/15 01/03/17 History Lovastatin [Mevacor] 10 mg PO DAILY 08/24/15 01/03/17 History Metoprolol Tartrate [Lopressor] 100 mg PO BID 08/24/15 01/03/17 History amLODIPine [Norvasc] 10 mg PO DAILY 08/24/15 01/03/17 History Allopurinol [Zyloprim] 100 mg PO DAILY 11/27/15 01/03/17 History Cyanocobalamin [Vitamin B-12] 1,000 mcg PO HS 11/27/15 01/03/17 History Insulin Glargine [Lantus] 76 unit SQ HS 11/27/15 01/03/17 History Pyridoxine [Vitamin B-6] 100 mg PO HS 11/27/15 01/03/17 History Acetaminophen [Tylenol] 500 mg PO BID 02/06/16 01/03/17 History Aspirin EC [Ecotrin Low Dose] 81 mg PO DAILY 01/03/17 01/03/17 History Furosemide [Lasix] 80 mg PO BID 01/03/17 01/03/17 History Insulin Lispro [humaLOG] 10 units SQ AC-BID 01/03/17 01/03/17 History Allergies Allergy/AdvReac Type Severity Reaction Status Date / Time No Known Allergies Allergy Verified 12/28/16 11:24 Surgical - Exam Vital Signs Temp Pulse Resp BP Pulse Ox 98.1 F 94 20 122/63 95 01/02/17 23:57 01/02/17 23:57 01/02/17 23:57 01/02/17 23:57 01/02/17 23:57 Results - Labs 01/06/17 07:21 01/06/17 07:21 Abnormal Lab Results - Last 24 Hours (Table) 01/06/17 01/06/17 01/06/17 Range/Units 07:21 17:27 20:31 POC Glucose (mg/dL) 365 H 384 H (75-99) mg/dL Hemoglobin A1c 7.9 H (4.2-6.1) % 01/07/17 01/07/17 Range/Units 07:30 11:30 POC Glucose (mg/dL) 355 H 363 H (75-99) mg/dL Hemoglobin A1c (4.2-6.1) % Microbiology - Last 24 Hours (Table) 01/03/17 06:51 Gram Stain - Final Peritoneal Fluid Body Fluid Culture - Final Diabetes panel 01/06/17 Range/Units 07:21 Hemoglobin A1c 7.9 H (4.2-6.1) %
--- NOTE | 2017-01-07 16:25 | P.PCN ---
Description of Procedure: Preoperative diagnoses is acute chronic renal failure infected peritoneal dialysis catheter Procedure placement of the 28 same dialysis catheter ultrasound-guided right jugular approach Patient brought to the Business Assistant right side of the neck and chest was prepped and draped applied sterile manner 1% lidocaine was infiltrated neck and chest area micropuncture introducer right internal jugular vein micropuncture guidewire was passed a 4-Welsh catheter advanced. With guidewire and the guidewire was passed and parked in the inferior vena cava up to that dilator were advanced. With the guidewire and sheath was advanced on the top of the guidewire through the sheath we introduced the dialysis catheter sheath was removed and tip of the catheter was at the junction of superior vena cava and atrium flushed with heparin saline and catheter was secured with nylon dressing applied patient tolerated the procedure well
[2017-01-07 17:03] LABS: Glucose,Whole Blood 288 mg/dL (75-99)
--- NOTE | 2017-01-07 17:22 | IR ---
Fluoroscopy HISTORY: Pain 1.1 minute fluoroscopy time supplied to the referring clinician. 137 intraoperative C-arm images doc ument the procedure. See dictated report from vascular surgery.
--- NOTE | 2017-01-07 17:26 | XR ---
EXAMINATION TYPE: XR chest 1V portable DATE OF EXAM: 01/07/2017 5:11 PM COMPARISON: Prior chest x-ray 30 December 2016 HISTORY: Permacath placement TECHNIQUE: Single frontal view of the chest is obtained. FINDINGS: There is been interval placement of a right jugular central venous catheter, distal tip is in the right atrium. There is some improvement in aeration. No evident pneumothorax. No sizable effu caitlyn. IMPRESSION: No evident complication status post permacath placement
--- NOTE | 2017-01-07 19:31 | PN ---
DATE OF SERVICE: 01/07/2017 Reason for follow-up is PD catheter associated peritonitis. INTERVAL HISTORY: The patient is afebrile. The patient continues to have decreased output from her peritoneal dialysis exchanges. She is currently in the process of being switched to hemodialysis. Patient's main symptom has been swelling. Abdominal pain is currently controlled. Denies any chest pain or shortness of breath or cough. On examination, blood pressure 144/65 with a pulse of 54, temperature 98.5. She is 97% on 2-L nasal cannula. General description is an elderly female up in the bed in no distress. RESPIRATORY SYSTEM: Unlabored breathing. Clear to auscultation anteriorly. HEART: S1, S2. Regular rate and rhythm. ABDOMEN: Soft. EXTREMITIES: No edema of feet. LABS: No new lab has been obtained today. The peritoneal fluid cultures so far are negative. DIAGNOSTIC IMPRESSION AND PLAN: PD catheter associated peritonitis. Patient's previous culture has been klebsiella, here the culture so far negative. Patient currently on Rocephin in her dialysis bag in addition to p.o. Cipro; dose to be adjusted to 500 daily, which needs to continue for another 10 days. Once the patient is switched to hemodialysis the Rocephin in the dialysis catheter will be discontinued. Family present at bedside. Their questions were answered.
[2017-01-07] MEDS: DIALYSIS DEX INTRAPERIT SCH (19:58)
[2017-01-07] MEDS: CEFTRIAXONE INTRAPERIT SCH (19:58)
[2017-01-07] MEDS: PYRIDOXINE 50 MG TAB PO SCH (20:24)
[2017-01-07] MEDS: INSULIN GLARGINE 100 UNIT/ML 10 ML VIAL SQ SCH (20:42)
[2017-01-07 20:55] LABS: Glucose,Whole Blood 220 mg/dL (75-99)
[2017-01-07] MEDS ORDERED: INSULIN DETEMIR 100 UNIT/ML 10 ML VIAL SQ SCH (21:00)
[2017-01-08] MEDS: HYDROmorphone 1 MG/ML 1 ML SYRINGE IVP PRN ×3 (02:06→21:36)
[2017-01-08] MEDS: DIALYSIS (PERITONL) DEX 4.25% 2,000 ML INTRAPERIT SCH ×2 (02:42→11:29)
[2017-01-08] MEDS: INSULIN LISPRO (humaLOG) 300 UNIT/3 ML VIAL SQ SCH ×3 (07:58→18:49)
[2017-01-08 07:59] LABS: Glucose,Whole Blood 223 mg/dL (75-99)
[2017-01-08] MEDS: FUROSEMIDE 10 MG/ML 10 ML VIAL IV SCH ×2 (07:59→20:13)
[2017-01-08] MEDS: ACETAMINOPHEN TAB 500 MG TAB PO SCH ×2 (08:00→20:07)
[2017-01-08] MEDS: ASPIRIN 81 MG CHEW PO SCH (08:00)
[2017-01-08] MEDS: ALLOPURINOL 100 MG TAB PO SCH (08:00)
[2017-01-08] MEDS: amLODIPine 10 MG TAB PO SCH (08:00)
[2017-01-08] MEDS: CHOLECALCIFEROL 1,000 UNIT TAB PO SCH ×2 (08:01→21:36)
[2017-01-08] MEDS: ATORVASTATIN 10 MG TAB PO SCH (08:01)
[2017-01-08 08:26] LABS: Basophils % (A) 0 %; CH 34.8; CHCM 31.5; Eosinophils # (A) 0.4 k/uL (0-0.7); Eosinophils % (A) 3 %; HCT 32.5 % (34.0-46.0); HDW 3.23; HGB 9.9 gm/dL (11.4-16.0); Hypochromasia Slight; Luc # (Auto) 0.23; Luc % (Auto) 2; Lymphocytes # (A) 0.7 k/uL (1.0-4.8); Lymphocytes % (A) 6 %; MCHC 30.5 g/dL (31.0-37.0); MCV 111.2 fL (80.0-100.0); Macrocytosis Marked; Mean Platelet Volume 7.8; Monocytes # (A) 0.6 k/uL (0-1.0); Monocytes % (A) 5 %; Neutrophils # (A) 8.9 k/uL (1.3-7.7); Neutrophils % (A) 83 %; RBC 2.92 m/uL (3.80-5.40); RDW 14.3 % (11.5-15.5); WBC 10.7 k/uL (3.8-10.6); WBC (Perox) 11.68
[2017-01-08 08:33] LABS: Calcium 8.7 mg/dL (8.4-10.2); Total Bilirubin 0.5 mg/dL (0.2-1.3); Total Protein 5.5 g/dL (6.3-8.2)
[2017-01-08 08:35] LABS: Potassium 3.6 mmol/L (3.5-5.1)
[2017-01-08] MEDS ORDERED: CIPROFLOXACIN HCL 500 MG TAB PO SCH (09:00)
--- NOTE | 2017-01-08 12:09 | P.PN ---
Subjective Principal diagnosis: Peritonitis Patient doing well today. She is currently having hemodialysis. Decision to remove catheter was made yesterday. Pain is mild. Objective - Vital Signs Vital signs: Vital Signs Temp 98.1 F 01/08/17 07:00 Pulse 76 01/08/17 08:00 Resp 18 01/08/17 08:00 BP 155/79 01/08/17 07:00 Pulse Ox 94 L 01/08/17 07:00 Intake & Output 01/07/17 01/08/17 01/08/17 18:59 06:59 18:59 Intake Total 50 Output Total 300 Balance -300 50 Weight 97.267 kg Intake: Oral 50 Output: Urine 300 Other: Voiding Method CAPD CAPD CAPD # Voids 4 1 # Bowel Movements 2 - Exam Abdomen: Soft, nondistended, mild tenderness lower abdomen - Labs CBC & Chem 7: 01/08/17 07:43 01/08/17 07:43 Labs: Abnormal Lab Results - Last 24 Hours (Table) 01/07/17 01/07/17 01/08/17 Range/Units 17:00 20:34 07:43 WBC 10.7 H (3.8-10.6) k/uL RBC 2.92 L (3.80-5.40) m/uL Hgb 9.9 L (11.4-16.0) gm/dL Hct 32.5 L (34.0-46.0) % MCV 111.2 H (80.0-100.0) fL MCHC 30.5 L (31.0-37.0) g/dL Neutrophils # 8.9 H (1.3-7.7) k/uL Lymphocytes # 0.7 L (1.0-4.8) k/uL Chloride (98-107) mmol/L BUN (7-17) mg/dL Creatinine (0.52-1.04) mg/dL Glucose (74-99) mg/dL POC Glucose (mg/dL) 288 H 220 H (75-99) mg/dL Alkaline Phosphatase (38-126) U/L Total Protein (6.3-8.2) g/dL Albumin (3.5-5.0) g/dL 01/08/17 01/08/17 Range/Units 07:43 07:57 WBC (3.8-10.6) k/uL RBC (3.80-5.40) m/uL Hgb (11.4-16.0) gm/dL Hct (34.0-46.0) % MCV (80.0-100.0) fL MCHC (31.0-37.0) g/dL Neutrophils # (1.3-7.7) k/uL Lymphocytes # (1.0-4.8) k/uL Chloride 97 L (98-107) mmol/L BUN 36 H (7-17) mg/dL Creatinine 1.63 H (0.52-1.04) mg/dL Glucose 233 H (74-99) mg/dL POC Glucose (mg/dL) 223 H (75-99) mg/dL Alkaline Phosphatase 197 H (38-126) U/L Total Protein 5.5 L (6.3-8.2) g/dL Albumin 2.9 L (3.5-5.0) g/dL Microbiology - Last 24 Hours (Table) 01/03/17 06:51 Gram Stain - Final Peritoneal Fluid Body Fluid Culture - Final Assessment and Plan (1) Peritonitis associated with peritoneal dialysis Narrative/Plan: We'll plan perineal dialysis catheter removal tomorrow. Will drain abdomen at this time. Status: Acute
[2017-01-08 12:11] LABS: Glucose,Whole Blood 148 mg/dL (75-99)
[2017-01-08] MEDS: METOPROLOL TARTRATE 50 MG TAB PO SCH ×2 (14:45→20:14)
--- NOTE | 2017-01-08 16:24 | PN ---
Patient is seen for followup for end-stage renal disease. She did have a Perm-A-Cath placed yesterday and is scheduled for her first treatment of hemodialysis today. The PD catheter will be discontinued tomorrow. Patient continues to have some shortness of breath. Her abdominal pain is controlled with pain medications. On examination, blood pressure is 155/79, heart rate 76 per minute. She is afebrile. EXAMINATION OF THE HEART: S1 and S2. EXAMINATION OF THE LUNGS: Bilateral breath sounds are heard. Decreased breath sounds in bases. ABDOMEN: Soft with minimal tenderness. Examination of the lower extremities shows edema 2+ bilaterally. Labs show sodium 141, potassium 3.6. Hemoglobin 9.9. Albumin 2.9. ASSESSMENT: 1. End-stage renal disease. Patient will be switching to hemodialysis temporarily. 2. CAPD peritonitis with klebsiella with repeat fluid count showing improved cell count with repeat cultures being negative; however, in view of ongoing issues with abdominal pain, we have decided to discontinue the PD catheter and switch to temporary hemodialysis for about a month. 3. Volume overload. Expect further improvement with hemodialysis and ultrafiltration. 4. Urinary tract infection from last admission, maintained on Cipro. PLAN: Hemodialysis today as well as in a.m. The horse racer will have to arrange for chair time at [place], which is closer to where they live. After about a month patient will switch back to [place] for resuming PD.
--- NOTE | 2017-01-08 16:40 | PN ---
DATE OF SERVICE: 01/08/2017 REASON FOR FOLLOWUP: Klebsiella pneumoniae PD catheter-associated peritonitis. INTERVAL HISTORY: The patient is afebrile. Patient did get a hemodialysis catheter; is getting dialyzed. The patient denies significant chest pain. No shortness of breath. No cough or abdominal pain no worsening. On examination, blood pressure is 155/79 with a pulse of 76, temperature 98.1. She is 94% on 2 L nasal cannula. General description is an elderly female lying in bed in no distress. RESPIRATORY SYSTEM: Unlabored breathing. Clear to auscultation anteriorly. HEART: S1, S2. Regular rate and rhythm. ABDOMEN: Soft. LABS: Hemoglobin is 9.9, white count 10.7. BUN of 36. Creatinine is 1.63. DIAGNOSTIC IMPRESSION AND PLAN: Patient with Klebsiella pneumoniae peritoneal catheter-associated peritonitis. Patient admitted to hospital mostly with fluid overload; is currently being dialyzed for the same. Patient will continue on p.o. Cipro 500 every 18 hours for another 10 days. Will discontinue the Rocephin, as the peritoneal dialysis has been discontinued. Continue supportive care. MTDD
[2017-01-08 18:14] LABS: Glucose,Whole Blood 174 mg/dL (75-99)
[2017-01-08] MEDS ORDERED: INSULIN LISPRO (humaLOG) 300 UNIT/3 ML VIAL SQ ONE (19:45)
[2017-01-08 20:11] LABS: Glucose,Whole Blood 143 mg/dL (75-99)
[2017-01-08] MEDS: INSULIN GLARGINE 100 UNIT/ML 10 ML VIAL SQ SCH (20:11)
[2017-01-08] MEDS: PYRIDOXINE 50 MG TAB PO SCH (20:13)
--- NOTE | 2017-01-08 22:44 | PN ---
A 76-year-old came peritonitis secondary to peritoneal dialysis catheter. Patient grew Klebsiella for which patient is on ciprofloxacin and the peritoneal dialysis catheter will be removed tomorrow and patient was initiated on hemodialysis today and plan to run hemodialysis tomorrow. REVIEW OF SYSTEMS: CARDIOVASCULAR: No chest pain, no orthopnea, no PND, no palpitations. PULMONARY: Denied any shortness of breath. No cough or hemoptysis. GASTROINTESTINAL: No diarrhea, nausea or vomiting. No abdominal pain. Normoactive bowel sounds. NEUROLOGIC: No headaches, no weakness, no numbness. Medications are reviewed. PHYSICAL EXAMINATION: VITAL SIGNS: Temperature 98.1, pulse of 76, respiratory rate of 18, blood pressure is 116/59, saturating at 95% on 2L of O2 by nasal cannula. GENERAL: The patient is alert and oriented x3, not in any acute distress. Well developed, well nourished. HEENT: Pupils are round and equally reacting to light. EOMI. No scleral icterus. No conjunctival pallor. Normocephalic, atraumatic. No pharyngeal erythema. No thyromegaly. CARDIOVASCULAR: S1 and S2 present. No murmurs, rubs, or gallops. PULMONARY: Chest is clear to auscultation, no wheezing or crackles. ABDOMEN: Tenderness improved. Peritoneal dialysis catheter in the right hemidiaphragm. MUSCULOSKELETAL: No joint swelling or deformity. EXTREMITIES: No cyanosis, clubbing, or pedal edema. NEUROLOGICAL: Gross neurological examination did not reveal any focal deficits. SKIN: No rashes. LABORATORY DATA: CBC, CMP are abnormal for elevated BUN and creatinine of 36 and 1.6, respectively. Blood glucose continues to be elevated. I will increase the pre-meal insulin 15 from 10 units. Hemoglobin is 9.9. ASSESSMENT AND PLAN: 1. Bacterial peritonitis secondary to catheter-related infection leading to abdominal pain. 2. Mild degree of fluid overload secondary to end-stage renal disease. 3. End-stage renal disease on peritoneal dialysis, now initiated on hemodialysis. 4. Hypertension. 5. Dyslipidemia. 6. Diabetes mellitus. Uncontrolled blood sugars. 7. Hypokalemia. Potassium supplemented as per Nephrology. 8. Metabolic bone disease. 9. Anemia of chronic kidney disease. PLAN: As mentioned above, continue with antibiotics. Hemodialysis tomorrow. Peritoneal dialysis catheter will be removed tomorrow. Possibility of discharge tomorrow or day after.
[2017-01-09] MEDS ORDERED: CIPROFLOXACIN HCL 500 MG TAB PO SCH (06:00)
[2017-01-09 07:19] LABS: Glucose,Whole Blood 86 mg/dL (75-99)
[2017-01-09] MEDS: ACETAMINOPHEN TAB 500 MG TAB PO SCH (08:15)
[2017-01-09] MEDS: ASPIRIN 81 MG CHEW PO SCH (08:15)
[2017-01-09] MEDS: CHOLECALCIFEROL 1,000 UNIT TAB PO SCH ×2 (08:15→21:22)
[2017-01-09] MEDS: INSULIN LISPRO (humaLOG) 300 UNIT/3 ML VIAL SQ SCH ×3 (08:16→18:26)
[2017-01-09] MEDS: ALLOPURINOL 100 MG TAB PO SCH (08:16)
[2017-01-09] MEDS: METOPROLOL TARTRATE 50 MG TAB PO SCH ×2 (08:23→21:22)
[2017-01-09] MEDS: FUROSEMIDE 10 MG/ML 10 ML VIAL IV SCH ×2 (08:23→21:22)
[2017-01-09 11:07] LABS: Glucose,Whole Blood 68 mg/dL (75-99)
[2017-01-09] MEDS ORDERED: DEXTROSE 50%-WATER 50 ML SYRINGE IVP STA (11:13)
--- NOTE | 2017-01-09 11:15 | P.PN ---
Subjective Patient is seen in follow-up for end-stage renal disease. She was maintained on peritoneal dialysis and has now transitioned over to hemodialysis. She underwent first treatment of hemodialysis yesterday and is currently undergoing second treatment. She continues to have abdominal discomfort. She is being treated for Klebsiella peritonitis with R IVocephin. no vomiting or diarrhea. Vital signs are stable. General: The patient appeared well nourished and normally developed. HEENT: Head exam is unremarkable. Neck is without jugular venous distension. LUNGS: Lungs are clear to auscultation and percussion. Breath sounds decreased. HEART: Rate and Rhythm are regular. First and second heart sounds normal. No murmurs, rubs or gallops. ABDOMEN: Abdominal exam reveals normal bowel sounds. Moderately distended. EXTREMITITES: 1+ edema. Objective - Vital Signs Vital signs: Vital Signs Temp 98.2 F 01/09/17 07:00 Pulse 79 01/09/17 08:00 Resp 18 01/09/17 08:00 BP 134/63 01/09/17 07:00 Pulse Ox 96 01/09/17 07:00 Intake & Output 01/08/17 01/09/17 01/09/17 18:59 06:59 18:59 Intake Total 120 400 Balance 120 400 Weight 95 kg Intake: Oral 120 400 Other: Voiding Method CAPD CAPD # Voids 0 - Labs CBC & Chem 7: 01/08/17 07:43 01/08/17 07:43 Labs: Abnormal Lab Results - Last 24 Hours (Table) 01/08/17 01/08/17 01/08/17 Range/Units 12:09 18:12 20:10 POC Glucose (mg/dL) 148 H 174 H 143 H (75-99) mg/dL 01/09/17 Range/Units 11:02 POC Glucose (mg/dL) 68 L (75-99) mg/dL Assessment and Plan Plan: Assessment: #1. End-stage renal disease now maintained on hemodialysis. #2. Peritonitis with peritoneal fluid culture positive for Klebsiella. Maintained on antibiotics since December 28. #3. Abdominal pain likely related to peritonitis. Continues to require pain medications. #4. Urinary tract infection with urine culture positive for E. coli on December 28. #5. Anemia of chronic kidney disease. #6. Volume overload. Plan: Currently undergoing hemodialysis. Goal 2 L ultrafiltration. Schedule next treatment for tomorrow. Antibiotics per infectious disease recommendations. camp manager to help set up outpatient hemodialysis in [place]. Will plan to transition back to peritoneal dialysis in about one month once infection free. Scheduled to get peritoneal dialysis catheter discontinued today.
[2017-01-09] MEDS ORDERED: HEPARIN SODIUM,PORCINE 5,000 UNIT/ML 1 ML VIAL ONE (11:30)
[2017-01-09 11:44] LABS: Glucose,Whole Blood 91 mg/dL (75-99)
--- NOTE | 2017-01-09 12:32 | PN ---
DATE OF SERVICE: 01/09/2017 Reason for follow up is PD catheter-associated peritonitis. INTERVAL HISTORY: The patient is afebrile. She is currently getting her hemodialysis. She did have 1 to 2 L of fluid removed yesterday with plans for about ( ) L today. Patient still has significant swelling of her legs. Abdominal pain is currently controlled. Patient denies having any chest pain or shortness of breath or cough. On examination, blood pressure is 134/63 with a pulse of 79, temperature 98.2. She is 96% on 2 L nasal cannula. General description is an elderly female, lying in bed in no distress. RESPIRATORY SYSTEM: Unlabored breathing. Clear to auscultation anteriorly. HEART: S1, S2. Regular rate and rhythm. ABDOMEN: Soft. EXTREMITIES: 2+ edema of the feet. LABS: Hemoglobin is 9.9, white count 10.7 as of yesterday. DIAGNOSTIC IMPRESSION AND PLAN: Patient with a PD catheter associated peritonitis. Previous culture had been Klebsiella. Culture at this time has been negative. At this time, the patient will continue on p.o. Cipro for another 10 days to finish a course of therapy. Continue with supportive care.
[2017-01-09] MEDS ORDERED: SODIUM CHLORIDE 0.9% 500 ML IV ONE (12:45)
[2017-01-09] MEDS ORDERED: PROPOFOL 10 MG/ML 20 ML VIAL IV ONE (12:48)
[2017-01-09] MEDS ORDERED: LIDOCAINE 1% INJ 10MG/ML (20 ML MDV) ONE (12:48)
[2017-01-09] MEDS ORDERED: fentaNYL (PF) 50 MCG/ML 2 ML AMP ONE (12:48)
[2017-01-09] MEDS ORDERED: ONDANSETRON 4 MG/2 ML VIAL ONE (12:48)
[2017-01-09] MEDS ORDERED: MIDAZOLAM 2 MG/2 ML VIAL ONE (12:48)
[2017-01-09 12:49] LABS: Hepatitis B Surface Ag Index 0.08
[2017-01-09 12:55] LABS: Hepatitis B Core IgM Index 0.04
[2017-01-09] MEDS ORDERED: BUPIVACAIN-EPI 0.25%-1:200,000 30 ML VIAL SQ ONE (13:05)
[2017-01-09 13:07] LABS: Hepatitis C Virus IgG Index 0.01
[2017-01-09 13:10] LABS: Hepatitis C Virus IgG Ab Negative (Negative)
--- NOTE | 2017-01-09 13:28 | P.PCN ---
Date of Procedure: 01/09/17 Procedure(s) Performed: PREOPERATIVE DIAGNOSIS: Renal failure with peritonitis POSTOPERATIVE DIAGNOSIS: Same PROCEDURE: PD cath removal SURGEON: Teresa EBL: 2 mL ANESTHESIA: Sedation and local COMPLICATIONS: None OPERATIVE PROCEDURE: Patient was placed in the supine position. The abdomen was prepped and draped in usual sterile fashion. The previous paramedian incision was re-incised after localizing the skin. The subcutaneous tissues were divided using electrocautery. Blunt dissection around the cuff that was present at the fascia and peritoneum took place. The cuff was fully mobilized. The catheter was removed from the perineal cavity. The outer cuff was dissected from the saphenous fascia using electrocautery. The catheter was cut on the other side of that cuff and the catheter was removed. The fascial defect was closed using a single [id number] 0 Vicryl stitch. The subcutaneous tissues were closed using 3-0 Vicryl sutures and the skin using 4- 0 Monocryl sutures. Steri-Strips and sterile dressings were applied. DISPOSITION: Stable to recovery room
[2017-01-09] MEDS ORDERED: DEXTROSE 50%-WATER 50 ML SYRINGE IVP ONE (13:46)
[2017-01-09 13:52] LABS: Glucose,Whole Blood 67 mg/dL (75-99)
[2017-01-09 13:59] LABS: Glucose,Whole Blood 131 mg/dL (75-99)
[2017-01-09] MEDS: ATORVASTATIN 10 MG TAB PO SCH (14:35)
[2017-01-09] MEDS: amLODIPine 10 MG TAB PO SCH (14:35)
--- NOTE | 2017-01-09 16:03 | PN ---
Patient is a 76-year-old admitted secondary to mweuqspmpi-kygixfpx-[id number]-related peritonitis which showed klebsiella, for which patient is on ciprofloxacin. Patient was initiated on hemodialysis, and Nephrology is planning on hemodialysis today and tomorrow. REVIEW OF SYSTEMS: CARDIOVASCULAR: No chest pain, no orthopnea, no PND, no palpitations. PULMONARY: Denied any shortness of breath. No cough or hemoptysis. GASTROINTESTINAL: No diarrhea, nausea or vomiting. No abdominal pain. Normoactive bowel sounds. NEUROLOGIC: No headaches, no weakness, no numbness. Medications are reviewed. PHYSICAL EXAMINATION: VITAL SIGNS: Temperature 98.9, pulse of 65, respiratory rate of 18. Blood pressure is 144/69. Saturating at 95% on room air. GENERAL: The patient is alert and oriented x3, not in any acute distress. Well developed, well nourished. HEENT: Pupils are round and equally reacting to light. EOMI. No scleral icterus. No conjunctival pallor. Normocephalic, atraumatic. No pharyngeal erythema. No thyromegaly. CARDIOVASCULAR: S1 and S2 present. No murmurs, rubs, or gallops. PULMONARY: Chest is clear to auscultation, no wheezing or crackles. ABDOMEN: Patient still has peritoneal dialysis catheter in right hemidiaphragm. Minimal tenderness was appreciated. Bowel sounds are present. Patient is going to peritoneal dialysis catheter removal today. MUSCULOSKELETAL: No joint swelling or deformity. EXTREMITIES: No cyanosis, clubbing, or pedal edema. NEUROLOGICAL: Gross neurological examination did not reveal any focal deficits. SKIN: No rashes. Laboratory data were reviewed. ASSESSMENT AND PLAN: 1. Bacterial peritonitis secondary to sbdingsxss-wbuwrkhr-dxwpasbz-related infection. She is on Cipro. Ascitic fluid is significant for klebsiella. 2. Mild degree of fluid overload secondary to end-stage renal disease. Will undergo hemodialysis today and tomorrow. 3. End-stage renal disease; was on peritoneal dialysis. Now on hemodialysis. 4. Hypertension. 5. Dyslipidemia. 6. Hypokalemia. 7. Metabolic bone disease. 8. Anemia of chronic kidney disease. PLAN: Continue with present antibiotics. Hemodialysis today and tomorrow. Possibility of discharge tomorrow after hemodialysis once we are able to set up hemodialysis as an outpatient for her.
[2017-01-09 16:57] LABS: Glucose,Whole Blood 103 mg/dL (75-99)
[2017-01-09 20:20] LABS: Glucose,Whole Blood 144 mg/dL (75-99)
[2017-01-09] MEDS: HYDROmorphone 1 MG/ML 1 ML SYRINGE IVP PRN (21:10)
[2017-01-09] MEDS: PYRIDOXINE 50 MG TAB PO SCH (21:22)
[2017-01-10] MEDS: ACETAMINOPHEN TAB 500 MG TAB PO SCH ×3 (00:37→20:47)
[2017-01-10] MEDS: INSULIN GLARGINE 100 UNIT/ML 10 ML VIAL SQ SCH ×2 (00:37→20:46)
[2017-01-10 02:32] LABS: Glucose,Whole Blood 114 mg/dL (75-99)
[2017-01-10] MEDS: HYDROmorphone 1 MG/ML 1 ML SYRINGE IVP PRN ×4 (02:47→20:47)
[2017-01-10 07:28] LABS: Glucose,Whole Blood 100 mg/dL (75-99)
[2017-01-10] MEDS: CIPROFLOXACIN HCL 500 MG TAB PO SCH (07:28)
[2017-01-10] MEDS: CHOLECALCIFEROL 1,000 UNIT TAB PO SCH ×2 (07:28→20:48)
[2017-01-10] MEDS: ASPIRIN 81 MG CHEW PO SCH (07:28)
[2017-01-10] MEDS: ATORVASTATIN 10 MG TAB PO SCH (07:28)
[2017-01-10] MEDS: ALLOPURINOL 100 MG TAB PO SCH (07:29)
[2017-01-10] MEDS: METOPROLOL TARTRATE 50 MG TAB PO SCH ×2 (07:29→21:51)
[2017-01-10] MEDS: amLODIPine 10 MG TAB PO SCH (07:29)
--- NOTE | 2017-01-10 08:18 | P.PN ---
Subjective Principal diagnosis: Peritonitis Patient feels well this morning. Denies pain. A small amount of strikethrough bleeding earlier today. The dressings are changed and they're currently dry. Objective - Vital Signs Vital signs: Vital Signs Temp 98.1 F 01/10/17 07:00 Pulse 63 01/10/17 07:00 Resp 18 01/10/17 07:00 BP 108/56 01/10/17 07:00 Pulse Ox 93 L 01/10/17 07:00 Intake & Output 01/09/17 01/10/17 01/10/17 18:59 06:59 18:59 Intake Total 150 300 Output Total 3 Balance 147 300 Weight 95 kg Intake: IV 150 Oral 0 300 Output: Estimated Blood Loss 3 Other: Voiding Method CAPD CAPD # Voids 0 1 # Bowel Movements 1 - Exam Abdomen: Soft, nondistended, mild tenderness at the incision site, no bleeding noted at this time - Labs CBC & Chem 7: 01/08/17 07:43 01/09/17 12:40 Labs: Abnormal Lab Results - Last 24 Hours (Table) 01/09/17 01/09/17 01/09/17 Range/Units 11:02 12:40 13:41 Potassium 3.4 L (3.5-5.1) mmol/L POC Glucose (mg/dL) 68 L 67 L (75-99) mg/dL 01/09/17 01/09/17 01/09/17 Range/Units 13:56 16:52 20:18 Potassium (3.5-5.1) mmol/L POC Glucose (mg/dL) 131 H 103 H 144 H (75-99) mg/dL 01/10/17 01/10/17 Range/Units 02:27 07:17 Potassium (3.5-5.1) mmol/L POC Glucose (mg/dL) 114 H 100 H (75-99) mg/dL Assessment and Plan (1) Peritonitis associated with peritoneal dialysis Narrative/Plan: Monitoring the patient's incision site for oozing. Resume diet. Status: Acute
[2017-01-10] MEDS: INSULIN LISPRO (humaLOG) 300 UNIT/3 ML VIAL SQ SCH ×3 (09:26→17:38)
--- NOTE | 2017-01-10 09:29 | P.PN ---
Subjective Patient is seen in follow-up for end-stage renal disease. She was maintained on peritoneal dialysis and has now transitioned over to hemodialysis. Abdominal discomfort is improved. She is being treated for Klebsiella peritonitis with IV Rocephin. No vomiting or diarrhea. Edema improving with dialysis. Vital signs are stable. General: The patient appeared well nourished and normally developed. HEENT: Head exam is unremarkable. Neck is without jugular venous distension. LUNGS: Lungs are clear to auscultation and percussion. Breath sounds decreased. HEART: Rate and Rhythm are regular. First and second heart sounds normal. No murmurs, rubs or gallops. ABDOMEN: Abdominal exam reveals normal bowel sounds. Moderately distended. EXTREMITITES: 1+ edema. Objective - Vital Signs Vital signs: Vital Signs Temp 98.1 F 01/10/17 07:00 Pulse 63 01/10/17 07:00 Resp 18 01/10/17 07:00 BP 108/56 01/10/17 07:00 Pulse Ox 93 L 01/10/17 07:00 Intake & Output 01/09/17 01/10/17 01/10/17 18:59 06:59 18:59 Intake Total 150 300 Output Total 3 300 Balance 147 300 -300 Weight 95 kg 95 kg Intake: IV 150 Oral 0 300 Output: Urine 300 Estimated Blood Loss 3 Other: Voiding Method CAPD CAPD # Voids 0 1 1 # Bowel Movements 1 - Labs CBC & Chem 7: 01/08/17 07:43 01/09/17 12:40 Labs: Abnormal Lab Results - Last 24 Hours (Table) 01/09/17 01/09/17 01/09/17 Range/Units 11:02 12:40 13:41 Potassium 3.4 L (3.5-5.1) mmol/L POC Glucose (mg/dL) 68 L 67 L (75-99) mg/dL 01/09/17 01/09/17 01/09/17 Range/Units 13:56 16:52 20:18 Potassium (3.5-5.1) mmol/L POC Glucose (mg/dL) 131 H 103 H 144 H (75-99) mg/dL 01/10/17 01/10/17 Range/Units 02:27 07:17 Potassium (3.5-5.1) mmol/L POC Glucose (mg/dL) 114 H 100 H (75-99) mg/dL Assessment and Plan Plan: Assessment: #1. End-stage renal disease now maintained on hemodialysis. #2. Peritonitis with peritoneal fluid culture positive for Klebsiella. Maintained on antibiotics since December 28. PD catheter discontinued on January 09. #3. Abdominal pain likely related to peritonitis. Improving. #4. Urinary tract infection with urine culture positive for E. coli on December 28. #5. Anemia of chronic kidney disease. #6. Volume overload. Improving. Plan: Hemodialysis today and again tomorrow with 2-3 L ultrafiltration. Antibiotics per infectious disease recommendations. executive account manager to help set up outpatient hemodialysis in [place]. Will plan to transition back to peritoneal dialysis in about one month once infection free.
[2017-01-10] MEDS: FUROSEMIDE 10 MG/ML 10 ML VIAL IV SCH ×2 (09:42→20:48)
[2017-01-10 10:09] LABS: Calcium 8.6 mg/dL (8.4-10.2); Potassium 3.9 mmol/L (3.5-5.1)
[2017-01-10 11:52] LABS: Glucose,Whole Blood 147 mg/dL (75-99)
[2017-01-10] MEDS: CHOLESTYRAMINE (WITH SUGAR) 4 GM PACKET PO SCH ×2 (13:35→18:27)
[2017-01-10 14:27] VITALS: BMI 30.3
--- NOTE | 2017-01-10 16:29 | PN ---
DATE OF SERVICE: 01/10/2017 REASON FOR FOLLOWUP: 1. Secondary peritonitis. 2. Diarrhea. INTERVAL HISTORY: The patient is afebrile. The patient did develop diarrhea last night and had multiple loose stools this morning. Patient still has some rumbling pain in the belly. No nausea. No vomiting. Denies any blood or mucus in the stool. Denies having any chest pain or shortness of breath or cough. On examination, blood pressure is 108/56 with a pulse of 63, temperature 98.1. She is 93% on 2 L nasal cannula. General description is an elderly female lying in bed in no distress. RESPIRATORY SYSTEM: Unlabored breathing. Clear to auscultation anteriorly. HEART: S1, S2. Regular rate and rhythm. ABDOMEN: Soft. No tenderness. LABS: BUN of 26 with a creatinine 3.09. DIAGNOSTIC IMPRESSION AND PLAN: 1. Patient with vmoguhnhoh-mopvnqkx-tcqyserm-associated peritonitis with klebsiella, currently on oral Cipro; she will continue for another 9 to 10 days to finish course of therapy. 2. Patient with diarrhea. Will check her stool for C difficile and treat if it is positive. Will add Questran for symptomatic relief. Continue supportive care.
[2017-01-10 17:27] LABS: Glucose,Whole Blood 133 mg/dL (75-99)
--- NOTE | 2017-01-10 18:38 | PN ---
Patient is a 76-year-old admitted for peritonitis secondary to peritoneal dialysis catheter, which was removed and that is improving. Patient started having diarrhea today. Patient is on ciprofloxacin. Clostridium difficile is being obtained at this point of time. Patient is undergoing hemodialysis and patient has ( ) hemodialysis and has a chair at the [facility]. Because of the diarrhea I am unable to discharge her today. REVIEW OF SYSTEMS: CARDIOVASCULAR: No chest pain, no orthopnea, no PND, no palpitations. PULMONARY: Denied any shortness of breath. No cough or hemoptysis. GASTROINTESTINAL: As in HPI. NEUROLOGIC: No headaches, no weakness, no numbness. Medications were reviewed. I down titrated the insulin and changed the Lantus to 50 units and premeal insulin to 10 units as patient has been hypoglycemic. The reason of which is being fluctuating kidney function secondary to dialysis. PHYSICAL EXAMINATION: VITAL SIGNS: Temperature 98.1, pulse of 60, respiratory rate of 18, blood pressure is 108/56, saturating at 93% on 2 liters of O2 by nasal cannula. GENERAL: The patient is alert and oriented x3, not in any acute distress. Well developed, well nourished. HEENT: Pupils are round and equally reacting to light. EOMI. No scleral icterus. No conjunctival pallor. Normocephalic, atraumatic. No pharyngeal erythema. No thyromegaly. CARDIOVASCULAR: S1 and S2 present. No murmurs, rubs, or gallops. PULMONARY: Chest is clear to auscultation, no wheezing or crackles. ABDOMEN: Soft, nontender, nondistended, normoactive bowel sounds. No palpable organomegaly. MUSCULOSKELETAL: No joint swelling or deformity. EXTREMITIES: No cyanosis, clubbing, or pedal edema. NEUROLOGICAL: Gross neurological examination did not reveal any focal deficits. SKIN: No rashes. LABORATORY DATA: CBC and CMP are abnormal for low sodium of 134, BUN of 26, creatinine 3.09. ASSESSMENT AND PLAN: 1. Bacterial peritonitis secondary to peritoneal dialysis catheter related infection. Patient is on Cipro. 2. Diarrhea rule out C. difficile. 3. Mild degree of fluid overload. Patient is undergoing daily hemodialysis and patient will undergo hemodialysis tomorrow as she is going to stay here. 4. End-stage renal disease initiated on hemodialysis here, peritoneal dialysis was discontinued. 5. Hyperlipidemia. 6. Hypertension. 7. Type 2 diabetes mellitus. Down titrating the insulin as mentioned above because of hypoglycemic episodes. 8. Metabolic bone disease. 9. Anemia of chronic kidney disease.
[2017-01-10] MEDS ORDERED: HEPARIN SODIUM,PORCINE 5,000 UNIT/ML 1 ML VIAL ONE (19:00)
[2017-01-10 20:22] LABS: Glucose,Whole Blood 134 mg/dL (75-99)
[2017-01-10] MEDS: PYRIDOXINE 50 MG TAB PO SCH (20:48)
[2017-01-10 21:55] VITALS: RESP 16
[2017-01-11 01:55] LABS: Glucose,Whole Blood 110 mg/dL (75-99)
[2017-01-11 07:11] LABS: Glucose,Whole Blood 62 mg/dL (75-99)
[2017-01-11 07:32] LABS: Glucose,Whole Blood 106 mg/dL (75-99)
[2017-01-11 07:59] LABS: CH 35.4; CHCM 32.1; HDW 3.27; HGB 8.7 gm/dL (11.4-16.0); Hypochromasia Slight; MCH 34.5 pg (25.0-35.0); MCHC 31.2 g/dL (31.0-37.0); MCV 110.9 fL (80.0-100.0); Macrocytosis Marked; Mean Platelet Volume 9.4; RBC 2.52 m/uL (3.80-5.40); RDW 14.7 % (11.5-15.5); WBC 8.7 k/uL (3.8-10.6)
[2017-01-11 08:08] LABS: Calcium 8.7 mg/dL (8.4-10.2)
[2017-01-11 08:09] LABS: Potassium 3.5 mmol/L (3.5-5.1)
[2017-01-11] MEDS: ALLOPURINOL 100 MG TAB PO SCH (08:17)
[2017-01-11] MEDS: CIPROFLOXACIN HCL 500 MG TAB PO SCH (08:17)
[2017-01-11] MEDS: ATORVASTATIN 10 MG TAB PO SCH (08:17)
[2017-01-11] MEDS: CHOLECALCIFEROL 1,000 UNIT TAB PO SCH ×2 (08:17→20:45)
[2017-01-11] MEDS: amLODIPine 10 MG TAB PO SCH (08:17)
[2017-01-11] MEDS: ASPIRIN 81 MG CHEW PO SCH (08:17)
[2017-01-11] MEDS: METOPROLOL TARTRATE 50 MG TAB PO SCH ×2 (08:17→20:45)
[2017-01-11] MEDS: CHOLESTYRAMINE (WITH SUGAR) 4 GM PACKET PO SCH ×2 (08:18→15:12)
[2017-01-11] MEDS: FUROSEMIDE 10 MG/ML 10 ML VIAL IV SCH ×2 (08:19→20:45)
[2017-01-11] MEDS: INSULIN LISPRO (humaLOG) 300 UNIT/3 ML VIAL SQ SCH ×3 (08:19→17:44)
[2017-01-11] MEDS: ACETAMINOPHEN TAB 500 MG TAB PO SCH ×2 (08:21→20:44)
--- NOTE | 2017-01-11 09:33 | P.PN ---
Subjective Patient is seen in follow-up for end-stage renal disease. She was maintained on peritoneal dialysis and has now transitioned over to hemodialysis. Abdominal discomfort is improved. She is being treated for Klebsiella peritonitis with oral cipro. No vomiting or diarrhea. Edema improving with dialysis. She continues to have diarrhea. Vital signs are stable. General: The patient appeared well nourished and normally developed. HEENT: Head exam is unremarkable. Neck is without jugular venous distension. LUNGS: Lungs are clear to auscultation and percussion. Breath sounds decreased. HEART: Rate and Rhythm are regular. First and second heart sounds normal. No murmurs, rubs or gallops. ABDOMEN: Abdominal exam reveals normal bowel sounds. Moderately distended. EXTREMITITES: 1+ edema. Objective - Vital Signs Vital signs: Vital Signs Temp 97 F L 01/11/17 07:00 Pulse 81 01/11/17 08:00 Resp 16 01/11/17 08:00 BP 107/58 01/11/17 07:00 Pulse Ox 97 01/11/17 07:00 Intake & Output 01/10/17 01/11/17 01/11/17 18:59 06:59 18:59 Intake Total 800 200 Output Total 300 Balance 500 200 Weight 87.77 kg Intake: Oral 800 200 Output: Urine 300 Other: Voiding Method CAPD CAPD # Voids 1 0 # Bowel Movements 4 - Labs CBC & Chem 7: 01/11/17 06:48 01/11/17 06:48 Labs: Abnormal Lab Results - Last 24 Hours (Table) 01/10/17 01/10/17 01/10/17 Range/Units 09:34 11:46 17:20 RBC (3.80-5.40) m/uL Hgb (11.4-16.0) gm/dL Hct (34.0-46.0) % MCV (80.0-100.0) fL Sodium 134 L (137-145) mmol/L BUN 26 H (7-17) mg/dL Creatinine 3.09 H (0.52-1.04) mg/dL Glucose 131 H (74-99) mg/dL POC Glucose (mg/dL) 147 H 133 H (75-99) mg/dL 01/10/17 01/11/17 01/11/17 Range/Units 20:14 01:54 06:48 RBC 2.52 L (3.80-5.40) m/uL Hgb 8.7 L (11.4-16.0) gm/dL Hct 28.0 L (34.0-46.0) % MCV 110.9 H (80.0-100.0) fL Sodium (137-145) mmol/L BUN (7-17) mg/dL Creatinine (0.52-1.04) mg/dL Glucose (74-99) mg/dL POC Glucose (mg/dL) 134 H 110 H (75-99) mg/dL 01/11/17 01/11/17 01/11/17 Range/Units 06:48 06:59 07:22 RBC (3.80-5.40) m/uL Hgb (11.4-16.0) gm/dL Hct (34.0-46.0) % MCV (80.0-100.0) fL Sodium (137-145) mmol/L BUN 18 H (7-17) mg/dL Creatinine 2.70 H (0.52-1.04) mg/dL Glucose 56 L (74-99) mg/dL POC Glucose (mg/dL) 62 L 106 H (75-99) mg/dL Assessment and Plan Plan: Assessment: #1. End-stage renal disease now maintained on hemodialysis. #2. Peritonitis with peritoneal fluid culture positive for Klebsiella. Maintained on antibiotics since December 28. PD catheter discontinued on January 09. #3. Abdominal pain likely related to peritonitis. Improving. #4. Urinary tract infection with urine culture positive for E. coli on December 28. #5. Anemia of chronic kidney disease. #6. Volume overload. Improving. Plan: Hemodialysis today - 2 hour treatment with 1-2 L ultrafiltration as tolerated. Antibiotics per infectious disease recommendations. Outpatient dialysis has been set up. Will plan to transition back to peritoneal dialysis in about one month once infection free. Stable to be discharged from nephrology standpoint.
[2017-01-11 11:12] LABS: Glucose,Whole Blood 196 mg/dL (75-99)
[2017-01-11] MEDS ORDERED: ACETAMINOPHEN TAB 500 MG TAB PO PRN (12:35)
[2017-01-11] MEDS ORDERED: LOPERAMIDE 2 MG CAP PO PRN (14:42)
--- NOTE | 2017-01-11 16:05 | PN ---
DATE OF SERVICE: 01/11/2017 REASON FOR FOLLOW-UP: 1. PD catheter associated peritonitis. 2. Diarrhea. INTERVAL HISTORY: The patient is afebrile. She is still having significant diarrhea. The patient denies having any chest pain or shortness of breath or cough. On examination, her blood pressure is 157/52 with a pulse of 81, temperature 97. She is 97% on 2-L nasal cannula. General description is an elderly female lying in bed in no distress. RESPIRATORY SYSTEM: Unlabored breathing. Clear to auscultation. HEART: S1, S2 regular rate and rhythm. ABDOMEN: Soft, slightly distended. No guarding, rigidity. LABS: Hemoglobin 8.7, white count 8.7, BUN of 18, creatinine 2.7. Stool for Clostridium difficile is negative. DIAGNOSTIC IMPRESSION AND PLAN: 1. Patient with PD catheter associated peritonitis. Patient will finish the p.o. Cipro for another week. 2. Patient with diarrhea. Stool for Clostridium difficile is negative. Will discontinue the lactulose. Questran will be continued and will be given Imodium p.r.n. Patient also advised to increase her probiotic intake. [facility]
[2017-01-11 17:24] LABS: Glucose,Whole Blood 156 mg/dL (75-99)
--- NOTE | 2017-01-11 18:00 | PN ---
Patient is admitted with peritonitis secondary to peritoneal dialysis catheter which was removed. Patient is on Cipro for Klebsiella. Patient is having diarrhea. Clostridium difficile is negative. Diarrhea is secondary to antibiotics, which needs to be continued until using Questran and yogurt for diarrhea. Patient had around 3 episodes today morning. Hopefully, that will improve with these conservative measures and after that if it does patient will be discharged tomorrow. REVIEW OF SYSTEMS: CARDIOVASCULAR: No chest pain, no orthopnea, no PND, no palpitations. PULMONARY: Denied any shortness of breath. No cough or hemoptysis. GASTROINTESTINAL: As described in HPI. NEUROLOGIC: No headaches, no weakness, no numbness. Medications are reviewed. PHYSICAL EXAMINATION: Temperature is temperature 97.4, pulse of 63, respiratory rate of 16, blood pressure is 97/49, saturating at 93% on 2-L of O2 nasal cannula. GENERAL: The patient is alert and oriented x3, not in any acute distress. Well developed, well nourished. HEENT: Pupils are round and equally reacting to light. EOMI. No scleral icterus. No conjunctival pallor. Normocephalic, atraumatic. No pharyngeal erythema. No thyromegaly. CARDIOVASCULAR: S1 and S2 present. No murmurs, rubs, or gallops. PULMONARY: Chest is clear to auscultation, no wheezing or crackles. ABDOMEN: Soft, nontender, nondistended, normoactive bowel sounds. No palpable organomegaly. MUSCULOSKELETAL: No joint swelling or deformity. EXTREMITIES: No cyanosis, clubbing, or pedal edema. NEUROLOGICAL: Gross neurological examination did not reveal any focal deficits. SKIN: No rashes. LABORATORY DATA: CBC and CMP are abnormal for elevated BUN and creatinine of 18 and 2.70, which are better than yesterday predialysis. ASSESSMENT AND PLAN: 1. Bacterial peritonitis, which is improving. 2. Diarrhea secondary to antibiotics, ruled out Clostridium difficile. 3. Mild degree of fluid overload, which is improving with dialysis at this time. 4. End-stage renal disease, was initiated on hemodialysis, was on peritoneal dialysis before this hospitalization. 5. Hyperlipidemia. 6. Hypertension. 7. Type 2 diabetes mellitus. The blood sugars are doing better at this time with change in regimen. 8. Metabolic bone disease. 9. Anemia of chronic disease. I will still cut down the premeal insulin to 8 units.
[2017-01-11 20:03] LABS: Glucose,Whole Blood 246 mg/dL (75-99)
[2017-01-11] MEDS: INSULIN GLARGINE 100 UNIT/ML 10 ML VIAL SQ SCH (20:45)
[2017-01-11] MEDS: PYRIDOXINE 50 MG TAB PO SCH (20:46)
[2017-01-12 02:45] LABS: Glucose,Whole Blood 162 mg/dL (75-99)
[2017-01-12 07:12] LABS: Glucose,Whole Blood 126 mg/dL (75-99)
[2017-01-12] MEDS: METOPROLOL TARTRATE 50 MG TAB PO SCH (07:45)
[2017-01-12] MEDS: ACETAMINOPHEN TAB 500 MG TAB PO SCH (07:45)
[2017-01-12] MEDS: ASPIRIN 81 MG CHEW PO SCH (07:45)
[2017-01-12] MEDS: ATORVASTATIN 10 MG TAB PO SCH (07:45)
[2017-01-12] MEDS: CHOLECALCIFEROL 1,000 UNIT TAB PO SCH (07:46)
[2017-01-12] MEDS: CIPROFLOXACIN HCL 500 MG TAB PO SCH (07:46)
[2017-01-12] MEDS: ALLOPURINOL 100 MG TAB PO SCH (07:46)
[2017-01-12] MEDS: FUROSEMIDE 10 MG/ML 10 ML VIAL IV SCH (07:46)
[2017-01-12] MEDS: INSULIN LISPRO (humaLOG) 300 UNIT/3 ML VIAL SQ SCH ×2 (07:53→13:06)
[2017-01-12 08:12] VITALS: BP 120/50; PULSE 65; TEMP 97.8
[2017-01-12] MEDS: CHOLESTYRAMINE (WITH SUGAR) 4 GM PACKET PO SCH (11:06)
[2017-01-12 11:17] LABS: Glucose,Whole Blood 193 mg/dL (75-99)
[2017-01-12] MEDS ORDERED: INSULIN LISPRO (humaLOG) 300 UNIT/3 ML VIAL SQ SCH (17:30)
--- NOTE | 2017-01-13 19:44 | DS ---
DATE OF ADMISSION: 01/03/2017 DATE OF DISCHARGE: 01/12/2017 The patient is admitted secondary to peritonitis from peritoneal dialysis catheter. Patient was found to have Klebsiella and patient was subsequently started on Cipro and patient ended up having diarrhea secondary to Cipro, which the patient has negative C. difficile and patient is being discharged today in stable medical condition to home. Patient was initiated on hemodialysis. Patient was seen and examined on the day of discharge. Vitals signs were stable. PHYSICAL EXAMINATION: GENERAL: The patient is alert and oriented x3, not in any acute distress. Well developed, well nourished. HEENT: Pupils are round and equally reacting to light. EOMI. No scleral icterus. No conjunctival pallor. Normocephalic, atraumatic. No pharyngeal erythema. No thyromegaly. CARDIOVASCULAR: S1 and S2 present. No murmurs, rubs, or gallops. PULMONARY: Chest is clear to auscultation, no wheezing or crackles. ABDOMEN: Soft, nontender, nondistended, normoactive bowel sounds. No palpable organomegaly. MUSCULOSKELETAL: No joint swelling or deformity. EXTREMITIES: No cyanosis, clubbing, or pedal edema. NEUROLOGICAL: Gross neurological examination did not reveal any focal deficits. SKIN: No rashes. FINAL DIAGNOSES: 1. Bacterial peritonitis secondary peritoneal dialysis catheter. 2. Diarrhea secondary to antibiotics, ruled out Clostridium difficile. 3. Mild degree of fluid overload, which improved with dialysis. 4. End stage renal disease initiated on hemodialysis. 5. Hyperlipidemia. 6. Hypertension. 7. Type 2 diabetes mellitus. 8. Metabolic bone disease. 9. Anemia of chronic disease. Patient will be discharged today. Please refer to my depart summary for further details of discharge medications. Patient will follow with Dr. Jose Juan Seay in about 3 to 7 days. Activity as tolerated. Cardiac and diabetic 1800 calorie diet and renal diet. Patient will follow in hemodialysis clinic tomorrow. Spent greater than 35 minutes in total discharge process.
== END 2017-01-12 15:12 | disposition home or self-care (01) | DRG 981 ==
LOC: EC 23:47 → 6ICU 01-03 02:10 → 5MS5E 01-03 08:10
PROVIDERS: ADMIT Hospitalist; ATTEND Hospitalist
PROC: 06H033Z Insertion of Infusion Device into Inferior Vena Cava, Percutaneous Approach (ICD-10-PCS; 2017-01-07)
PROC: B5191ZA Fluoroscopy of Inferior Vena Cava using Low Osmolar Contrast, Guidance (ICD-10-PCS; 2017-01-07)
PROC: 5A1D60Z (ICD-10-PCS; 2017-01-08)
PROC: 0WPG03Z Removal of Infusion Device from Peritoneal Cavity, Open Approach (ICD-10-PCS; principal; 2017-01-09 13:00)
DX: T85.71XA Infection and inflammatory reaction due to peritoneal dialysis catheter, initial encounter (principal); K65.9 Peritonitis, unspecified; I13.2 Hypertensive heart and chronic kidney disease with heart failure and with stage 5 chronic kidney disease, or end stage renal disease; N18.6 End stage renal disease; E11.22 Type 2 diabetes mellitus with diabetic chronic kidney disease; I50.32 Chronic diastolic (congestive) heart failure; E11.649 Type 2 diabetes mellitus with hypoglycemia without coma; N39.0 Urinary tract infection, site not specified; K52.1 Toxic gastroenteritis and colitis; B96.20 Unspecified Escherichia coli [E. coli] as the cause of diseases classified elsewhere; B96.1 Klebsiella pneumoniae [K. pneumoniae] as the cause of diseases classified elsewhere; I34.0 Nonrheumatic mitral (valve) insufficiency; E87.79 Other fluid overload; E55.9 Vitamin D deficiency, unspecified; T36.8X5A Adverse effect of other systemic antibiotics, initial encounter; E87.6 Hypokalemia; E78.5 Hyperlipidemia, unspecified; D63.1 Anemia in chronic kidney disease; D72.829 Elevated white blood cell count, unspecified; R53.1 Weakness; I25.2 Old myocardial infarction; G89.29 Other chronic pain; M48.00 Spinal stenosis, site unspecified; K57.90 Diverticulosis of intestine, part unspecified, without perforation or abscess without bleeding; M19.90 Unspecified osteoarthritis, unspecified site; H54.41 Blindness, right eye, normal vision left eye; Z99.2 Dependence on renal dialysis; Z79.4 Long term (current) use of insulin; Z79.899 Other long term (current) drug therapy; Z79.82 Long term (current) use of aspirin; Z83.3 Family history of diabetes mellitus; Z80.41 Family history of malignant neoplasm of ovary; Z98.42 Cataract extraction status, left eye; Z80.0 Family history of malignant neoplasm of digestive organs; Z87.81 Personal history of (healed) traumatic fracture; Z87.19 Personal history of other diseases of the digestive system; Z86.010 Personal history of colon polyps; Z71.3 Dietary counseling and surveillance; Y84.1 Kidney dialysis as the cause of abnormal reaction of the patient, or of later complication, without mention of misadventure at the time of the procedure
CPT/HCPCS: 36415; 36558; 71010; 74000; 80048; 80053; 80074; 81001; 82150; 83036; 83605; 83690; 83735; 84100; 84132; 85025; 85027; 87040; 87070; 87205; 87324; 89050; 90935; 96365; 96367; 96375; 99291

== ENCOUNTER 2018-03-12 21:03 | Observation (INO) | payer MEDICARE, BC ==
[2018-03-12] MEDS ORDERED: ACETAMINOPHEN TAB 325 MG TAB PO PRN (23:21)
[2018-03-12] MEDS ORDERED: ONDANSETRON 4 MG/2 ML VIAL IVP PRN (23:22)
[2018-03-12] MEDS: HYDROcodone/APAP 5-325MG 1 EACH TAB PO PRN (23:40)
[2018-03-13 04:30] VITALS: BMI 29.1
[2018-03-13] MEDS: HYDROcodone/APAP 5-325MG 1 EACH TAB PO PRN ×2 (08:06→15:08)
[2018-03-13 08:26] VITALS: TEMP 98.1
[2018-03-13] MEDS ORDERED: LOPERAMIDE 2 MG CAP PO PRN (10:28)
[2018-03-13] MEDS ORDERED: ACETAMINOPHEN TAB 500 MG TAB PO PRN (10:28)
[2018-03-13] MEDS ORDERED: predniSONE 20 MG TAB PO SCH (10:30)
--- NOTE | 2018-03-13 11:12 | P.HPIM ---
History of Present Illness Patient is very pleasant 78-year-old female was seen in [facility] for shoulder pain has been going on for a 2 weeks patient is unable to move her shoulder patient active and passive movements of left shoulder restricted because of severe pain there is some tenderness in the left shoulder area patient underwent workup at [facility] found to have calcification in the left shoulder area along with significant tendinitis. For this orthopedic surgery. A CAT scan of the left shoulder incidentally showed about 4 lymph nodes in the anterior shoulder area which had a less than 1 cm. Because of which patient subsequently underwent extensive workup which showed multiple pulmonary nodules as well as a lesion highly concerning for renal cell carcinoma in the inferior pole of the right kidney. Patient has abnormal urine but asymptomatic bacteria patient does not have any symptoms of urinary tract infection will not require any antibiotics patient is a dialysis-dependent end- stage renal disease patient patient's hemodialysis is Friday and Friday patient is due for hemodialysis patient will undergo hemodialysis today. After which patient the will follow with oncology as an outpatient will set up appointments with pulmonology as an outpatient for bronchoscopic biopsy of the lung lesions. Patient will be started on low-dose of steroids as well as GI prophylaxis. Review of Systems REVIEW OF SYSTEMS: CONSTITUTIONAL: No fever, no malaise, no fatigue. HEENT: No recent visual problems or hearing problems. Denied any sore throat. CARDIOVASCULAR: No chest pain, orthopnea, PND, no palpitations, no syncope. PULMONARY: No shortness of breath, no cough, no hemoptysis. GASTROINTESTINAL: No diarrhea, no nausea, no vomiting, no abdominal pain. Normoactive bowel sounds. NEUROLOGICAL: No headaches, no weakness, no numbness. HEMATOLOGICAL: Denies any bleeding or petechiae. GENITOURINARY: Denies any burning micturition, frequency, or urgency. MUSCULOSKELETAL/RHEUMATOLOGICAL: As mentioned in HPI ENDOCRINE: Denies any polyuria or polydipsia. The rest of the 14-point review of systems is negative. 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 Peritonitis Last Myocardial Infarction Date:: unkn- 30 or more yrs ago per EKG History of Any Multi-Drug Resistant Organisms: None Reported Past Surgical History: Back Surgery, Orthopedic Surgery Additional Past Surgical History / Comment(s): 08/31/15 EGD with bx and colonoscopy with ulcerative polyp, right shoulder surgery - humerus ORIF, left ankle ORIF, low back surgery, multiple pain procedures, L cataract removal, R knee arthroscopy. Past Anesthesia/Blood Transfusion Reactions: No Reported Reaction Additional Past Anesthesia/Blood Transfusion Reaction / Comment(s): Pt states she has received blood in the past without reaction. Past Psychological History: No Psychological Hx Reported Additional Psychological History / Comment(s): Pt resides with her spouse. She is independent. She does not use any assistive device. She drives. Smoking Status: Never smoker Past Alcohol Use History: None Reported Past Drug Use History: None Reported - Past Family History Sister(s) Family Medical History: Cancer Additional Family Medical History / Comment(s): Ovarian cancer Brother(s) Family Medical History: Cancer Additional Family Medical History / Comment(s): colon Mother Family Medical History: Diabetes Mellitus Additional Family Medical History / Comment(s): Mother in her 80's Father History Unknown: Yes Additional Family Medical History / Comment(s): Father had a bowel obstruction. He at 84 yrs. Medications and Allergies Home Medications Medication Instructions Recorded Confirmed Type Cholecalciferol [Vitamin D3] 1,000 unit PO HS 08/24/15 03/13/18 History Lovastatin [Mevacor] 5 mg PO HS 08/24/15 03/13/18 History Cyanocobalamin [Vitamin B-12] 1,000 mcg PO HS 11/27/15 03/13/18 History Pyridoxine [Vitamin B-6] 100 mg PO HS 11/27/15 03/13/18 History Acetaminophen [Tylenol] 500 mg PO BID PRN 02/06/16 03/13/18 History Aspirin EC [Ecotrin Low Dose] 81 mg PO DAILY 01/03/17 03/13/18 History Loperamide [Imodium] 2 mg PO QID PRN #20 cap 01/12/17 03/13/18 Rx Calcium Carbonate [Tums] 1,000 mg PO BID 03/13/18 03/13/18 History Diltiazem Cd [Cardizem Cd] 120 mg PO HS 03/13/18 03/13/18 History Furosemide [Lasix] 60 mg PO BID 03/13/18 03/13/18 History Insulin Aspart [NovoLOG Flexpen] 10 units SQ AC-TID 03/13/18 03/13/18 History Insulin Detemir [Levemir] 56 units SQ HS 03/13/18 03/13/18 History Metoprolol Succinate (ER) [Toprol 12.5 mg PO BID 03/13/18 03/13/18 History Xl] Sodium Bicarb 20 Mg 20 mg PO BID 03/13/18 03/13/18 History Allergies Allergy/AdvReac Type Severity Reaction Status Date / Time No Known Allergies Allergy Verified 12/28/16 11:24 Physical Exam Vitals: Vital Signs Temp Pulse Resp BP Pulse Ox 03/13/18 09:00 99 03/13/18 07:36 97 03/13/18 07:35 98.1 F 70 20 144/65 66 L 03/13/18 07:26 97 03/13/18 00:00 17 03/12/18 23:21 98.2 F 73 17 194/79 95 Intake and Output 03/12/18 03/13/18 03/13/18 22:59 06:59 14:59 Intake Total 840 Balance 840 Intake: Oral 840 Other: # Voids 1 Weight 84.3 kg PHYSICAL EXAMINATION: GENERAL: The patient is alert and oriented x3, not in any acute distress. Well developed, well nourished. HEENT: Pupils are round and equally reacting to light. EOMI. No scleral icterus. No conjunctival pallor. Normocephalic, atraumatic. No pharyngeal erythema. No thyromegaly. CARDIOVASCULAR: S1 and S2 present. No murmurs, rubs, or gallops. PULMONARY: Chest is clear to auscultation, no wheezing or crackles. ABDOMEN: Soft, nontender, nondistended, normoactive bowel sounds. No palpable organomegaly. MUSCULOSKELETAL: No joint swelling or deformity. Shoulder exam as mentioned in HPI EXTREMITIES: No cyanosis, clubbing, or pedal edema. NEUROLOGICAL: Gross neurological examination did not reveal any focal deficits. SKIN: No rashes. Thrombosis Risk Factor Assmnt - Choose All That Apply Any of the Below Risk Factors Present?: Yes Each Factor Represents 1 point: Obesity (BMI >25) Other Risk Factors: Yes Each Risk Factor Represents 3 Points: Age 75 years or older Thrombosis Risk Factor Assessment Total Risk Factor Score: 4 Thrombosis Risk Factor Assessment Level: Moderate Risk Assessment and Plan Plan: -Severe left shoulder pain with restricted movements of the left shoulder: Secondary to severe tendinitis patient was started on anti-intermittent medication that is prednisone 20 mg twice a day. Also takes surgery evaluation. -Incidental findings of possible metastatic renal cell carcinoma: Biopsy and outpatient follow ups as mentioned abortively Dr. Hernandez was consulted. -End-stage renal disease hemodialysis dependent patient will undergo dialysis today before her discharge. -Type 2 diabetes mellitus -Diabetic nephropathy and end-stage renal disease extent-diabetic neuropathy -Metabolic bone disease -Mild hyperkalemia secondary to end-stage renal disease expected to improve with hemodialysis -Hyperlipidemia -Hypertensio- Asymptomatic bactreuria: Will not require any antibiotics
[2018-03-13 11:39] LABS: Calcium 9.6 mg/dL (8.4-10.2); Potassium 6.1 mmol/L (3.5-5.1)
[2018-03-13 11:41] LABS: Glucose,Whole Blood 286 mg/dL (75-99)
--- NOTE | 2018-03-13 12:09 | XR ---
EXAMINATION TYPE: XR shoulder complete LT DATE OF EXAM: 03/13/2018 COMPARISON: NONE HISTORY: Left shoulder pain TECHNIQUE: Three views are submitted. FINDINGS: The osseous structures are intact. There is no acute fracture or dislocation. Arthropathy of the AC joint noted. Surgical clips in the soft tissues. Incidental note is made of left-sided pulmonary nodu les with suggestion chronic lung disease. Question a focal lucency within the scapula and proximal hu merus. IMPRESSION: 1. AC joint arthropathy. 2. Suspect pulmonary nodules within the left upper lobe and lucent lesions involving the scapula and proximal humerus which could be on the basis of metastases. Recommend CT of the chest.
[2018-03-13] MEDS ORDERED: INSULIN ASPART 100 UNIT/ML 1 ML 10 ML VIAL SQ SCH (12:30)
--- NOTE | 2018-03-13 14:18 | P.NPCON ---
History of Present Illness - Reason for Consult end stage renal disease - History of Present Illness Reason for consultation: End-stage renal disease History of present illness: Patient is a 78-year-old female seen in renal consultation for end-stage renal disease. She is maintained on hemodialysis on Friday and Friday via left upper extremity AV fistula. She follows with [facility] out of [facility]. Patient presented to the hospital with left shoulder pain. She underwent an x-ray which revealed arthritis of the before meals joint. Additionally she was noted to have pulmonary nodules. She also had a recent CAT scan done which revealed 4 lymph nodes in the anterior shoulder less than 1 cm. She will be seeing oncology as an outpatient. She is currently waiting to get hemodialysis and is supposed to be discharged home. Oral intake is good. No vomiting or diarrhea. Denies chest pain or shortness of breath. Vital signs are stable. General: The patient appeared well nourished and normally developed. HEENT: Head exam is unremarkable. Neck is without jugular venous distension. LUNGS: Lungs are clear to auscultation and percussion. Breath sounds decreased. HEART: Rate and Rhythm are regular. First and second heart sounds normal. No murmurs, rubs or gallops. ABDOMEN: Abdominal exam reveals normal bowel sounds. Non-tender and non- distended. No evidence of peritonitis. EXTREMITITES: No clubbing, cyanosis, or edema. 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 Peritonitis Last Myocardial Infarction Date:: unkn- 30 or more yrs ago per EKG History of Any Multi-Drug Resistant Organisms: None Reported Past Surgical History: Back Surgery, Orthopedic Surgery Additional Past Surgical History / Comment(s): 08/31/15 EGD with bx and colonoscopy with ulcerative polyp, right shoulder surgery - humerus ORIF, left ankle ORIF, low back surgery, multiple pain procedures, L cataract removal, R knee arthroscopy. Past Anesthesia/Blood Transfusion Reactions: No Reported Reaction Additional Past Anesthesia/Blood Transfusion Reaction / Comment(s): Pt states she has received blood in the past without reaction. Past Psychological History: No Psychological Hx Reported Additional Psychological History / Comment(s): Pt resides with her spouse. She is independent. She does not use any assistive device. She drives. Smoking Status: Never smoker Past Alcohol Use History: None Reported Past Drug Use History: None Reported - Past Family History Sister(s) Family Medical History: Cancer Additional Family Medical History / Comment(s): Ovarian cancer Brother(s) Family Medical History: Cancer Additional Family Medical History / Comment(s): colon Mother Family Medical History: Diabetes Mellitus Additional Family Medical History / Comment(s): Mother in her 80's Father History Unknown: Yes Additional Family Medical History / Comment(s): Father had a bowel obstruction. He at 84 yrs. Medications and Allergies Home Medications Medication Instructions Recorded Confirmed Type Cholecalciferol [Vitamin D3] 1,000 unit PO HS 08/24/15 03/13/18 History Lovastatin [Mevacor] 5 mg PO HS 08/24/15 03/13/18 History Cyanocobalamin [Vitamin B-12] 1,000 mcg PO HS 11/27/15 03/13/18 History Pyridoxine [Vitamin B-6] 100 mg PO HS 11/27/15 03/13/18 History Acetaminophen [Tylenol] 500 mg PO BID PRN 02/06/16 03/13/18 History Aspirin EC [Ecotrin Low Dose] 81 mg PO DAILY 01/03/17 03/13/18 History Loperamide [Imodium] 2 mg PO QID PRN #20 cap 01/12/17 03/13/18 Rx Calcium Carbonate [Tums] 1,000 mg PO BID 03/13/18 03/13/18 History Diltiazem Cd [Cardizem Cd] 120 mg PO HS 03/13/18 03/13/18 History Furosemide [Lasix] 60 mg PO BID 03/13/18 03/13/18 History Insulin Aspart [NovoLOG Flexpen] 10 units SQ AC-TID 03/13/18 03/13/18 History Insulin Detemir [Levemir] 56 units SQ HS 03/13/18 03/13/18 History Metoprolol Succinate (ER) [Toprol 12.5 mg PO BID 03/13/18 03/13/18 History Xl] Sodium Bicarb 20 Mg 20 mg PO BID 03/13/18 03/13/18 History Allergies Allergy/AdvReac Type Severity Reaction Status Date / Time No Known Allergies Allergy Verified 12/28/16 11:24 Physical Exam Vitals: Vital Signs Temp Pulse Resp BP Pulse Ox 03/13/18 09:00 99 03/13/18 07:36 97 03/13/18 07:35 98.1 F 70 20 144/65 66 L 03/13/18 07:26 97 03/13/18 00:00 17 03/12/18 23:21 98.2 F 73 17 194/79 95 Intake and Output 03/12/18 03/13/18 03/13/18 22:59 06:59 14:59 Intake Total 840 Balance 840 Intake: Oral 840 Other: # Voids 1 Weight 84.3 kg Results - Lab Results Most recent lab results Calcium 9.6 mg/dL (8.4-10.2) 03/13/18 10:58 03/13/18 10:58 Assessment and Plan Plan: Assessment: 1. End-stage renal disease maintained on hemodialysis on Friday and Friday via left upper extremity AV fistula. Patient follows with [facility] out of [place]. Etiology is diabetic kidney disease. 2. Hyperkalemia secondary to chronic kidney disease. 3. Insulin-dependent diabetes mellitus. 4. Left shoulder pain related to arthritis. 5. Pulmonary nodules. Concern for malignancy. She will follow up with pulmonology for bronchoscopy as well as oncology as outpatient. Plan: Hemodialysis today with goal 1-2 L ultrafiltration. Check phosphorus level. Stable to be discharged from nephrology standpoint of her dialysis today. Thank you for the consultation. I will continue to follow the patient with you during her hospital stay.
[2018-03-13 15:08] VITALS: BP 167/76; PULSE 77; RESP 18
[2018-03-13] MEDS ORDERED: FUROSEMIDE 20 MG TAB PO SCH (16:00)
[2018-03-13 17:19] LABS: Glucose,Whole Blood 157 mg/dL (75-99)
--- NOTE | 2018-03-13 18:27 | P.DS ---
Providers Date of admission: 03/12/18 23:19 Attending physician: Jody Carbajal Consults: 03/12/18 23:18 Consult Physician Routine Consulting Provider: Yoan Hernandez Consult Reason/Comments: Renal mass Do you want consulting provider notified?: Yes, Notify in am Placement Type Exists?: Yes 03/12/18 23:19 Consult Physician Routine Consulting Provider: Mat Nieto Consult Reason/Comments: ESRD, ranal mass Do you want consulting provider notified?: Yes, Notify in am Placement Type Exists?: Yes 03/13/18 10:22 Consult Physician Routine Consulting Provider: Bharath Johnson Consult Reason/Comments: left upper extremity pain and immobility, see today please Do you want consulting provider notified?: Yes Primary care physician: Stated None Hospital Course: Please refer to HPI for further details and patient was evaluated by orthopedic surgery and oncology set up an outpatient appointment for biopsy for renal lesion. Plan - Discharge Summary New Discharge Prescriptions: New predniSONE 10 mg PO DAILY #50 tab Continue Lovastatin [Mevacor] 5 mg PO HS Cholecalciferol [Vitamin D3] 1,000 unit PO HS Pyridoxine [Vitamin B-6] 100 mg PO HS Cyanocobalamin [Vitamin B-12] 1,000 mcg PO HS Acetaminophen [Tylenol] 500 mg PO BID PRN PRN Reason: Pain Loperamide [Imodium] 2 mg PO QID PRN #20 cap PRN Reason: Diarrhea Diltiazem Cd [Cardizem CD] 120 mg PO HS Calcium Carbonate [Tums] 1,000 mg PO BID Furosemide [Lasix] 60 mg PO BID Insulin Aspart [NovoLOG Flexpen] 10 units SQ AC-TID Insulin Detemir [Levemir] 56 units SQ HS Metoprolol Succinate (ER) [Toprol XL] 12.5 mg PO BID Sodium Bicarb 20 Mg 20 mg PO BID Aspirin EC [Ecotrin Low Dose] 81 mg PO DAILY #0 Discharge Medication List Cholecalciferol [Vitamin D3] 1,000 unit PO HS 08/24/15 [History] Lovastatin [Mevacor] 5 mg PO HS 08/24/15 [History] Cyanocobalamin [Vitamin B-12] 1,000 mcg PO HS 11/27/15 [History] Pyridoxine [Vitamin B-6] 100 mg PO HS 11/27/15 [History] Acetaminophen [Tylenol] 500 mg PO BID PRN 02/06/16 [History] Loperamide [Imodium] 2 mg PO QID PRN #20 cap 01/12/17 [Rx] Aspirin EC [Ecotrin Low Dose] 81 mg PO DAILY #0 03/13/18 [Rx] Calcium Carbonate [Tums] 1,000 mg PO BID 03/13/18 [History] Diltiazem Cd [Cardizem CD] 120 mg PO HS 03/13/18 [History] Furosemide [Lasix] 60 mg PO BID 03/13/18 [History] Insulin Aspart [NovoLOG Flexpen] 10 units SQ AC-TID 03/13/18 [History] Insulin Detemir [Levemir] 56 units SQ HS 03/13/18 [History] Metoprolol Succinate (ER) [Toprol XL] 12.5 mg PO BID 03/13/18 [History] Sodium Bicarb 20 Mg 20 mg PO BID 03/13/18 [History] predniSONE 10 mg PO DAILY #50 tab 03/13/18 [Rx] Follow up Appointment(s)/Referral(s): Narciso Madrid PAC [PHYSICIAN TRANSFUSION NURSE] - 1 Week (Patient to follow up with [facility] as needed for shoulder pain. ) Yoan Hernandez MD [STAFF PHYSICIAN] - 1 Week (Patient to call Dr. Hernandez's office Friday to schedule follow up appointment. The office is closed at time of discharge. ) Patient Instructions/Handouts: Prednisone (By mouth), Shoulder Pain (GEN) Discharge Disposition: HOME SELF-CARE
--- NOTE | 2018-03-13 19:03 | P.CONS ---
History of Present Illness - Reason for Consult Consult date: 03/13/18 Renal Mass Requesting physician: Nisa Montano - Chief Complaint New renal and pulmonary masses - History of Present Illness Patient is very pleasant 78-year-old female was originally seen in [facility] for shoulder pain. She states the pain started approximately 2 weeks ago and has persisted to the point she is unable to move her shoulder. Initial work-up at outside hospital was completed. Showing calcifications in the left shoulder area along with tendinitis. A CT scan of the left shoulder incidentally showed about 4 lymph nodes in the anterior shoulder area. Further work-up from this incidental finding was completed and multiple pulmonary nodules as well as a lesion highly concerning for renal cell carcinoma in the inferior pole of the right kidney was revealed. She has known end-stage renal disease on hemodialysis on Friday and Friday. Because of these findings concerning for a possible malignant process Oncology has been consulted. Patient receiving diaylsis during assessement today. She is feeling ok, some lower back pain intermittent but otherwise no acute complaints. Review of Systems A 14 point review of systems assessed and completed and all negative except hpi Past Medical History Past Medical History: Heart Failure, Diabetes Mellitus, Hyperlipidemia, Hypertension, Myocardial Infarction (PA), Renal Disease Additional Past Medical History / Comment(s): CHF diastolic dysfunction, acute respiratory failure, silent PA per EKG about 30 some yrs ago, IDDM type II, chronic kidney disease stage III or IV, 07/2015 echo with EF 45-50% moderate mitral regurg, UTIs, anemia, hyperkalemia, acute metabolic encephalopathy, cellulitis bilateral feet in past, DJD, spinal stenosis, chronic back pain, vitamin D deficiency, GI bleed with ulcerative polyp removed, diverticulosis, shingeles Jul 2013, R eye blind. Peritonitis Last Myocardial Infarction Date:: unkn- 30 or more yrs ago per EKG History of Any Multi-Drug Resistant Organisms: None Reported Past Surgical History: Back Surgery, Orthopedic Surgery Additional Past Surgical History / Comment(s): 08/31/15 EGD with bx and colonoscopy with ulcerative polyp, right shoulder surgery - humerus ORIF, left ankle ORIF, low back surgery, multiple pain procedures, L cataract removal, R knee arthroscopy. Past Anesthesia/Blood Transfusion Reactions: No Reported Reaction Additional Past Anesthesia/Blood Transfusion Reaction / Comm: Pt states she has received blood in the past without reaction. Past Psychological History: No Psychological Hx Reported Additional Psychological History / Comment(s): Pt resides with her spouse. She is independent. She does not use any assistive device. She drives. Smoking Status: Never smoker Past Alcohol Use History: None Reported Past Drug Use History: None Reported - Past Family History Sister(s) Family Medical History: Cancer Additional Family Medical History / Comment(s): Ovarian cancer Brother(s) Family Medical History: Cancer Additional Family Medical History / Comment(s): colon Mother Family Medical History: Diabetes Mellitus Additional Family Medical History / Comment(s): Mother in her 80's Father History Unknown: Yes Additional Family Medical History / Comment(s): Father had a bowel obstruction. He at 84 yrs. Medications and Allergies Home Medications Medication Instructions Recorded Confirmed Type Cholecalciferol [Vitamin D3] 1,000 unit PO HS 08/24/15 03/13/18 History Lovastatin [Mevacor] 5 mg PO HS 08/24/15 03/13/18 History Cyanocobalamin [Vitamin B-12] 1,000 mcg PO HS 11/27/15 03/13/18 History Pyridoxine [Vitamin B-6] 100 mg PO HS 11/27/15 03/13/18 History Acetaminophen [Tylenol] 500 mg PO BID PRN 02/06/16 03/13/18 History Loperamide [Imodium] 2 mg PO QID PRN #20 cap 01/12/17 03/13/18 Rx Aspirin EC [Ecotrin Low Dose] 81 mg PO DAILY #0 03/13/18 03/13/18 Rx Calcium Carbonate [Tums] 1,000 mg PO BID 03/13/18 03/13/18 History Diltiazem Cd [Cardizem CD] 120 mg PO HS 03/13/18 03/13/18 History Furosemide [Lasix] 60 mg PO BID 03/13/18 03/13/18 History Insulin Aspart [NovoLOG Flexpen] 10 units SQ AC-TID 03/13/18 03/13/18 History Insulin Detemir [Levemir] 56 units SQ HS 03/13/18 03/13/18 History Metoprolol Succinate (ER) [Toprol 12.5 mg PO BID 03/13/18 03/13/18 History XL] Sodium Bicarb 20 Mg 20 mg PO BID 03/13/18 03/13/18 History predniSONE 10 mg PO DAILY #50 tab 03/13/18 Rx Allergies Allergy/AdvReac Type Severity Reaction Status Date / Time No Known Allergies Allergy Verified 12/28/16 11:24 Physical Exam Vitals: Vital Signs Temp Pulse Resp BP Pulse Ox 03/13/18 09:00 99 03/13/18 07:36 97 03/13/18 07:35 98.1 F 70 20 144/65 66 L 03/13/18 07:26 97 03/13/18 00:00 17 03/12/18 23:21 98.2 F 73 17 194/79 95 Intake and Output 03/12/18 03/13/18 03/13/18 22:59 06:59 14:59 Intake Total 840 Balance 840 Intake: Oral 840 Other: # Voids 1 Weight 84.3 kg - Constitutional General appearance: average body habitus, no acute distress - EENT Eyes: EOMI, PERRLA, dentition normal ENT: NA/AT, normal oropharynx - Neck Neck: lymphadenopathy, normal ROM - Respiratory Respiratory: bilateral: CTA - Cardiovascular Rhythm: regular Heart sounds: normal: S1, S2 leg Peripheral Edema: bilateral: Trace - Gastrointestinal General gastrointestinal: distended, normal bowel sounds, soft - Integumentary Integumentary: pale - Neurologic Neurologic: CNII-XII intact - Musculoskeletal Musculoskeletal: generalized weakness, strength equal bilaterally - Psychiatric Psychiatric: A&O x's 3, appropriate affect, intact judgment & insight Results CBC & Chem 7: 03/13/18 10:58 Labs: Abnormal Lab Results - Last 24 Hours (Table) 03/13/18 03/13/18 Range/Units 10:58 11:38 Potassium 6.1 H (3.5-5.1) mmol/L BUN 68 H (7-17) mg/dL Creatinine 3.65 H (0.52-1.04) mg/dL Glucose 323 H (74-99) mg/dL POC Glucose (mg/dL) 286 H (75-99) mg/dL CT scan - abdomen: report reviewed CT scan - chest: report reviewed CT scan - pelvis: report reviewed Assessment and Plan Plan: Assessment and Recommendations: 1. New Renal Mass with Lymphadenopathy and pulmonary Nodules: - Will plan Renal Biopsy as outpatient next week - Our office will arrange this for patient and call to schedule on Friday or Friday next week - Long discussion with patient and family related to possibility of potential metastatic malignant picture, biopsy needed to confirm diagnosis and present treatment options - Family and patient's questions answered and understanding stated - Reviewed diagnostic work-up from [facility] 2. End Stage Renal Disease - On Hemodialysis Physician Attestation: I have completed the Full History and physical of this patient and agree with above dictation by Ellen Medrano NP, Dictated as a scribe.
[2018-03-13] MEDS ORDERED: CHOLECALCIFEROL 1,000 UNIT TAB PO SCH (21:00)
[2018-03-13] MEDS ORDERED: INSULIN DETEMIR 100 UNIT/ML 10 ML VIAL SQ SCH (21:00)
[2018-03-13] MEDS ORDERED: DILTIAZEM CD 120 MG CAP.ER.24H PO SCH (21:00)
[2018-03-13] MEDS ORDERED: METOPROLOL SUCCINATE (ER) 25 MG TAB.ER.24H PO SCH (21:00)
[2018-03-13] MEDS ORDERED: PYRIDOXINE 50 MG TAB PO SCH (21:00)
[2018-03-13] MEDS ORDERED: SODIUM BICARBONATE TAB 650 MG TAB PO SCH (21:00)
[2018-03-13] MEDS ORDERED: CYANOCOBALAMIN 500 MCG TAB PO SCH (21:00)
[2018-03-13] MEDS ORDERED: CALCIUM CARBONATE 500 MG CHEWABLE PO SCH (21:00)
[2018-03-13] MEDS ORDERED: ATORVASTATIN 10 MG TAB PO SCH (21:00)
[2018-03-14] MEDS ORDERED: ASPIRIN 81 MG PO SCH (09:00)
== END 2018-03-13 19:16 | disposition home or self-care (01) ==
LOC: INTOOBSV 23:19 → 5ONC 23:19
PROVIDERS: ADMIT Internal Medicine; ATTEND Internal Medicine
DX: M75.32 Calcific tendinitis of left shoulder (principal); I13.2 Hypertensive heart and chronic kidney disease with heart failure and with stage 5 chronic kidney disease, or end stage renal disease; N18.6 End stage renal disease; Z99.2 Dependence on renal dialysis; E11.21 Type 2 diabetes mellitus with diabetic nephropathy; E11.40 Type 2 diabetes mellitus with diabetic neuropathy, unspecified; I50.30 Unspecified diastolic (congestive) heart failure; E87.5 Hyperkalemia; E78.5 Hyperlipidemia, unspecified; R82.71 Bacteriuria; R91.8 Other nonspecific abnormal finding of lung field; I25.2 Old myocardial infarction; E88.89 Other specified metabolic disorders; E66.9 Obesity, unspecified; Z68.29 Body mass index [BMI] 29.0-29.9, adult; D64.9 Anemia, unspecified; G89.29 Other chronic pain; M54.5 Low back pain; R59.1 Generalized enlarged lymph nodes; N28.89 Other specified disorders of kidney and ureter; E55.9 Vitamin D deficiency, unspecified; H54.61 Unqualified visual loss, right eye, normal vision left eye; I34.0 Nonrheumatic mitral (valve) insufficiency; M19.012 Primary osteoarthritis, left shoulder; M25.812 Other specified joint disorders, left shoulder; Z79.4 Long term (current) use of insulin; Z79.899 Other long term (current) drug therapy; Z79.82 Long term (current) use of aspirin; Z80.0 Family history of malignant neoplasm of digestive organs; Z80.41 Family history of malignant neoplasm of ovary; Z87.440 Personal history of urinary (tract) infections; Z95.828 Presence of other vascular implants and grafts
CPT/HCPCS: 80048; 84100; 73030; 90970; G0378 ×2; G0379; J7512; 90935